=== PATIENT | female | born 1950 | race Caucasian/White ===

== ENCOUNTER 2017-05-12 16:36 | Inpatient (IN) | payer MEDICAID, MEDICARE ==
[2017-05-12] MEDS ORDERED: Sodium Chloride 0.9% 1,000 ML IV ONE (16:49)
[2017-05-12 16:50] VITALS: BMI 29.9
--- NOTE | 2017-05-12 17:11 | RAD ---
PROCEDURE: CHEST RADIOGRAPH, 1 VIEW HISTORY: Overdosed COMPARISON: Comparison made with chest radiograph 06/10/13 FINDINGS: LUNGS: .Hazy appearance of both lungs likely technical due to patient positioning, large body habitus and underpenetration. Leg diffuse less likely though not completely excluded. No focalconsolidation. PLEURA: Consolidation. No evidence of pneumothorax new. CARDIOVASCULAR: Heart appears enlarged. Aorta is ectatic and uncoiled mild adjacent OSSEOUS STRUCTURES: No significant abnormalities. VISUALIZED UPPER ABDOMEN: Normal. OTHER FINDINGS: None. IMPRESSION: Hazy appearance of both lungs likely technical due to patient positioning, large body habitus and underpenetration. Leg diffuse less likely though not completely excluded. No focalconsolidation.
[2017-05-12 17:49] LABS: EOS # 0.1 K/uL (0.0-0.7); LYMPH # 1.2 K/uL (1.0-4.3); MONO # 0.6 K/uL (0.0-0.8); RED CELL DISTRIBUTION WIDTH 13.5 % (11.5-14.5); WHITE BLOOD COUNT 5.5 K/uL (4.8-10.8)
[2017-05-12 18:03] LABS: BASO % 0.3 % (0.0-2.0); EOS % 1.1 % (0.0-4.0); HEMOGLOBIN 11.1 g/dL (11.0-16.0); LYMPH % 21.8 % (20.0-40.0); MEAN CELL VOLUME 84.3 fL (81.0-99.0); MEAN CORPUSCULAR HEMOGLOBIN 29.7 pg (27.0-31.0); MEAN CORPUSCULAR HGB CONC 35.2 g/dL (33.0-37.0); MONO % 11.2 % (0.0-10.0); NEUT # 3.6 K/uL (1.8-7.0); NEUT % 65.6 % (50.0-75.0); RBC 3.73 Mil/uL (3.80-5.20)
[2017-05-12 18:07] LABS: ALB/GLOB RATIO 1.1 (1.0-2.1); ALBUMIN 3.6 g/dL (3.5-5.0); ALT/SGPT 59 U/L (9-52); AST/SGOT 62 U/L (14-36); BLOOD UREA NITROGEN 23 mg/dL (7-17); GFR AFRICAN-AMERICAN > 60; GFR NON-AFRICAN AMERICAN > 60; MAGNESIUM 1.8 mg/dL (1.6-2.3)
[2017-05-12 18:08] LABS: ACETAMINOPHEN < 10.0 ug/mL (10.0-30.0); SALICYLATE < 1.0 mg/dL 1
--- NOTE | 2017-05-12 18:10 | C.PDOC ---
History Of Present Illness <Charlie Berger - Last Filed: 05/13/17 00:31> <Radha Cooper - Last Filed: 05/13/17 08:12> 67 yr old female brought in via EMS from a rehab facility, presents to the ER for substance abuse. As per EMS and rehab facility faculty, someone is actively bringing in alcohol, Xanax and another unknown prescription medicine. Patient was found to have consumed a large amount of Ambien and Xanax from the last refill. ROS is unavailable. (Charlie Berger) History Per: EMS, Other (rehab faculty) History/Exam Limitations: no limitations Onset/Duration Of Symptoms: Unknown Current Symptoms Are (Timing): Still Present <Charlie Berger - Last Filed: 05/13/17 00:31> <Radha Cooper - Last Filed: 05/13/17 08:12> Time Seen by Provider: 05/12/17 16:48 Chief Complaint (Nursing): Substance Abuse Past Medical History Reviewed: Historical Data, Nursing Documentation, Vital Signs - Medical History PMH: Anxiety, Cardia Arrhythmia (TACHYCARDIA), Depression, Diabetes, HTN Family History: States: No Known Family Hx - Social History Hx Tobacco Use: Yes Hx Alcohol Use: Yes Hx Substance Use: Yes (PER UNIVERSAL TRANSFER FORM) - Immunization History Hx Influenza Vaccination: Yes Hx Pneumococcal Vaccination: Yes <Charlie Berger - Last Filed: 05/13/17 00:31> Vital Signs: Last Vital Signs Temp 98.4 F 05/13/17 07:34 Pulse 86 05/13/17 07:34 Resp 16 05/13/17 07:34 BP 118/78 05/13/17 07:34 Pulse Ox 96 05/13/17 07:34 Review Of Systems Review Of Systems: ROS cannot be obtained secondary to pt's inabilty to answer questions. <Charlie Berger - Last Filed: 05/13/17 00:31> Physical Exam - Physical Exam Appears: Non-toxic, Other ((+) intoxicated, alcohol on breath, belligerent, argumentative, obese) Skin: Warm, Dry, No Rash Eye(s): bilateral: Normal Inspection, PERRL, EOMI Lips: Normal Appearing Cardiovascular: Rhythm Regular, No Murmur Respiratory: Normal Breath Sounds, No Rales, No Rhonchi, No Wheezing Gastrointestinal/Abdominal: Normal Exam, Soft, No Tenderness, No Guarding, No Rebound Extremity: Normal ROM, No Swelling Neurological/Psych: Other (Patient is alert but intoxicated) <Charlie Berger - Last Filed: 05/13/17 00:31> ED Course And Treatment - Laboratory Results Result Diagrams: 05/12/17 17:42 05/12/17 17:42 ECG: Interpreted By Pa ECG Rhythm: Sinus Rhythm ECG Interpretation: Normal Rate From EC O2 Sat by Pulse Oximetry: 95 (RA) Pulse Ox Interpretation: Normal - Radiology CXR: Interpreted by Me CXR Interpretation: Yes: No Acute Disease Reevaluation Time: 01:00 Reassessment Condition: Improved (sitting up, arguing w staff, ate and drank food and juices. Coherent, sober, awake, aware. Pending p/u by her daughter "Kasandra" at "uknown time") <AbCharlie - Last Filed: 05/13/17 00:31> - Laboratory Results Result Diagrams: 05/12/17 17:42 05/12/17 17:42 <Radha Cooper - Last Filed: 05/13/17 08:12> Progress <AbCharlie - Last Filed: 05/13/17 00:31> - Data Reviewed Data Reviewed: Lab, Diagnostic imaging, EKG - Continuity of Care Discussed patient case with:: On-call PMD-pt unassigned <Radha Cooper - Last Filed: 05/13/17 08:12> - Re-Evaluation Re-evaluation Note: 05/13/17 07:00 S/O FROM DR SEGOVIA. PT KICKED OUT OF REHAB PROGRAM. FAMILY REFUSING TO TAKE PT HOME. PENDING ASSISTED PLACEMENT. MED CLEAR. 05/13/17 07:48 NO ACUTE INTOX. CLEAR SPEECH AO3. TOLERATING PO WO DIFF. PS NORMALLY USES A WALKER OR WC, CANNOT WALK WO ASSIST. PS DOES NOT WANT TO GO TO [facility]". UNSTEADY GAIT, CHRONIC. REQUIRES CONSTANT ASSISTANCE. 05/13/17 08:10 D/W DR ANDRADE [facility] WILL ADMIT. PLACE FULL INPT PER DR ANDRADE. (Radha Cooper) Medical Decision Making <Charlie Berger E - Last Filed: 05/13/17 00:31> <KennethRadha - Last Filed: 05/13/17 08:12> Medical Decision Making: PLAN: * CXR * EKG * Labs * Urinalysis * Sodium Chloride IV 0100: benzo abuse of prescribed Xanax while in Sub-acute Rehab, baseline psych issues. no sig tox issues today, back to baseline in ED, pending pickup by babitaugher d/c'd IV as pt repeatedly threatened to "rip it out" herself. extensive d/w Crisis Workers and Psych and [facility]- pt not welcomed back to [facility]- daughter aware. Too cold to d/c pt to street, she is essentially homeless so d/c to daughter's care is pts only option. (Charlie Berger) Disposition Doctor Will See Patient In The: Office Counseled Patient/Family Regarding: Studies Performed, Diagnosis - Disposition Disposition Time: 01:00 <Charlie Berger - Last Filed: 05/13/17 00:31> Counseled Patient/Family Regarding: Studies Performed, Diagnosis, Need For Followup, Smoking Cessation - Disposition Disposition Time: 08:11 - POA Present On Arrival: None <Radha Cooper - Last Filed: 05/13/17 08:12> - Disposition Referrals: YOUR,PMD [Other] Disposition: HOSPITALIZED Condition: STABLE Forms: [employer] (Macedonian) - Clinical Impression Clinical Impression: Schizophrenia, Benzodiazepine abuse, Gait instability, Chronic pain, Homeless - Scribe Statement The provider has reviewed the documentation as recorded by the Scribe <Charlie Berger - Last Filed: 05/13/17 00:31> <Radha Cooper - Last Filed: 05/13/17 08:12> - Scribe Statement Sarah Zurita (Charlie Berger) Provider Attestation: All medical record entries made by the Scribe were at my direction and personally dictated by me. I have reviewed the chart and agree that the record accurately reflects my personal performance of the history, physical exam, medical decision making, and the department course for this patient. I have also personally directed, reviewed, and agree with the discharge instructions and disposition. (Charlie Berger) Physician Patient Turnover Patient Signed Over To: Dorie Segovia Handoff Comments: dispo when pt's daughter comes to pick her up. <Charlie Berger - Last Filed: 05/13/17 00:31> Decision To Admit <Charlie Berger - Last Filed: 05/13/17 00:31> - Pt Status Changed To: Hospital Disposition Of: Inpatient - Admit Certification Admit to Inpatient:: After my assessment, the patient will require hospitalization for at least two midnights. This is because of the severity of symptoms shown, intensity of services needed, and/or the medical risk in this patient being treated as an outpatient. - InPatient: Physician Admission Certification: I certify that this patient requires 2 or more midnights of care for the following reason:: SEE NOTE - . Bed Request Type: Regular Admitting Physician: Shauna Andrade <Radha Cooper - Last Filed: 05/13/17 08:12> - . Patient Diagnosis: Schizophrenia, Benzodiazepine abuse, Gait instability
[2017-05-12 18:47] LABS: BARBITURATES, UR NEGATIVE (NEGATIVE); OPIATES, UR NEGATIVE (NEGATIVE); PHENCYCLIDINE, UR NEGATIVE (NEGATIVE)
[2017-05-12 18:49] LABS: BENZODIAZEPINES, UR POSITIVE (NEGATIVE)
[2017-05-12 19:08] LABS: SQUAMOUS EPITHIAL 8 /hpf (0-5); URINE BACTERIA MANY (<OCC); URINE BILIRUBIN NEGATIVE (NEGATIVE); URINE BLOOD NEGATIVE (NEGATIVE); URINE CLARITY Hazy (Clear); URINE COLOR Yellow (YELLOW); URINE GLUCOSE (UA) NORMAL (Normal); URINE LEUKOCYTE ESTERASE TRACE Leu/uL (Negative); URINE NITRATE POSITIVE (NEGATIVE); URINE PROTEIN NEGATIVE (NEGATIVE)
[2017-05-13 11:48] LABS: BASO % 0.4 % (0.0-2.0); EOS # 0.1 K/uL (0.0-0.7); EOS % 2.1 % (0.0-4.0); HEMOGLOBIN 10.8 g/dL (11.0-16.0); LYMPH # 1.1 K/uL (1.0-4.3); LYMPH % 29.7 % (20.0-40.0); MEAN CELL VOLUME 84.6 fL (81.0-99.0); MEAN CORPUSCULAR HEMOGLOBIN 28.5 pg (27.0-31.0); MEAN CORPUSCULAR HGB CONC 33.7 g/dL (33.0-37.0); MEAN PLATELET VOLUME 10.1 fL (7.2-11.7); MONO # 0.4 K/uL (0.0-0.8); MONO % 10.9 % (0.0-10.0); NEUT # 2.1 K/uL (1.8-7.0); NEUT % 56.9 % (50.0-75.0); RBC 3.78 Mil/uL (3.80-5.20); RED CELL DISTRIBUTION WIDTH 13.2 % (11.5-14.5); WHITE BLOOD COUNT 3.7 K/uL (4.8-10.8)
[2017-05-13 12:08] LABS: ALB/GLOB RATIO 1.1 (1.0-2.1); ALBUMIN 3.5 g/dL (3.5-5.0); ALT/SGPT 47 U/L (9-52); AST/SGOT 45 U/L (14-36); BLOOD UREA NITROGEN 14 mg/dL (7-17); CALCIUM 8.6 mg/dl (8.6-10.4); GFR AFRICAN-AMERICAN > 60; GFR NON-AFRICAN AMERICAN > 60; MAGNESIUM 1.8 mg/dL (1.6-2.3)
[2017-05-13 13:37] VITALS: RESP 20
--- NOTE | 2017-05-13 15:39 | PCM.PSYCH ---
Initial Psychiatric Evaluation - Initial Psychiatric Evaluation Type of Admission: Voluntary Legal Status: Capacity History of Present Illness and Precipitating Events: Patient is 67 y/o HF, who was escorted to the ED from the [facility] Nursing, because of manic and disorganized behavior. Pt was a poor historian. She remained manic, talkative, irritable and disorganized during the interview. She remained angry, and continued to refuse to answer all the questions. She was mad at the nurses and she was refusing to take the medications. When asked, she replied they are trying to put me to sleep. She appeared anxious and suspicious, and appeared to have loose associations. As per the staff, pt remained irritable and agitated, since yesterday. She reports that 'she is unable to sleep for few days and feeling very anxious and they ([facility]) dropped her to the ED.' However, she wants to go back to the rehab. She denies any AVH and denies any SI/HI. Current Medications: Active Medications Generic Name Dose Route Start Last Admin Trade Name Alison PRN Reason Stop Dose Admin Alprazolam 1 mg 05/13/17 15:32 Xanax PO 05/13/17 15:33 STAT STA Famotidine 20 mg 05/13/17 10:00 05/13/17 08:42 Pepcid PO 20 mg BID PRABHA Administration Gabapentin 300 mg 05/13/17 18:00 Neurontin PO TID PRABHA Hydroxyzine HCl 25 mg 05/13/17 15:32 Atarax PO Q6 PRN Agitation Lorazepam 1 mg 05/13/17 15:33 Ativan PO Q6 PRN Anxiety Trazodone HCl 50 mg 05/13/17 22:00 Desyrel PO HS [facility] Past Psychiatric History - Past Psychiatric History Previous Treatment History: None Pertinent Medical Hx (Current Medical&Sleep Prob, Allergies): Allergies Allergy/AdvReac Type Severity Reaction Status Date / Time dust Allergy Uncoded 05/12/17 16:50 Acetaminophen 325 mg PO Q4 PRN 05/12/17 Bisacodyl [Dulcolax] 10 mg RC PRN PRN 05/12/17 Ferrous Sulfate 325 mg PO DAILY 05/12/17 Folic Acid 1 mg PO DAILY 05/12/17 Furosemide 40 mg PO Q12 05/12/17 Haloperidol [Haldol] 0.5 mg PO HS 05/12/17 Insulin Aspart, Recombinant [Novolog] See Protocol SC ACHS 05/12/17 LORazepam [Ativan] 1 mg PO Q6 PRN 05/12/17 Losartan Potassium [Cozaar] 100 mg PO DAILY 05/12/17 Magnesium Hydroxide [Milk Of Magnesia] 30 ml PO DAILY PRN 05/12/17 Multivitamin [Multivitamins] 1 each PO DAILY 05/12/17 Omeprazole 20 mg PO DAILY 05/12/17 Oxycodone HCl/Acetaminophen [Acetaminophen-Oxycodone 325 mg-5 mg] 1 tab PO Q8 PRN 05/12/17 Thiamine [Vitamin B-1] 100 mg PO DAILY 05/12/17 Zolpidem [Ambien] 10 mg PO HS 05/12/17 amLODIPine [Norvasc] 10 mg PO DAILY 05/12/17 Review of Systems - Review of Systems All systems: reviewed and no additional remarkable complaints except - Psychiatric Psychiatric: Anxiety, Irritability. absent: Suicidal Ideation Mental Status Examination - Personal Presentation Personal Presentation: Looks stated age - Affect Affect: Constricted - Motor Activity Motor Activity: Psychomotor Agitation - Reliability in Providing Information Reliability in Providing Information: Poor, due to altered mood - Speech Speech: Disorganized - Mood Mood: Anxious - Formal Thought Process Formal Thought Process: Paranoia, Loosening of associations - Hallucinations/Delusions Delusions: Persecution - Obsessions/Compulsions Obsessions: No Compulsions: No - Cognitive Functions Orientation: Person, Place, Situation, Time Sensorium: Alert Attention/Concentration: Attentive Abstract Thinking: [place] Estimate of Intelligence: Below average Judgement: Imparied, as evidence by: Poor judgement, Imparied, as evidence by: Lack of insight into illness - Risk Risk: Diminished functioning - Limitations Limitations: Living alone DSM 5 DX - DSM 5 DSM 5 Diagnosis: Bipolar disorder mixed severe with psychotic features Generalized anxiety disorder - Recommended/Plan of Treatment Treatment Recommendations and Plan of Treatment: Bipolar disorder mixed severe with psychotic features Trazodone 50 mg by mouth daily at bedtime Neurontin 300 mg by mouth 3 times a day Risperdal 1 mg by mouth daily at bedtime Cogentin 1 mg by mouth daily at bedtime Generalized anxiety disorder Sedative/hypnotic use disorder severe Ativan when necessary - Smoking Cessation Smoking Cessation Initiated: No
[2017-05-13] MEDS ORDERED: Dextrose 50% SYRINGE Inj (50 ml) IV PRN (17:52)
[2017-05-13] MEDS ORDERED: Glucagon Recombinant 1 mg Inj IM PRN (17:52)
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
[2017-05-13] MEDS: (Novolin R) Insulin Human Regular 100 units/ml vial SC SCH (21:31)
[2017-05-14 07:39] LABS: BASO % 0.4 % (0.0-2.0); EOS # 0.1 K/uL (0.0-0.7); EOS % 2.9 % (0.0-4.0); HEMOGLOBIN 11.4 g/dL (11.0-16.0); LYMPH # 1.3 K/uL (1.0-4.3); LYMPH % 33.6 % (20.0-40.0); MEAN CELL VOLUME 84.4 fL (81.0-99.0); MEAN CORPUSCULAR HEMOGLOBIN 28.9 pg (27.0-31.0); MEAN CORPUSCULAR HGB CONC 34.3 g/dL (33.0-37.0); MEAN PLATELET VOLUME 9.8 fL (7.2-11.7); MONO # 0.3 K/uL (0.0-0.8); MONO % 8.6 % (0.0-10.0); NEUT # 2.1 K/uL (1.8-7.0); NEUT % 54.5 % (50.0-75.0); RBC 3.95 Mil/uL (3.80-5.20); RED CELL DISTRIBUTION WIDTH 13.1 % (11.5-14.5); WHITE BLOOD COUNT 3.8 K/uL (4.8-10.8)
[2017-05-14 07:43] LABS: ALB/GLOB RATIO 1.1 (1.0-2.1); ALBUMIN 3.6 g/dL (3.5-5.0); ALT/SGPT 42 U/L (9-52); AST/SGOT 35 U/L (14-36); BLOOD UREA NITROGEN 10 mg/dL (7-17); CALCIUM 8.9 mg/dl (8.6-10.4); GFR AFRICAN-AMERICAN > 60; GFR NON-AFRICAN AMERICAN > 60; HDL CHOLESTEROL 19 mg/dL (30-70); MAGNESIUM 1.8 mg/dL (1.6-2.3)
[2017-05-14 07:45] LABS: LDL CHOLESTEROL 93 mg/dL (0-129)
[2017-05-14] MEDS: (Novolin R) Insulin Human Regular 100 units/ml vial SC SCH ×4 (08:50→21:18)
[2017-05-14] MEDS: Pantoprazole 40 mg EC Tab PO SCH (09:50)
--- NOTE | 2017-05-14 11:04 | CP.PCM.PN ---
<Kel Moura - Last Filed: 05/14/17 16:09> Subjective - Date & Time of Evaluation Date of Evaluation: 05/14/17 Time of Evaluation: 07:30 - Subjective Subjective: Medicine progress note for Dr. Choe Patient seen and examined. Patient reports continuation of chronic body aches primarily in the low back with radiation to the extremities. Patient denies fever, chills, chest pain, dyspnea, abdominal pain. Objective - Vital Signs/Intake and Output Vital Signs (last 24 hours): Temp Pulse Resp BP Pulse Ox 98.5 F 86 20 135/76 97 05/14/17 08:30 05/14/17 08:30 05/14/17 08:30 05/14/17 08:30 05/14/17 08:30 Intake and Output: 05/14/17 05/14/17 06:59 18:59 Intake Total 690 Balance 690 - Medications Medications: Current Medications Benztropine Mesylate (Cogentin) 1 mg PO HS [facility] Last Admin: 05/13/17 21:28 Dose: 1 mg Dextrose (Dextrose 50% Inj) 0 ml IV STAT PRN; Protocol PRN Reason: Hypoglycemia Protocol Dextrose (Glutose 15) 0 gm PO ONCE PRN; Protocol PRN Reason: Hypoglycemia Protocol Gabapentin (Neurontin) 300 mg PO TID [facility] Last Admin: 05/14/17 09:50 Dose: 300 mg Glucagon (Glucagen Diagnostic Kit) 0 mg IM STAT PRN; Protocol PRN Reason: Hypoglycemia Protocol Hydroxyzine HCl (Atarax) 25 mg PO Q6 PRN PRN Reason: Agitation Last Admin: 05/14/17 09:51 Dose: 25 mg Dextrose (Dextrose 5% In Water 1000 Ml) 1,000 mls @ 0 mls/hr IV .Q0M PRN; Protocol; Per Protocol PRN Reason: Hypoglycemia Protocol Insulin Human Regular (Novolin R) 0 unit SC ACHS [facility] PRN Reason: Protocol Last Admin: 05/14/17 08:50 Dose: 3 unit Lorazepam (Ativan) 1 mg PO Q6 PRN PRN Reason: Anxiety Nitrofurantoin Macrocrystals (Macrobid) 100 mg PO Q12H [facility] Last Admin: 05/14/17 09:51 Dose: 100 mg Pantoprazole Sodium (Protonix Ec Tab) 40 mg PO DAILY [facility] Last Admin: 05/14/17 09:50 Dose: 40 mg Risperidone (Risperdal Tab) 1 mg PO HS [facility] Last Admin: 05/13/17 21:30 Dose: 1 mg Trazodone HCl (Desyrel) 50 mg PO [facility] Last Admin: 05/13/17 21:28 Dose: 50 mg - Labs Labs: 05/14/17 06:54 05/14/17 06:54 - Constitutional Appears: No Acute Distress - Head Exam Head Exam: ATRAUMATIC, NORMOCEPHALIC - Eye Exam Eye Exam: EOMI, Normal appearance - ENT Exam ENT Exam: Mucous Membranes Moist - Respiratory Exam Respiratory Exam: Clear to Ausculation Bilateral, NORMAL BREATHING PATTERN. absent: Rales, Rhonchi, Wheezes - Cardiovascular Exam Cardiovascular Exam: REGULAR RHYTHM, +S1, +S2 - GI/Abdominal Exam GI & Abdominal Exam: Soft, Normal Bowel Sounds. absent: Distended, Guarding, Tenderness - Extremities Exam Extremities Exam: absent: Pedal Edema Additional comments: venous stasis changes bilaterally - Neurological Exam Neurological Exam: Alert, Awake, Oriented x3 - Psychiatric Exam Psychiatric exam: Anxious - Skin Skin Exam: Dry, Warm Assessment and Plan - Assessment and Plan (Free Text) Plan: Polysubstance Abuse Psychiatry recs: Cogentine 1mg PO HS Gabapentine 300mg PO TID Hydroxyzine 25mg PO Q6 prn Ativan 1mg PO Q6 prn Risperidone 1mg PO HS UDS positive for benzos 1:1 for observation Patient was found taking more medications than she was being given in rehab. Apparently other people were bringing meds and alcohol into the facility. Patient denies. She actually says that they have been taking medications from her. Unsteady Gait f/u Case managment for placement Patient can only ambulate with walker and needs assistance Diabetes Accuchecks ACHS ISS Hypoglycemis protocol Hgba1c 10 lipid panel unremarkable f/u TSH, free T4 UTI + nitrate and WBC Urine cultures grew gram neg rods Macrobid 100 mg PO Q12 Prophylactic Measures SCDS VTE contraindicated due to thrombocytopenic Protonix 40mg PO daily PT/OT Diabetic diet Patient refusing IV access. Disposition: Will need to follow up with social work team for discharge planning. Case DW Dr. Daija Moura PGY-1 <Mynor Choe H - Last Filed: 05/14/17 16:40> Objective - Vital Signs/Intake and Output Vital Signs (last 24 hours): Temp Pulse Resp BP Pulse Ox 98.5 F 86 20 135/76 97 05/14/17 08:30 05/14/17 08:30 05/14/17 08:30 05/14/17 08:30 05/14/17 08:30 Intake and Output: 05/14/17 05/14/17 06:59 18:59 Intake Total 690 Balance 690 - Medications Medications: Current Medications Benztropine Mesylate (Cogentin) 1 mg PO [facility] Last Admin: 05/13/17 21:28 Dose: 1 mg Dextrose (Dextrose 50% Inj) 0 ml IV STAT PRN; Protocol PRN Reason: Hypoglycemia Protocol Dextrose (Glutose 15) 0 gm PO ONCE PRN; Protocol PRN Reason: Hypoglycemia Protocol Gabapentin (Neurontin) 300 mg PO TID [facility] Last Admin: 05/14/17 14:47 Dose: Not Given Glucagon (Glucagen Diagnostic Kit) 0 mg IM STAT PRN; Protocol PRN Reason: Hypoglycemia Protocol Hydroxyzine HCl (Atarax) 25 mg PO Q6 PRN PRN Reason: Agitation Last Admin: 05/14/17 09:51 Dose: 25 mg Dextrose (Dextrose 5% In Water 1000 Ml) 1,000 mls @ 0 mls/hr IV .Q0M PRN; Protocol; Per Protocol PRN Reason: Hypoglycemia Protocol Insulin Human Regular (Novolin R) 0 unit SC [facility] PRN Reason: Protocol Last Admin: 05/14/17 13:00 Dose: 4 unit Lorazepam (Ativan) 1 mg PO Q6 PRN PRN Reason: Anxiety Last Admin: 05/14/17 15:45 Dose: 1 mg Nitrofurantoin Macrocrystals (Macrobid) 100 mg PO Q12H [facility] Last Admin: 05/14/17 09:51 Dose: 100 mg Pantoprazole Sodium (Protonix Ec Tab) 40 mg PO DAILY [facility] Last Admin: 05/14/17 09:50 Dose: 40 mg Pneumococcal Polyvalent Vaccine (Pneumovax 23 Vaccine) 0.5 ml IM .ONCE ONE Stop: 05/16/17 10:01 Risperidone (Risperdal Tab) 1 mg PO [facility] Last Admin: 05/13/17 21:30 Dose: 1 mg Trazodone HCl (Desyrel) 50 mg PO [facility] Last Admin: 05/13/17 21:28 Dose: 50 mg - Labs Labs: 05/14/17 06:54 05/14/17 06:54 Attending/Attestation - Attestation I have personally seen and examined this patient.: Yes I have fully participated in the care of the patient.: Yes I have reviewed all pertinent clinical information, including history, physical exam and plan: Yes Notes (Text): Medical attending: Patient was seen and examined by me, agrees the above note by medical laboratory assistant. Reviewed the above note by the resident and agree. This is my first time meeting patient, I had reviewed the previous notes as well discussed with the patient and the medical staff. It seems that she was recently at [facility] when they reportedly were very concerned about the patient taking an over the large amount of medication in particular narcotics. It seems that she does get Percocet as well as extended release morphine on a regular basis however the message that we are getting is that there was a family member bring in even more controlled substances. When I saw her this morning, she reported on the chronic back as well as leg pain that has been going on for quite some time now. She tells me that she is normally wheelchair-bound. At this moment she is receiving gabapentin, Ativan, and risperidone per psychiatry. I explained to the patient that we listened to her concerns about her pain. Because she just came in yesterday and was reportedly very somnolent were still going to have alternating additional pain medication that she is asking for. Regarding her reevaluate her again tomorrow and make a decision if the patient could be restarted on regular pain medication. But as of now we are reluctant to restart these medications. Thank you very much, Mynor Choe
[2017-05-14] MEDS: Divalproex 250 mg DR Tab PO SCH (22:53)
[2017-05-15 06:53] LABS: BASO % 0.3 % (0.0-2.0); EOS # 0.1 K/uL (0.0-0.7); EOS % 2.8 % (0.0-4.0); LYMPH # 1.7 K/uL (1.0-4.3); LYMPH % 35.2 % (20.0-40.0); MEAN CELL VOLUME 84.3 fL (81.0-99.0); MEAN CORPUSCULAR HGB CONC 34.5 g/dL (33.0-37.0); MEAN PLATELET VOLUME 9.3 fL (7.2-11.7); MONO # 0.4 K/uL (0.0-0.8); MONO % 8.9 % (0.0-10.0); NEUT # 2.5 K/uL (1.8-7.0); NEUT % 52.8 % (50.0-75.0); NRBC % 0.1 % (0.0-2.0); RBC 4.13 Mil/uL (3.80-5.20); RED CELL DISTRIBUTION WIDTH 13.5 % (11.5-14.5); WHITE BLOOD COUNT 4.8 K/uL (4.8-10.8)
--- NOTE | 2017-05-15 07:14 | CP.PCM.PN ---
<Kel Moura - Last Filed: 05/15/17 12:41> Subjective - Date & Time of Evaluation Date of Evaluation: 05/15/17 Time of Evaluation: 07:00 - Subjective Subjective: Medicine progress note for Dr. Choe Patient seen and examined. Patient continuing to complain of diffuse body pain and lower back pain. Patient also complaining of leg pains and paresthesias although she has been refusing her Gabapentin. Patient was very anxious this morning when seen on rounds. Objective - Vital Signs/Intake and Output Vital Signs (last 24 hours): Temp Pulse Resp BP Pulse Ox 98.4 F 85 20 155/98 H 96 05/15/17 00:00 05/15/17 00:00 05/15/17 00:00 05/15/17 00:00 05/15/17 00:00 Intake and Output: 05/15/17 05/15/17 06:59 18:59 Intake Total 240 Balance 240 - Medications Medications: Current Medications Alprazolam (Xanax) 0.5 mg PO TID PRN PRN Reason: Anxiety Benztropine Mesylate (Cogentin) 1 mg PO [facility] Last Admin: 05/14/17 21:13 Dose: 1 mg Dextrose (Dextrose 50% Inj) 0 ml IV STAT PRN; Protocol PRN Reason: Hypoglycemia Protocol Dextrose (Glutose 15) 0 gm PO ONCE PRN; Protocol PRN Reason: Hypoglycemia Protocol Divalproex Sodium (Depakote Dr) 250 mg PO [facility] Last Admin: 05/14/17 22:53 Dose: 250 mg Divalproex Sodium (Depakote Dr) 250 mg PO BID [facility] Gabapentin (Neurontin) 300 mg PO TID [facility] Last Admin: 05/14/17 19:06 Dose: Not Given Glucagon (Glucagen Diagnostic Kit) 0 mg IM STAT PRN; Protocol PRN Reason: Hypoglycemia Protocol Hydroxyzine HCl (Atarax) 25 mg PO Q6 PRN PRN Reason: Agitation Last Admin: 05/14/17 09:51 Dose: 25 mg Dextrose (Dextrose 5% In Water 1000 Ml) 1,000 mls @ 0 mls/hr IV .Q0M PRN; Protocol; Per Protocol PRN Reason: Hypoglycemia Protocol Insulin Human Regular (Novolin R) 0 unit SC [facility] PRN Reason: Protocol Last Admin: 05/14/17 21:18 Dose: 2 unit Lorazepam (Ativan) 1 mg PO Q6 PRN PRN Reason: Anxiety Last Admin: 05/14/17 23:56 Dose: 1 mg Nitrofurantoin Macrocrystals (Macrobid) 100 mg PO Q12H [facility] Last Admin: 05/14/17 21:13 Dose: 100 mg Pantoprazole Sodium (Protonix Ec Tab) 40 mg PO DAILY [facility] Last Admin: 05/14/17 09:50 Dose: 40 mg Pneumococcal Polyvalent Vaccine (Pneumovax 23 Vaccine) 0.5 ml IM .ONCE ONE Stop: 05/16/17 10:01 Risperidone (Risperdal Tab) 1 mg PO HS [facility] Last Admin: 05/14/17 21:13 Dose: 1 mg Trazodone HCl (Desyrel) 50 mg PO [facility] Last Admin: 05/14/17 21:13 Dose: 50 mg - Labs Labs: 05/15/17 06:42 05/14/17 06:54 - Additional Findings Additional findings: - Constitutional Appears: No Acute Distress - Head Exam Head Exam: ATRAUMATIC, NORMOCEPHALIC - Eye Exam Eye Exam: EOMI, Normal appearance - ENT Exam ENT Exam: Mucous Membranes Moist - Respiratory Exam Respiratory Exam: Clear to Ausculation Bilateral, NORMAL BREATHING PATTERN. absent: Rales, Rhonchi, Wheezes - Cardiovascular Exam Cardiovascular Exam: REGULAR RHYTHM, +S1, +S2 - GI/Abdominal Exam GI & Abdominal Exam: Soft, Normal Bowel Sounds. absent: Distended, Guarding, Tenderness - Extremities Exam Extremities Exam: absent: Pedal Edema Additional comments: venous stasis changes bilaterally - Neurological Exam Neurological Exam: Alert, Awake, Oriented x3 - Psychiatric Exam Psychiatric exam: Anxious - Skin Skin Exam: Dry, Warm Assessment and Plan - Assessment and Plan (Free Text) Plan: Polysubstance Abuse Psychiatry recs: Cogentine 1mg PO HS Gabapentine 300mg PO TID Hydroxyzine 25mg PO Q6 prn Ativan 1mg PO Q6 prn Risperidone 1mg PO HS UDS positive for benzos 1:1 for observation Patient was found taking more medications than she was being given in rehab. Apparently other people were bringing meds and alcohol into the facility. Patient denies. She actually says that they have been taking medications from her. Unsteady Gait and diffuse pain f/u Case managment for placement Patient can only ambulate with walker and needs assistance Resumed MISA medication Percocet 5/325 Q8H prn Started Oxycontin 20 mg PO Q12H [facility] Diabetes Accuchecks ACHS ISS Hypoglycemis protocol Hgba1c 10 lipid panel unremarkable f/u TSH, free T4 UTI + nitrate and WBC Urine cultures grew E. coli. Limited in what can be given since patient refusing IV access. Macrobid 100 mg PO Q12 Prophylactic Measures SCDS VTE contraindicated due to thrombocytopenic Protonix 40mg PO daily PT/OT Diabetic diet Disposition: Will need to follow up with social work team for discharge planning. Case DW Dr. Daija Moura PGY-1 <Mynor Choe H - Last Filed: 05/15/17 16:45> Objective - Vital Signs/Intake and Output Vital Signs (last 24 hours): Temp Pulse Resp BP Pulse Ox 98.4 F 85 20 155/98 H 96 05/15/17 00:00 05/15/17 00:00 05/15/17 00:00 05/15/17 00:00 05/15/17 00:00 Intake and Output: 05/15/17 05/15/17 06:59 18:59 Intake Total 240 Balance 240 - Medications Medications: Current Medications Alprazolam (Xanax) 0.5 mg PO TID PRN PRN Reason: Anxiety Benztropine Mesylate (Cogentin) 1 mg PO HS [facility] Last Admin: 05/14/17 21:13 Dose: 1 mg Dextrose (Dextrose 50% Inj) 0 ml IV STAT PRN; Protocol PRN Reason: Hypoglycemia Protocol Dextrose (Glutose 15) 0 gm PO ONCE PRN; Protocol PRN Reason: Hypoglycemia Protocol Divalproex Sodium (Depakote Dr) 250 mg PO HS [facility] Last Admin: 05/14/17 22:53 Dose: 250 mg Divalproex Sodium (Depakote Dr) 250 mg PO BID [facility] Last Admin: 05/15/17 09:31 Dose: 250 mg Gabapentin (Neurontin) 300 mg PO TID [facility] Last Admin: 05/15/17 13:11 Dose: Not Given Glucagon (Glucagen Diagnostic Kit) 0 mg IM STAT PRN; Protocol PRN Reason: Hypoglycemia Protocol Hydroxyzine HCl (Atarax) 25 mg PO Q6 PRN PRN Reason: Agitation Last Admin: 05/14/17 09:51 Dose: 25 mg Dextrose (Dextrose 5% In Water 1000 Ml) 1,000 mls @ 0 mls/hr IV .Q0M PRN; Protocol; Per Protocol PRN Reason: Hypoglycemia Protocol Insulin Human Regular (Novolin R) 0 unit SC ACHS [facility] PRN Reason: Protocol Last Admin: 05/15/17 11:45 Dose: 6 unit Lorazepam (Ativan) 1 mg PO Q6 PRN PRN Reason: Anxiety Last Admin: 05/15/17 11:05 Dose: 1 mg Nitrofurantoin Macrocrystals (Macrobid) 100 mg PO Q12H [facility] Last Admin: 05/15/17 09:07 Dose: 100 mg Oxycodone HCl (Oxycontin Extended Release Tab) 20 mg PO Q12 [facility] Last Admin: 05/15/17 11:45 Dose: 20 mg Oxycodone/Acetaminophen (Percocet 5/325 Mg Tab) 1 tab PO Q8 PRN PRN Reason: Pain, severe (8-10) Stop: 05/18/17 08:56 Last Admin: 05/15/17 09:06 Dose: 1 tab Pantoprazole Sodium (Protonix Ec Tab) 40 mg PO DAILY [facility] Last Admin: 05/15/17 09:06 Dose: 40 mg Pneumococcal Polyvalent Vaccine (Pneumovax 23 Vaccine) 0.5 ml IM .ONCE ONE Stop: 05/16/17 10:01 Risperidone (Risperdal Tab) 1 mg PO [facility] Last Admin: 05/14/17 21:13 Dose: 1 mg Trazodone HCl (Desyrel) 50 mg PO [facility] Last Admin: 05/14/17 21:13 Dose: 50 mg - Labs Labs: 05/15/17 06:42 05/15/17 06:42 Attending/Attestation - Attestation I have personally seen and examined this patient.: Yes I have fully participated in the care of the patient.: Yes I have reviewed all pertinent clinical information, including history, physical exam and plan: Yes Notes (Text): 05/15/17 16:45 Medical attending: Patient was seen and examined by me as well, agrees the above note by the medical doctor nuclear medicine. At this morning when we came and saw the patient she was sitting up in bed, she was crying. She reported feeling very anxious, nervous, worried, chronic pain, It was difficult to have conversation with her today. Earlier in the morning because of repeat phone calls of the patient having pain we decided to restart her Percocet and later on in the day her blood pressure was still okay so we started a long acting OxyContin XR. I told this to her however he does of her history of potential either overdose or abuse were not to give much more than this. Because she was so agitated and angry when where walking and I don't know if she actually understood this or even hurt this. So per my discussion with caseworkers were to try see if there is a place that the patient can go to for [id number] Thank you very much, Mynor Choe
[2017-05-15] MEDS: (Novolin R) Insulin Human Regular 100 units/ml vial SC SCH ×4 (08:05→21:25)
[2017-05-15 08:19] LABS: ALBUMIN 3.6 g/dL (3.5-5.0); ALT/SGPT 37 U/L (9-52); AST/SGOT 27 U/L (14-36); BLOOD UREA NITROGEN 11 mg/dL (7-17); GFR AFRICAN-AMERICAN > 60; GFR NON-AFRICAN AMERICAN > 60; MAGNESIUM 1.6 mg/dL (1.6-2.3)
[2017-05-15] MEDS: Oxycodone/Acetaminophen 5/325 mg Tab PO PRN (09:06)
[2017-05-15] MEDS: Pantoprazole 40 mg EC Tab PO SCH (09:06)
[2017-05-15] MEDS ORDERED: Potassium Chloride 20 mEq/15 ml LIQ UD PO ONE (09:26)
[2017-05-15] MEDS: Divalproex 250 mg DR Tab PO SCH ×3 (09:31→21:21)
[2017-05-15] MEDS: oxyCODONE 20 mg ER Tab (oxyCONTIN) PO SCH ×2 (11:45→21:22)
--- NOTE | 2017-05-16 07:16 | CP.PCM.PN ---
<Kel Moura S - Last Filed: 05/16/17 12:57> Subjective - Date & Time of Evaluation Date of Evaluation: 05/16/17 Time of Evaluation: 07:50 - Subjective Subjective: Medicine progress note for Dr. Choe Patient seen and examined. Patient states that her pain is improved, and she was able to get some sleep. Patient with no other complaints at this time aside from her continued complaints about [facility]. Objective - Vital Signs/Intake and Output Vital Signs (last 24 hours): Temp Pulse Resp BP Pulse Ox 99.1 F 98 H 20 120/78 100 05/16/17 00:00 05/16/17 00:00 05/16/17 00:00 05/16/17 00:00 05/16/17 00:00 Intake and Output: 05/16/17 05/16/17 06:59 18:59 Intake Total 360 Balance 360 - Medications Medications: Current Medications Alprazolam (Xanax) 0.5 mg PO TID PRN PRN Reason: Anxiety Benztropine Mesylate (Cogentin) 1 mg PO [facility] Last Admin: 05/15/17 21:21 Dose: 1 mg Dextrose (Dextrose 50% Inj) 0 ml IV STAT PRN; Protocol PRN Reason: Hypoglycemia Protocol Dextrose (Glutose 15) 0 gm PO ONCE PRN; Protocol PRN Reason: Hypoglycemia Protocol Divalproex Sodium (Depakote Dr) 250 mg PO [facility] Last Admin: 05/15/17 21:21 Dose: 250 mg Divalproex Sodium (Depakote Dr) 250 mg PO BID [facility] Last Admin: 05/15/17 17:48 Dose: 250 mg Gabapentin (Neurontin) 300 mg PO TID [facility] Last Admin: 05/15/17 21:22 Dose: Not Given Glucagon (Glucagen Diagnostic Kit) 0 mg IM STAT PRN; Protocol PRN Reason: Hypoglycemia Protocol Hydroxyzine HCl (Atarax) 25 mg PO Q6 PRN PRN Reason: Agitation Last Admin: 05/14/17 09:51 Dose: 25 mg Dextrose (Dextrose 5% In Water 1000 Ml) 1,000 mls @ 0 mls/hr IV .Q0M PRN; Protocol; Per Protocol PRN Reason: Hypoglycemia Protocol Insulin Human Regular (Novolin R) 0 unit SC [facility] PRN Reason: Protocol Last Admin: 05/15/17 21:25 Dose: 2 unit Lorazepam (Ativan) 1 mg PO Q6 PRN PRN Reason: Anxiety Last Admin: 05/15/17 11:05 Dose: 1 mg Nitrofurantoin Macrocrystals (Macrobid) 100 mg PO Q12H [facility] Last Admin: 05/15/17 21:21 Dose: 100 mg Oxycodone HCl (Oxycontin Extended Release Tab) 20 mg PO Q12 [facility] Last Admin: 05/15/17 21:22 Dose: 20 mg Oxycodone/Acetaminophen (Percocet 5/325 Mg Tab) 1 tab PO Q8 PRN PRN Reason: Pain, severe (8-10) Stop: 05/18/17 08:56 Last Admin: 05/15/17 09:06 Dose: 1 tab Pantoprazole Sodium (Protonix Ec Tab) 40 mg PO DAILY [facility] Last Admin: 05/15/17 09:06 Dose: 40 mg Pneumococcal Polyvalent Vaccine (Pneumovax 23 Vaccine) 0.5 ml IM .ONCE ONE Stop: 05/16/17 10:01 Risperidone (Risperdal Tab) 1 mg PO [facility] Last Admin: 05/15/17 21:21 Dose: 1 mg Trazodone HCl (Desyrel) 50 mg PO [facility] Last Admin: 05/15/17 21:21 Dose: 50 mg - Labs Labs: 05/15/17 06:42 05/15/17 06:42 - Additional Findings Additional findings: - Constitutional Appears: No Acute Distress - Head Exam Head Exam: ATRAUMATIC, NORMOCEPHALIC - Eye Exam Eye Exam: EOMI, Normal appearance - ENT Exam ENT Exam: Mucous Membranes Moist - Respiratory Exam Respiratory Exam: Clear to Ausculation Bilateral, NORMAL BREATHING PATTERN. absent: Rales, Rhonchi, Wheezes - Cardiovascular Exam Cardiovascular Exam: REGULAR RHYTHM, +S1, +S2 - GI/Abdominal Exam GI & Abdominal Exam: Soft, Normal Bowel Sounds. absent: Distended, Guarding, Tenderness - Extremities Exam Extremities Exam: absent: Pedal Edema Additional comments: venous stasis changes bilaterally - Neurological Exam Neurological Exam: Alert, Awake, Oriented x3 - Psychiatric Exam Psychiatric exam: Anxious - Skin Skin Exam: Dry, Warm Assessment and Plan - Assessment and Plan (Free Text) Plan: Polysubstance Abuse Psychiatry recs: Cogentine 1mg PO HS Gabapentine 300mg PO TID Hydroxyzine 25mg PO Q6 prn Ativan 1mg PO Q6 prn Risperidone 1mg PO HS UDS positive for benzos 1:1 for observation Patient was found taking more medications than she was being given in rehab. Apparently other people were bringing meds and alcohol into the facility. Patient denies. She actually says that they have been taking medications from her. Unsteady Gait and diffuse pain f/u Case managment for placement Patient can only ambulate with walker and needs assistance Resumed MISA medication Percocet 5/325 Q8H prn Started Oxycontin 20 mg PO Q12H [facility] Diabetes Accuchecks ACHS ISS Hypoglycemia protocol Hgba1c 10 lipid panel unremarkable UTI + nitrate and WBC Urine cultures grew E. coli. Limited in what can be given since patient refusing IV access. Macrobid 100 mg PO Q12 Prophylactic Measures SCDS VTE contraindicated due to thrombocytopenic Protonix 40mg PO daily PT/OT Diabetic diet Daughter Kasandra [phone] Disposition: Was unable to reach sang Slaughter today. Will need to follow up with social work team for discharge planning. Case DW Dr. Daija Moura PGY-1 <Mynor Choe H - Last Filed: 05/16/17 15:44> Objective - Vital Signs/Intake and Output Vital Signs (last 24 hours): Temp Pulse Resp BP Pulse Ox 98.4 F 81 20 118/77 95 05/16/17 07:38 05/16/17 07:38 05/16/17 07:38 05/16/17 07:38 05/16/17 07:38 Intake and Output: 05/16/17 05/16/17 06:59 18:59 Intake Total 360 Balance 360 - Medications Medications: Current Medications Benztropine Mesylate (Cogentin) 1 mg PO [facility] Last Admin: 05/15/17 21:21 Dose: 1 mg Dextrose (Dextrose 50% Inj) 0 ml IV STAT PRN; Protocol PRN Reason: Hypoglycemia Protocol Dextrose (Glutose 15) 0 gm PO ONCE PRN; Protocol PRN Reason: Hypoglycemia Protocol Divalproex Sodium (Katia Whipple) 250 mg PO [facility] Last Admin: 05/15/17 21:21 Dose: 250 mg Divalproex Sodium (Depakote Dr) 250 mg PO BID [facility] Last Admin: 05/16/17 10:04 Dose: 250 mg Gabapentin (Neurontin) 300 mg PO TID [facility] Last Admin: 05/16/17 14:44 Dose: 300 mg Glucagon (Glucagen Diagnostic Kit) 0 mg IM STAT PRN; Protocol PRN Reason: Hypoglycemia Protocol Hydroxyzine HCl (Atarax) 25 mg PO Q6 PRN PRN Reason: Agitation Last Admin: 05/14/17 09:51 Dose: 25 mg Dextrose (Dextrose 5% In Water 1000 Ml) 1,000 mls @ 0 mls/hr IV .Q0M PRN; Protocol; Per Protocol PRN Reason: Hypoglycemia Protocol Insulin Human Regular (Novolin R) 0 unit SC [facility] PRN Reason: Protocol Last Admin: 05/16/17 12:32 Dose: 4 unit Lorazepam (Ativan) 1 mg PO Q6 PRN PRN Reason: Anxiety Last Admin: 05/15/17 11:05 Dose: 1 mg Lorazepam (Ativan) 0.5 mg PO Q6 PRN PRN Reason: Anxiety Nitrofurantoin Macrocrystals (Macrobid) 100 mg PO Q12H [facility] Last Admin: 05/16/17 08:28 Dose: 100 mg Oxycodone HCl (Oxycontin Extended Release Tab) 20 mg PO Q12 [facility] Last Admin: 05/16/17 09:59 Dose: 20 mg Oxycodone/Acetaminophen (Percocet 5/325 Mg Tab) 1 tab PO Q8 PRN PRN Reason: Pain, severe (8-10) Stop: 05/18/17 08:56 Last Admin: 05/15/17 09:06 Dose: 1 tab Pantoprazole Sodium (Protonix Ec Tab) 40 mg PO DAILY [facility] Last Admin: 05/16/17 09:52 Dose: 40 mg Risperidone (Risperdal Tab) 1 mg PO HS [facility] Last Admin: 05/15/17 21:21 Dose: 1 mg Trazodone HCl (Desyrel) 50 mg PO HS [facility] Last Admin: 05/15/17 21:21 Dose: 50 mg - Labs Labs: 05/16/17 07:15 05/16/17 07:13 Attending/Attestation - Attestation I have personally seen and examined this patient.: Yes I have fully participated in the care of the patient.: Yes I have reviewed all pertinent clinical information, including history, physical exam and plan: Yes Notes (Text): 05/16/17 15:44 Medical attending: Patient was seen and examined by me, agree with the above note by certified medical technician. Today's the first day that I seen her where she was actually calm and answering questions appropriately. I later saw her participate with physical therapy as well. She reported that she was able to sleep overnight, she did not have any acute concerns overnight. However after some extended discussion she continued to say that she was unhappy with the previous place that she was at is trying to reach family member she gave the number to us. This family member was her daughter to discuss potentially renting an apartment.. The certified medical technician tried to call the number that she gave us however there was no answering machine available for them to be a message. Thank you so much, Mynor Choe
[2017-05-16 07:55] LABS: BASO % 0.4 % (0.0-2.0); EOS # 0.1 K/uL (0.0-0.7); EOS % 2.8 % (0.0-4.0); HEMOGLOBIN 11.3 g/dL (11.0-16.0); LYMPH # 1.5 K/uL (1.0-4.3); LYMPH % 30.6 % (20.0-40.0); MEAN CELL VOLUME 84.4 fL (81.0-99.0); MEAN CORPUSCULAR HEMOGLOBIN 29.1 pg (27.0-31.0); MEAN CORPUSCULAR HGB CONC 34.4 g/dL (33.0-37.0); MEAN PLATELET VOLUME 9.5 fL (7.2-11.7); MONO # 0.4 K/uL (0.0-0.8); MONO % 8.6 % (0.0-10.0); NEUT # 2.8 K/uL (1.8-7.0); NEUT % 57.6 % (50.0-75.0); NRBC % 0.1 % (0.0-2.0); RBC 3.9 Mil/uL (3.80-5.20); RED CELL DISTRIBUTION WIDTH 13.3 % (11.5-14.5); WHITE BLOOD COUNT 4.9 K/uL (4.8-10.8)
[2017-05-16 08:28] LABS: ALBUMIN 3.5 g/dL (3.5-5.0); ALT/SGPT 35 U/L (9-52); AST/SGOT 29 U/L (14-36); BLOOD UREA NITROGEN 18 mg/dL (7-17); CALCIUM 9.2 mg/dl (8.6-10.4); GFR AFRICAN-AMERICAN > 60; GFR NON-AFRICAN AMERICAN > 60; MAGNESIUM 1.7 mg/dL (1.6-2.3)
[2017-05-16] MEDS: (Novolin R) Insulin Human Regular 100 units/ml vial SC SCH ×4 (08:28→21:22)
[2017-05-16] MEDS: Pantoprazole 40 mg EC Tab PO SCH (09:52)
[2017-05-16] MEDS: oxyCODONE 20 mg ER Tab (oxyCONTIN) PO SCH ×2 (09:59→21:29)
[2017-05-16] MEDS ORDERED: Pneumococcal 23-Valent Vaccine IM ONE (10:00)
[2017-05-16] MEDS ORDERED: Influenza Vaccine 60 mcg/0.5 mL SYR (4YR UP) IM ONE (10:00)
[2017-05-16] MEDS: Divalproex 250 mg DR Tab PO SCH ×3 (10:04→21:30)
--- NOTE | 2017-05-16 13:56 | PCM.PYCHPN ---
Psychiatric Progress Note - Psychiatric Progress Note Patient seen today, length of contact: 15 min Patient Chief Complaint: I am feeling little better.' Problems Identified/Issues Discussed: Patient seen and evaluated, chart reviewed and discussed with the nurse. Patient reports some improvement in her irritability and agitation. Staff reports that pt is now taking her medications and she is less angry and less irritable. Supportive therapy and psychoeducation were given. Pt agreed to continue take her medications. Medication Change: No Medical Record Reviewed: Yes Mental Status Examination - Cognitive Function Orientation: Person, Place, Situation, Time Memory: Intact Attention: WNL Concentration: WNL Association: WNL Fund of Knowledge: WNL - Mood Mood: Anxious - Affect Affect: Constricted - Speech Speech: Soft - Formal Thought Process Formal Thought Process: Paranoia - Suicidal Ideation Suicidal Ideation: No - Homicidal Ideation Homicidal Ideation: No Goal/Treatment Plan - Goal/Treatment Plan Need for Continued Stay: Discharge may exacerbated symptoms Progress Toward Problem(s) and Goals/Treatment Plan: Bipolar disorder mixed severe with psychotic features Trazodone 50 mg by mouth daily at bedtime Neurontin 100 mg by mouth 3 times a day Depakote 250 mg PO BID Risperdal 1 mg PO QHS Trazodone 50 mg PO QHS Generalized anxiety disorder Sedative/hypnotic use disorder severe Ativan when necessary - Smoking Cessation Smoking Cessation Initiated: No
--- NOTE | 2017-05-16 14:05 | CARD ---
APPROVED REPORT EKG Measurement Heart [id number] <Conclusion> Normal sinus rhythm Normal ECG
--- NOTE | 2017-05-16 15:23 | PCM.PYCHPN ---
Psychiatric Progress Note - Psychiatric Progress Note Patient seen today, length of contact: 15 min Patient Chief Complaint: I am feeling very anxious'. Problems Identified/Issues Discussed: Patient seen and evaluated, chart reviewed and discussed with the nurse. Patient remained irritable and agitated, and continued to yell and curse at the staff. She still reports racing of thoughts and flight of ideas. She remained delusional and suspicious. She remained angry and irritable at the staff and refusing to take the medications. Supportive therapy and psychoeducation were given. Pt agreed to take the medications, after that. Medication Change: Yes (start depakote) Medical Record Reviewed: Yes Mental Status Examination - Cognitive Function Orientation: Person, Place, Situation, Time Memory: Intact Attention: WNL Concentration: Poor Association: Loose Fund of Knowledge: Poor - Mood Mood: Anxious - Affect Affect: Constricted - Speech Speech: Soft - Formal Thought Process Formal Thought Process: Paranoia, Loosening of associations - Suicidal Ideation Suicidal Ideation: No - Homicidal Ideation Homicidal Ideation: No Goal/Treatment Plan - Goal/Treatment Plan Need for Continued Stay: Discharge may exacerbated symptoms Progress Toward Problem(s) and Goals/Treatment Plan: Bipolar disorder mixed severe with psychotic features Trazodone 50 mg by mouth daily at bedtime Neurontin 300 mg by mouth 3 times a day Depakote 250 mg PO BID Generalized anxiety disorder Sedative/hypnotic use disorder severe Ativan when necessary - Smoking Cessation Smoking Cessation Initiated: No
--- NOTE | 2017-05-17 07:34 | CP.PCM.PN ---
<ZenybeataKel S - Last Filed: 05/17/17 15:12> Subjective - Date & Time of Evaluation Date of Evaluation: 05/17/17 Time of Evaluation: 09:10 - Subjective Subjective: Medicine progress note for Dr. Choe Patient seen and examined. Patient reports improved pain today. Patient has slept well last night and has no acute complaints at this time. Objective - Vital Signs/Intake and Output Vital Signs (last 24 hours): Temp Pulse Resp BP Pulse Ox 97.8 F 72 20 153/90 H 95 05/17/17 00:00 05/17/17 00:00 05/17/17 00:00 05/17/17 00:00 05/17/17 00:00 Intake and Output: 05/17/17 05/17/17 06:59 18:59 Intake Total 480 Balance 480 - Medications Medications: Current Medications Benztropine Mesylate (Cogentin) 1 mg PO HS [facility] Last Admin: 05/16/17 21:29 Dose: 1 mg Dextrose (Dextrose 50% Inj) 0 ml IV STAT PRN; Protocol PRN Reason: Hypoglycemia Protocol Dextrose (Glutose 15) 0 gm PO ONCE PRN; Protocol PRN Reason: Hypoglycemia Protocol Divalproex Sodium (Depakote Dr) 250 mg PO HS [facility] Last Admin: 05/16/17 21:30 Dose: 250 mg Divalproex Sodium (Depakote Dr) 250 mg PO BID [facility] Last Admin: 05/16/17 17:28 Dose: 250 mg Gabapentin (Neurontin) 300 mg PO TID [facility] Last Admin: 05/16/17 17:32 Dose: 300 mg Glucagon (Glucagen Diagnostic Kit) 0 mg IM STAT PRN; Protocol PRN Reason: Hypoglycemia Protocol Hydroxyzine HCl (Atarax) 25 mg PO Q6 PRN PRN Reason: Agitation Last Admin: 05/14/17 09:51 Dose: 25 mg Insulin Human Regular (Novolin R) 0 unit SC [facility] PRN Reason: Protocol Last Admin: 05/16/17 21:22 Dose: Not Given Lorazepam (Ativan) 1 mg PO Q6 PRN PRN Reason: Anxiety Last Admin: 05/15/17 11:05 Dose: 1 mg Lorazepam (Ativan) 0.5 mg PO Q6 PRN PRN Reason: Anxiety Nitrofurantoin Macrocrystals (Macrobid) 100 mg PO Q12H [facility] Last Admin: 05/16/17 21:22 Dose: 100 mg Oxycodone HCl (Oxycontin Extended Release Tab) 20 mg PO Q12 [facility] Last Admin: 05/16/17 21:29 Dose: 20 mg Oxycodone/Acetaminophen (Percocet 5/325 Mg Tab) 1 tab PO Q8 PRN PRN Reason: Pain, severe (8-10) Stop: 05/18/17 08:56 Last Admin: 05/15/17 09:06 Dose: 1 tab Pantoprazole Sodium (Protonix Ec Tab) 40 mg PO DAILY [facility] Last Admin: 05/16/17 09:52 Dose: 40 mg Risperidone (Risperdal Tab) 1 mg PO HS [facility] Last Admin: 05/16/17 21:30 Dose: 1 mg Trazodone HCl (Desyrel) 50 mg PO [facility] Last Admin: 05/16/17 21:29 Dose: 50 mg - Labs Labs: 05/16/17 07:15 05/16/17 07:13 - Additional Findings Additional findings: - Constitutional Appears: No Acute Distress - Head Exam Head Exam: ATRAUMATIC, NORMOCEPHALIC - Eye Exam Eye Exam: EOMI, Normal appearance - ENT Exam ENT Exam: Mucous Membranes Moist - Respiratory Exam Respiratory Exam: Clear to Ausculation Bilateral, NORMAL BREATHING PATTERN. absent: Rales, Rhonchi, Wheezes - Cardiovascular Exam Cardiovascular Exam: REGULAR RHYTHM, +S1, +S2 - GI/Abdominal Exam GI & Abdominal Exam: Soft, Normal Bowel Sounds. absent: Distended, Guarding, Tenderness - Extremities Exam Extremities Exam: absent: Pedal Edema Additional comments: venous stasis changes bilaterally - Neurological Exam Neurological Exam: Alert, Awake, Oriented x3 - Psychiatric Exam Psychiatric exam: Anxious - Skin Skin Exam: Dry, Warm Assessment and Plan - Assessment and Plan (Free Text) Plan: Polysubstance Abuse in the setting of Bipolar Disorder with psychotic features Psychiatry recs: Cogentin 1mg PO HS Gabapentin 300mg PO TID Hydroxyzine 25mg PO Q6 prn Ativan 1mg PO Q6 prn Ativan 0.5 mg PO Q6 prn Risperidone 1mg PO HS Depakote 250 mg PO BID Depakote 250 mg PO HS Atarax 25 mg PO Q6 prn UDS positive for benzos 1:1 for observation Patient was found taking more medications than she was being given in rehab. Apparently other people were bringing meds and alcohol into the facility. Patient denies. She actually says that they have been taking medications from her. Unsteady Gait and diffuse pain f/u Case managment for placement Patient can only ambulate with walker and needs assistance Resumed MISA medication Percocet 5/325 Q8H prn Started Oxycontin 20 mg PO Q12H [facility] Diabetes Accuchecks ACHS ISS Lantus 10 units HS Hypoglycemia protocol Hgba1c 10 lipid panel unremarkable UTI + nitrate and WBC Urine cultures grew E. coli. Limited in what can be given since patient refusing IV access. Macrobid 100 mg PO Q12 Prophylactic Measures SCDS VTE contraindicated due to thrombocytopenic Protonix 40mg PO daily PT/OT Diabetic diet Daughter Kasandra [phone] Disposition: Will need to follow up with social work team for discharge planning. Case DW Dr. Daija Moura PGY-1 <Mynor Choe H - Last Filed: 05/17/17 16:13> Objective - Vital Signs/Intake and Output Vital Signs (last 24 hours): Temp Pulse Resp BP Pulse Ox 98 F 73 20 118/77 96 05/17/17 08:03 05/17/17 08:03 05/17/17 08:03 05/17/17 08:03 05/17/17 08:03 Intake and Output: 05/17/17 05/17/17 06:59 18:59 Intake Total 480 600 Balance 480 600 - Medications Medications: Current Medications Benztropine Mesylate (Cogentin) 1 mg PO [facility] Last Admin: 05/16/17 21:29 Dose: 1 mg Dextrose (Dextrose 50% Inj) 0 ml IV STAT PRN; Protocol PRN Reason: Hypoglycemia Protocol Dextrose (Glutose 15) 0 gm PO ONCE PRN; Protocol PRN Reason: Hypoglycemia Protocol Divalproex Sodium (Depakote Dr) 250 mg PO [facility] Last Admin: 05/16/17 21:30 Dose: 250 mg Divalproex Sodium (Depakote Dr) 250 mg PO BID [facility] Last Admin: 05/17/17 10:25 Dose: 250 mg Gabapentin (Neurontin) 300 mg PO TID [facility] Last Admin: 05/17/17 14:22 Dose: 300 mg Glucagon (Glucagen Diagnostic Kit) 0 mg IM STAT PRN; Protocol PRN Reason: Hypoglycemia Protocol Hydroxyzine HCl (Atarax) 25 mg PO Q6 PRN PRN Reason: Agitation Last Admin: 05/14/17 09:51 Dose: 25 mg Insulin Glargine (Lantus) 10 unit SC HS [facility] Insulin Human Regular (Novolin R) 0 unit SC [facility] PRN Reason: Protocol Last Admin: 05/17/17 12:30 Dose: 6 unit Lorazepam (Ativan) 1 mg PO Q6 PRN PRN Reason: Anxiety Last Admin: 05/15/17 11:05 Dose: 1 mg Lorazepam (Ativan) 0.5 mg PO Q6 PRN PRN Reason: Anxiety Nitrofurantoin Macrocrystals (Macrobid) 100 mg PO Q12H [facility] Last Admin: 05/17/17 08:21 Dose: 100 mg Oxycodone HCl (Oxycontin Extended Release Tab) 20 mg PO Q12 [facility] Last Admin: 05/17/17 10:25 Dose: 20 mg Oxycodone/Acetaminophen (Percocet 5/325 Mg Tab) 1 tab PO Q8 PRN PRN Reason: Pain, severe (8-10) Stop: 05/18/17 08:56 Last Admin: 05/15/17 09:06 Dose: 1 tab Pantoprazole Sodium (Protonix Ec Tab) 40 mg PO DAILY [facility] Last Admin: 05/17/17 10:25 Dose: 40 mg Risperidone (Risperdal Tab) 1 mg PO [facility] Last Admin: 05/16/17 21:30 Dose: 1 mg Trazodone HCl (Desyrel) 50 mg PO [facility] Last Admin: 05/16/17 21:29 Dose: 50 mg - Labs Labs: 05/17/17 07:15 05/17/17 07:15 Attending/Attestation - Attestation I have personally seen and examined this patient.: Yes I have fully participated in the care of the patient.: Yes I have reviewed all pertinent clinical information, including history, physical exam and plan: Yes Notes (Text): Medical attending: Patient was seen and examined by me, agrees the above note by medical biller coder. The patient was at wrestling we saw her. She was not agitated. She was not anxious. We explained to her that we were not able to reach out to her family. She did not have any particular complaints today. Were still waiting on the caseworkers to hopefully be able to find her a rehabilitation to go to. The patient states that she wants her family members to find her apartment to go to however I don't know if this will be possible or not Thank you very much, Mynor Choe
[2017-05-17 07:45] LABS: ALBUMIN 3.4 g/dL (3.5-5.0); ALT/SGPT 35 U/L (9-52); AST/SGOT 28 U/L (14-36); BLOOD UREA NITROGEN 17 mg/dL (7-17); GFR AFRICAN-AMERICAN > 60; GFR NON-AFRICAN AMERICAN > 60; MAGNESIUM 1.7 mg/dL (1.6-2.3)
[2017-05-17 07:59] LABS: BASO % 0.3 % (0.0-2.0); EOS # 0.1 K/uL (0.0-0.7); HEMOGLOBIN 11.2 g/dL (11.0-16.0); LYMPH # 1.2 K/uL (1.0-4.3); LYMPH % 27.6 % (20.0-40.0); MEAN CELL VOLUME 84.6 fL (81.0-99.0); MEAN CORPUSCULAR HEMOGLOBIN 28.7 pg (27.0-31.0); MEAN CORPUSCULAR HGB CONC 33.9 g/dL (33.0-37.0); MEAN PLATELET VOLUME 10.1 fL (7.2-11.7); MONO # 0.4 K/uL (0.0-0.8); MONO % 8.4 % (0.0-10.0); NEUT # 2.6 K/uL (1.8-7.0); NEUT % 60.7 % (50.0-75.0); NRBC % 0.1 % (0.0-2.0); RBC 3.89 Mil/uL (3.80-5.20); RED CELL DISTRIBUTION WIDTH 13.1 % (11.5-14.5); WHITE BLOOD COUNT 4.2 K/uL (4.8-10.8)
[2017-05-17] MEDS: (Novolin R) Insulin Human Regular 100 units/ml vial SC SCH ×4 (08:21→22:07)
[2017-05-17] MEDS: Divalproex 250 mg DR Tab PO SCH ×3 (10:25→22:05)
[2017-05-17] MEDS: oxyCODONE 20 mg ER Tab (oxyCONTIN) PO SCH ×2 (10:25→22:10)
[2017-05-17] MEDS: Pantoprazole 40 mg EC Tab PO SCH (10:25)
[2017-05-17] MEDS: Oxycodone/Acetaminophen 5/325 mg Tab PO PRN (17:42)
[2017-05-17] MEDS: (Lantus) Insulin Glargine, Recombinant SC SCH (22:09)
--- NOTE | 2017-05-18 07:19 | CP.PCM.PN ---
<Kel Moura S - Last Filed: 05/18/17 13:50> Subjective - Date & Time of Evaluation Date of Evaluation: 05/18/17 Time of Evaluation: 07:10 - Subjective Subjective: Medicine progress note for Dr. Choe Patient seen and examined. Patient reports that her pain is controlled at this time. She is still trying to reach her family members. Patient seen ambulating around her room slowly with a rolling walker. Objective - Vital Signs/Intake and Output Vital Signs (last 24 hours): Temp Pulse Resp BP Pulse Ox 98.2 F 73 20 125/83 94 L 05/18/17 00:00 05/18/17 00:00 05/18/17 00:00 05/18/17 00:00 05/18/17 00:00 Intake and Output: 05/18/17 05/18/17 06:59 18:59 Intake Total 960 Balance 960 - Medications Medications: Current Medications Benztropine Mesylate (Cogentin) 1 mg PO HS [facility] Last Admin: 05/17/17 22:05 Dose: 1 mg Dextrose (Dextrose 50% Inj) 0 ml IV STAT PRN; Protocol PRN Reason: Hypoglycemia Protocol Dextrose (Glutose 15) 0 gm PO ONCE PRN; Protocol PRN Reason: Hypoglycemia Protocol Divalproex Sodium (Depakote Dr) 250 mg PO HS [facility] Last Admin: 05/17/17 22:05 Dose: 250 mg Divalproex Sodium (Depakote Dr) 250 mg PO BID [facility] Last Admin: 05/17/17 17:42 Dose: 250 mg Gabapentin (Neurontin) 300 mg PO TID [facility] Last Admin: 05/17/17 17:41 Dose: 300 mg Glucagon (Glucagen Diagnostic Kit) 0 mg IM STAT PRN; Protocol PRN Reason: Hypoglycemia Protocol Hydroxyzine HCl (Atarax) 25 mg PO Q6 PRN PRN Reason: Agitation Last Admin: 05/14/17 09:51 Dose: 25 mg Insulin Glargine (Lantus) 10 unit SC HS [facility] Last Admin: 05/17/17 22:09 Dose: 10 unit Insulin Human Regular (Novolin R) 0 unit SC [facility] PRN Reason: Protocol Last Admin: 05/17/17 22:07 Dose: Not Given Lorazepam (Ativan) 1 mg PO Q6 PRN PRN Reason: Anxiety Last Admin: 05/18/17 05:41 Dose: 1 mg Lorazepam (Ativan) 0.5 mg PO Q6 PRN PRN Reason: Anxiety Nitrofurantoin Macrocrystals (Macrobid) 100 mg PO Q12H [facility] Last Admin: 05/17/17 21:15 Dose: 100 mg Oxycodone HCl (Oxycontin Extended Release Tab) 20 mg PO Q12 [facility] Last Admin: 05/17/17 22:10 Dose: 20 mg Oxycodone/Acetaminophen (Percocet 5/325 Mg Tab) 1 tab PO Q8 PRN PRN Reason: Pain, severe (8-10) Stop: 05/18/17 08:56 Last Admin: 05/17/17 17:42 Dose: 1 tab Pantoprazole Sodium (Protonix Ec Tab) 40 mg PO DAILY [facility] Last Admin: 05/17/17 10:25 Dose: 40 mg Risperidone (Risperdal Tab) 1 mg PO [facility] Last Admin: 05/17/17 22:06 Dose: 1 mg Trazodone HCl (Desyrel) 50 mg PO [facility] Last Admin: 05/17/17 22:05 Dose: 50 mg - Labs Labs: 05/17/17 07:15 05/17/17 07:15 - Additional Findings Additional findings: - Constitutional Appears: No Acute Distress - Head Exam Head Exam: ATRAUMATIC, NORMOCEPHALIC - Eye Exam Eye Exam: EOMI, Normal appearance - ENT Exam ENT Exam: Mucous Membranes Moist - Respiratory Exam Respiratory Exam: Clear to Auscultation Bilateral, NORMAL BREATHING PATTERN. absent: Rales, Rhonchi, Wheezes - Cardiovascular Exam Cardiovascular Exam: REGULAR RHYTHM, +S1, +S2 - GI/Abdominal Exam GI & Abdominal Exam: Soft, Normal Bowel Sounds. absent: Distended, Guarding, Tenderness - Extremities Exam Extremities Exam: absent: Pedal Edema Additional comments: venous stasis changes bilaterally - Neurological Exam Neurological Exam: Alert, Awake, Oriented x3 - Psychiatric Exam Psychiatric exam: Anxious - Skin Skin Exam: Dry, Warm Assessment and Plan - Assessment and Plan (Free Text) Plan: Polysubstance Abuse in the setting of Bipolar Disorder with psychotic features Psychiatry recs: Cogentin 1mg PO HS Gabapentin 300mg PO TID Hydroxyzine 25mg PO Q6 prn Ativan 1mg PO Q6 prn Ativan 0.5 mg PO Q6 prn Risperidone 1mg PO HS Depakote 250 mg PO BID Depakote 250 mg PO HS Atarax 25 mg PO Q6 prn UDS positive for benzos 1:1 for observation Patient was found taking more medications than she was being given in rehab. Apparently other people were bringing meds and alcohol into the facility. Patient denies. She actually says that they have been taking medications from her. Unsteady Gait and diffuse pain f/u Case managment for placement Patient can only ambulate with walker and needs assistance Resumed MISA medication Percocet 5/325 Q8H prn Started Oxycontin 20 mg PO Q12H [facility] Diabetes Accuchecks ACHS ISS Lantus 10 units HS Hypoglycemia protocol Hgba1c 10 lipid panel unremarkable UTI + nitrate and WBC Urine cultures grew E. coli. Limited in what can be given since patient refusing IV access. Macrobid 100 mg PO Q12 Prophylactic Measures SCDS VTE contraindicated due to thrombocytopenic Protonix 40mg PO daily PT/OT Diabetic diet Daughter Kasandra [phone] Disposition: Will need to follow up with social work team for discharge planning. Unfortunately, it seems that the numbers on file for the family members may be incorrect as it is likely that the family does not want to be involved with the patient. Case DW Dr. Daija Moura PGY-1 <Mynor Choe - Last Filed: 05/18/17 17:56> Objective - Vital Signs/Intake and Output Vital Signs (last 24 hours): Temp Pulse Resp BP Pulse Ox 97.6 F 81 20 118/71 93 L 05/18/17 08:00 05/18/17 08:00 05/18/17 08:00 05/18/17 08:00 05/18/17 08:00 Intake and Output: 05/18/17 05/18/17 06:59 18:59 Intake Total 960 350 Balance 960 350 - Medications Medications: Current Medications Benztropine Mesylate (Cogentin) 1 mg PO HS [facility] Last Admin: 05/17/17 22:05 Dose: 1 mg Dextrose (Dextrose 50% Inj) 0 ml IV STAT PRN; Protocol PRN Reason: Hypoglycemia Protocol Dextrose (Glutose 15) 0 gm PO ONCE PRN; Protocol PRN Reason: Hypoglycemia Protocol Divalproex Sodium (Katia Whipple) 250 mg PO [facility] Last Admin: 05/17/17 22:05 Dose: 250 mg Divalproex Sodium (Depakote Dr) 250 mg PO BID [facility] Last Admin: 05/18/17 09:30 Dose: 250 mg Gabapentin (Neurontin) 300 mg PO TID [facility] Last Admin: 05/18/17 13:30 Dose: 300 mg Glucagon (Glucagen Diagnostic Kit) 0 mg IM STAT PRN; Protocol PRN Reason: Hypoglycemia Protocol Hydroxyzine HCl (Atarax) 25 mg PO Q6 PRN PRN Reason: Agitation Last Admin: 05/14/17 09:51 Dose: 25 mg Insulin Glargine (Lantus) 10 unit SC [facility] Last Admin: 05/17/17 22:09 Dose: 10 unit Insulin Human Regular (Novolin R) 0 unit SC [facility] PRN Reason: Protocol Last Admin: 05/18/17 12:07 Dose: 4 unit Lorazepam (Ativan) 1 mg PO Q6 PRN PRN Reason: Anxiety Last Admin: 05/18/17 05:41 Dose: 1 mg Lorazepam (Ativan) 0.5 mg PO Q6 PRN PRN Reason: Anxiety Nitrofurantoin Macrocrystals (Macrobid) 100 mg PO Q12H [facility] Last Admin: 05/18/17 09:29 Dose: 100 mg Oxycodone HCl (Oxycontin Extended Release Tab) 20 mg PO Q12 [facility] Last Admin: 05/18/17 09:30 Dose: 20 mg Pantoprazole Sodium (Protonix Ec Tab) 40 mg PO DAILY [facility] Last Admin: 05/18/17 09:29 Dose: 40 mg Risperidone (Risperdal Tab) 1 mg PO [facility] Last Admin: 05/17/17 22:06 Dose: 1 mg Trazodone HCl (Desyrel) 50 mg PO [facility] Last Admin: 05/17/17 22:05 Dose: 50 mg - Labs Labs: 05/18/17 07:54 05/18/17 07:13 Attending/Attestation - Attestation I have personally seen and examined this patient.: Yes I have fully participated in the care of the patient.: Yes I have reviewed all pertinent clinical information, including history, physical exam and plan: Yes Notes (Text): 05/18/17 17:56 Medical attending: Patient was seen and examined by me with the resident. Agree with the above note by the resident At this moment I'm not entirely sure what our plan is. We've been trying to call some the numbers listed in the chart. And unfortunately we haven't been able to get a proper call back or been able to leave a message. I explained this to the patient in person that the caseworkers as well as the medical residents have been trying to call however we have not had any further information. thank you Mynor
[2017-05-18 07:58] LABS: ALBUMIN 4.1 g/dL (3.5-5.0); ALT/SGPT 43 U/L (9-52); AST/SGOT 39 U/L (14-36); BLOOD UREA NITROGEN 19 mg/dL (7-17); CALCIUM 9.5 mg/dl (8.6-10.4); GFR AFRICAN-AMERICAN > 60; GFR NON-AFRICAN AMERICAN > 60; MAGNESIUM 1.7 mg/dL (1.6-2.3)
[2017-05-18 08:02] LABS: BASO % 0.4 % (0.0-2.0); EOS # 0.1 K/uL (0.0-0.7); EOS % 2.3 % (0.0-4.0); HEMOGLOBIN 11.7 g/dL (11.0-16.0); LYMPH # 1.6 K/uL (1.0-4.3); LYMPH % 31.1 % (20.0-40.0); MEAN CELL VOLUME 84.6 fL (81.0-99.0); MEAN CORPUSCULAR HEMOGLOBIN 29.1 pg (27.0-31.0); MEAN CORPUSCULAR HGB CONC 34.3 g/dL (33.0-37.0); MEAN PLATELET VOLUME 10.2 fL (7.2-11.7); MONO # 0.4 K/uL (0.0-0.8); MONO % 8.3 % (0.0-10.0); NEUT % 57.9 % (50.0-75.0); NRBC % 0.1 % (0.0-2.0); RBC 4.01 Mil/uL (3.80-5.20); RED CELL DISTRIBUTION WIDTH 13.5 % (11.5-14.5); WHITE BLOOD COUNT 5.1 K/uL (4.8-10.8)
[2017-05-18] MEDS: (Novolin R) Insulin Human Regular 100 units/ml vial SC SCH ×4 (08:24→21:46)
[2017-05-18] MEDS: Pantoprazole 40 mg EC Tab PO SCH (09:29)
[2017-05-18] MEDS: oxyCODONE 20 mg ER Tab (oxyCONTIN) PO SCH ×2 (09:30→21:59)
[2017-05-18] MEDS: Divalproex 250 mg DR Tab PO SCH ×3 (09:30→21:40)
[2017-05-18] MEDS: (Lantus) Insulin Glargine, Recombinant SC SCH (21:52)
--- NOTE | 2017-05-19 05:45 | CP.PCM.PN ---
<Jayant Louie - Last Filed: 05/19/17 05:46> Subjective - Date & Time of Evaluation Date of Evaluation: 05/19/17 Time of Evaluation: 05:44 - Subjective Subjective: Medicine progress note for Dr. Choe Patient seen and examined. Patient reports that her pain is controlled at this time. She is still trying to reach her family members. Patient resting comfortably in no acute distress. Objective - Vital Signs/Intake and Output Vital Signs (last 24 hours): Temp Pulse Resp BP Pulse Ox 98.2 F 78 20 138/63 94 L 05/19/17 00:00 05/19/17 00:00 05/19/17 00:00 05/19/17 00:00 05/19/17 00:00 Intake and Output: 05/18/17 05/19/17 18:59 06:59 Intake Total 350 450 Balance 350 450 - Medications Medications: Current Medications Benztropine Mesylate (Cogentin) 1 mg PO HS [facility] Last Admin: 05/18/17 21:40 Dose: 1 mg Dextrose (Dextrose 50% Inj) 0 ml IV STAT PRN; Protocol PRN Reason: Hypoglycemia Protocol Dextrose (Glutose 15) 0 gm PO ONCE PRN; Protocol PRN Reason: Hypoglycemia Protocol Divalproex Sodium (Depakote Dr) 250 mg PO HS [facility] Last Admin: 05/18/17 21:40 Dose: 250 mg Divalproex Sodium (Depakote Dr) 250 mg PO BID [facility] Last Admin: 05/18/17 18:17 Dose: 250 mg Gabapentin (Neurontin) 300 mg PO TID [facility] Last Admin: 05/18/17 18:16 Dose: 300 mg Glucagon (Glucagen Diagnostic Kit) 0 mg IM STAT PRN; Protocol PRN Reason: Hypoglycemia Protocol Hydroxyzine HCl (Atarax) 25 mg PO Q6 PRN PRN Reason: Agitation Last Admin: 05/14/17 09:51 Dose: 25 mg Insulin Glargine (Lantus) 10 unit SC [facility] Last Admin: 05/18/17 21:52 Dose: 10 unit Insulin Human Regular (Novolin R) 0 unit SC [facility] PRN Reason: Protocol Last Admin: 05/18/17 21:46 Dose: Not Given Lorazepam (Ativan) 1 mg PO Q6 PRN PRN Reason: Anxiety Last Admin: 05/19/17 01:48 Dose: 1 mg Lorazepam (Ativan) 0.5 mg PO Q6 PRN PRN Reason: Anxiety Nitrofurantoin Macrocrystals (Macrobid) 100 mg PO Q12H [facility] Last Admin: 05/18/17 21:05 Dose: 100 mg Oxycodone HCl (Oxycontin Extended Release Tab) 20 mg PO Q12 [facility] Last Admin: 05/18/17 21:59 Dose: 20 mg Pantoprazole Sodium (Protonix Ec Tab) 40 mg PO DAILY [facility] Last Admin: 05/18/17 09:29 Dose: 40 mg Risperidone (Risperdal Tab) 1 mg PO [facility] Last Admin: 05/18/17 21:42 Dose: 1 mg Trazodone HCl (Desyrel) 50 mg PO [facility] Last Admin: 05/18/17 21:49 Dose: 50 mg - Labs Labs: 05/18/17 07:54 05/18/17 07:13 - Head Exam Head Exam: ATRAUMATIC, NORMAL INSPECTION, NORMOCEPHALIC - Eye Exam Eye Exam: EOMI, Normal appearance, PERRL. absent: Periorbital tenderness Pupil Exam: NORMAL ACCOMODATION, PERRL. absent: Irregular, Unequal - ENT Exam ENT Exam: Mucous Membranes Moist, Normal Exam, Normal Oropharynx - Neck Exam Neck Exam: Normal Inspection. absent: Lymphadenopathy, Thyromegaly - Respiratory Exam Respiratory Exam: Clear to Ausculation Bilateral, NORMAL BREATHING PATTERN. absent: Chest Wall Tenderness, Prolonged Expiratory Phase, Respiratory Distress - Cardiovascular Exam Cardiovascular Exam: REGULAR RHYTHM, +S1, +S2. absent: Murmur - GI/Abdominal Exam GI & Abdominal Exam: Soft, Normal Bowel Sounds. absent: Rigid, Hyperactive Bowel Sounds - Extremities Exam Extremities Exam: Full ROM, Normal Inspection. absent: Joint Swelling, Pedal Edema, Tenderness - Back Exam Back Exam: NORMAL INSPECTION. absent: CVA tenderness (L), CVA tenderness (R), paraspinal tenderness - Neurological Exam Neurological Exam: Alert, Awake, CN II-XII Intact - Psychiatric Exam Psychiatric exam: Normal Affect, Normal Mood - Skin Skin Exam: Dry, Intact Assessment and Plan - Assessment and Plan (Free Text) Plan: Polysubstance Abuse in the setting of Bipolar Disorder with psychotic features Psychiatry recs: Cogentin 1mg PO HS Gabapentin 300mg PO TID Hydroxyzine 25mg PO Q6 prn Ativan 1mg PO Q6 prn Ativan 0.5 mg PO Q6 prn Risperidone 1mg PO HS Depakote 250 mg PO BID Depakote 250 mg PO HS Atarax 25 mg PO Q6 prn UDS positive for benzos 1:1 for observation Patient was found taking more medications than she was being given in rehab. Apparently other people were bringing meds and alcohol into the facility. Patient denies. She actually says that they have been taking medications from her. Unsteady Gait and diffuse pain f/u Case managment for placement Patient can only ambulate with walker and needs assistance Resumed MISA medication Percocet 5/325 Q8H prn Continue Oxycontin 20 mg PO Q12H [facility] Diabetes Accuchecks ACHS ISS Lantus 10 units HS Hypoglycemia protocol Hgba1c 10 lipid panel unremarkable UTI + nitrate and WBC Urine cultures grew E. coli. Limited in what can be given since patient refusing IV access. Macrobid 100 mg PO Q12 Prophylactic Measures SCDS VTE contraindicated due to thrombocytopenic Protonix 40mg PO daily PT/OT Diabetic diet Daughter Kasandra [phone] Disposition: Will need to follow up with social work team for discharge planning. Unfortunately, it seems that the numbers on file for the family members may be incorrect as it is likely that the family does not want to be involved with the patient. Case DW Dr. Choe <Mynor Choe - Last Filed: 05/19/17 13:05> Objective - Vital Signs/Intake and Output Vital Signs (last 24 hours): Temp Pulse Resp BP Pulse Ox 98.2 F 87 20 146/83 95 05/19/17 08:53 05/19/17 08:53 05/19/17 08:53 05/19/17 08:53 05/19/17 08:53 Intake and Output: 05/19/17 05/19/17 06:59 18:59 Intake Total 450 360 Balance 450 360 - Medications Medications: Current Medications Benztropine Mesylate (Cogentin) 1 mg PO HS [facility] Last Admin: 05/18/17 21:40 Dose: 1 mg Dextrose (Dextrose 50% Inj) 0 ml IV STAT PRN; Protocol PRN Reason: Hypoglycemia Protocol Dextrose (Glutose 15) 0 gm PO ONCE PRN; Protocol PRN Reason: Hypoglycemia Protocol Divalproex Sodium (Depakote Dr) 250 mg PO [facility] Last Admin: 05/18/17 21:40 Dose: 250 mg Divalproex Sodium (Depakote Dr) 250 mg PO BID [facility] Last Admin: 05/19/17 09:58 Dose: 250 mg Gabapentin (Neurontin) 300 mg PO TID [facility] Last Admin: 05/19/17 09:58 Dose: 300 mg Glucagon (Glucagen Diagnostic Kit) 0 mg IM STAT PRN; Protocol PRN Reason: Hypoglycemia Protocol Hydroxyzine HCl (Atarax) 25 mg PO Q6 PRN PRN Reason: Agitation Last Admin: 05/14/17 09:51 Dose: 25 mg Insulin Glargine (Lantus) 15 unit SC HS [facility] Insulin Human Regular (Novolin R) 0 unit SC [facility] PRN Reason: Protocol Last Admin: 05/19/17 08:30 Dose: 4 unit Lorazepam (Ativan) 1 mg PO Q6 PRN PRN Reason: Anxiety Last Admin: 05/19/17 01:48 Dose: 1 mg Lorazepam (Ativan) 0.5 mg PO Q6 PRN PRN Reason: Anxiety Nitrofurantoin Macrocrystals (Macrobid) 100 mg PO Q12H [facility] Last Admin: 05/19/17 09:45 Dose: 100 mg Pantoprazole Sodium (Protonix Ec Tab) 40 mg PO DAILY [facility] Last Admin: 05/19/17 09:57 Dose: 40 mg Risperidone (Risperdal Tab) 1 mg PO [facility] Last Admin: 05/18/17 21:42 Dose: 1 mg Trazodone HCl (Desyrel) 50 mg PO [facility] Last Admin: 05/18/17 21:49 Dose: 50 mg - Labs Labs: 05/18/17 07:54 05/18/17 07:13 Attending/Attestation - Attestation I have personally seen and examined this patient.: Yes I have fully participated in the care of the patient.: Yes I have reviewed all pertinent clinical information, including history, physical exam and plan: Yes Notes (Text): 05/19/17 13:04 Medical attending: Patient was seen and examined by me. Agree with the above note by the medical device sales consultant Today she looked very depressed. I was not able to have a regular conversation with her - she was able to say she was so depressed that she could not reach family members. We will try calling later again In the mean time we are holding off on oxycondone XR and holding the trazadone, and holding ativan for the time being thank you Mynor Choe
[2017-05-19] MEDS: (Novolin R) Insulin Human Regular 100 units/ml vial SC SCH ×4 (08:30→21:49)
[2017-05-19] MEDS: oxyCODONE 20 mg ER Tab (oxyCONTIN) PO SCH (09:56)
[2017-05-19] MEDS: Pantoprazole 40 mg EC Tab PO SCH (09:57)
[2017-05-19] MEDS: Divalproex 250 mg DR Tab PO SCH ×3 (09:58→21:48)
[2017-05-19] MEDS: (Lantus) Insulin Glargine, Recombinant SC SCH (21:50)
--- NOTE | 2017-05-20 00:43 | CP.PCM.PN ---
<Jayant Louie - Last Filed: 05/20/17 00:44> Subjective - Date & Time of Evaluation Date of Evaluation: 05/20/17 Time of Evaluation: 06:43 - Subjective Subjective: Medicine progress note for Dr. Choe Patient seen and examined. Patient reports that her pain is controlled at this time. She is still trying to reach her family members. Patient resting comfortably in no acute distress. Objective - Vital Signs/Intake and Output Vital Signs (last 24 hours): Temp Pulse Resp BP Pulse Ox 97.9 F 80 20 123/72 95 05/19/17 16:10 05/19/17 16:10 05/19/17 16:10 05/19/17 16:10 05/19/17 16:10 Intake and Output: 05/19/17 05/20/17 18:59 06:59 Intake Total 760 100 Output Total 300 Balance 760 -200 - Medications Medications: Current Medications Benztropine Mesylate (Cogentin) 1 mg PO HS [facility] Last Admin: 05/19/17 21:48 Dose: 1 mg Dextrose (Dextrose 50% Inj) 0 ml IV STAT PRN; Protocol PRN Reason: Hypoglycemia Protocol Dextrose (Glutose 15) 0 gm PO ONCE PRN; Protocol PRN Reason: Hypoglycemia Protocol Divalproex Sodium (Depakote Dr) 250 mg PO [facility] Last Admin: 05/19/17 21:48 Dose: 250 mg Divalproex Sodium (Depakote Dr) 250 mg PO BID [facility] Last Admin: 05/19/17 17:37 Dose: 250 mg Gabapentin (Neurontin) 100 mg PO TID [facility] Glucagon (Glucagen Diagnostic Kit) 0 mg IM STAT PRN; Protocol PRN Reason: Hypoglycemia Protocol Haloperidol (Haldol) 2 mg PO Q1H PRN PRN Reason: agitation 4x/24h Hydroxyzine HCl (Atarax) 25 mg PO Q6 PRN PRN Reason: Agitation Last Admin: 05/14/17 09:51 Dose: 25 mg Insulin Glargine (Lantus) 15 unit SC HS [facility] Last Admin: 05/19/17 21:50 Dose: 15 unit Insulin Human Regular (Novolin R) 0 unit SC [facility] PRN Reason: Protocol Last Admin: 05/19/17 21:49 Dose: Not Given Nitrofurantoin Macrocrystals (Macrobid) 100 mg PO Q12H [facility] Last Admin: 05/19/17 21:00 Dose: 100 mg Pantoprazole Sodium (Protonix Ec Tab) 40 mg PO DAILY [facility] Last Admin: 05/19/17 09:57 Dose: 40 mg Risperidone (Risperdal Tab) 1 mg PO HS [facility] Last Admin: 05/19/17 21:48 Dose: 1 mg Trazodone HCl (Desyrel) 50 mg PO HS [facility] Last Admin: 05/18/17 21:49 Dose: 50 mg - Labs Labs: 05/18/17 07:54 05/18/17 07:13 - Head Exam Head Exam: ATRAUMATIC, NORMAL INSPECTION, NORMOCEPHALIC - Eye Exam Eye Exam: EOMI, Normal appearance, PERRL. absent: Periorbital tenderness Pupil Exam: NORMAL ACCOMODATION, PERRL. absent: Irregular, Unequal - ENT Exam ENT Exam: Mucous Membranes Moist, Normal Oropharynx - Neck Exam Neck Exam: Normal Inspection. absent: Lymphadenopathy, Thyromegaly - Respiratory Exam Respiratory Exam: Clear to Ausculation Bilateral, NORMAL BREATHING PATTERN. absent: Chest Wall Tenderness, Prolonged Expiratory Phase, Respiratory Distress - Cardiovascular Exam Cardiovascular Exam: REGULAR RHYTHM, +S1, +S2 - GI/Abdominal Exam GI & Abdominal Exam: Soft, Normal Bowel Sounds. absent: Rigid, Hyperactive Bowel Sounds - Extremities Exam Extremities Exam: Full ROM. absent: Joint Swelling, Pedal Edema, Tenderness - Back Exam Back Exam: NORMAL INSPECTION. absent: CVA tenderness (L), CVA tenderness (R), paraspinal tenderness - Neurological Exam Neurological Exam: Alert, Awake, CN II-XII Intact - Psychiatric Exam Psychiatric exam: Normal Affect, Normal Mood - Skin Skin Exam: Dry, Intact Assessment and Plan - Assessment and Plan (Free Text) Plan: Polysubstance Abuse in the setting of Bipolar Disorder with psychotic features Psychiatry recs: Cogentin 1mg PO HS Gabapentin 300mg PO TID Hydroxyzine 25mg PO Q6 prn Ativan 1mg PO Q6 prn Ativan 0.5 mg PO Q6 prn Risperidone 1mg PO HS Depakote 250 mg PO BID Depakote 250 mg PO HS Atarax 25 mg PO Q6 prn UDS positive for benzos 1:1 for observation Patient was found taking more medications than she was being given in rehab. Apparently other people were bringing meds and alcohol into the facility. Patient denies. She actually says that they have been taking medications from her. Unsteady Gait and diffuse pain f/u Case managment for placement Patient can only ambulate with walker and needs assistance Resumed MISA medication Percocet 5/325 Q8H prn Continue Oxycontin 20 mg PO Q12H [facility] Diabetes Accuchecks ACHS ISS Lantus 10 units HS Hypoglycemia protocol Hgba1c 10 lipid panel unremarkable UTI + nitrate and WBC Urine cultures grew E. coli. Limited in what can be given since patient refusing IV access. Macrobid 100 mg PO Q12 Prophylactic Measures SCDS VTE contraindicated due to thrombocytopenic Protonix 40mg PO daily PT/OT Diabetic diet Daughter Kasandra [phone] Disposition: Will need to follow up with social work team for discharge planning. Unfortunately, it seems that the numbers on file for the family members may be incorrect as it is likely that the family does not want to be involved with the patient. <Mynor Choe H - Last Filed: 05/20/17 10:05> Objective - Vital Signs/Intake and Output Vital Signs (last 24 hours): Temp Pulse Resp BP Pulse Ox 98.6 F 72 20 144/84 98 05/20/17 08:00 05/20/17 08:00 05/20/17 08:00 05/20/17 08:00 05/20/17 08:00 Intake and Output: 05/20/17 05/20/17 06:59 18:59 Intake Total 340 Output Total 600 Balance -260 - Medications Medications: Current Medications Benztropine Mesylate (Cogentin) 1 mg PO [facility] Last Admin: 05/19/17 21:48 Dose: 1 mg Dextrose (Dextrose 50% Inj) 0 ml IV STAT PRN; Protocol PRN Reason: Hypoglycemia Protocol Dextrose (Glutose 15) 0 gm PO ONCE PRN; Protocol PRN Reason: Hypoglycemia Protocol Divalproex Sodium (Depakote Dr) 250 mg PO [facility] Last Admin: 05/19/17 21:48 Dose: 250 mg Divalproex Sodium (Depakote Dr) 250 mg PO BID [facility] Last Admin: 05/20/17 09:16 Dose: 250 mg Gabapentin (Neurontin) 100 mg PO TID [facility] Last Admin: 05/20/17 09:14 Dose: 100 mg Glucagon (Glucagen Diagnostic Kit) 0 mg IM STAT PRN; Protocol PRN Reason: Hypoglycemia Protocol Haloperidol (Haldol) 2 mg PO Q1H PRN PRN Reason: agitation 4x/24h Hydroxyzine HCl (Atarax) 25 mg PO Q6 PRN PRN Reason: Agitation Last Admin: 05/20/17 09:17 Dose: 25 mg Insulin Glargine (Lantus) 15 unit SC HS [facility] Last Admin: 05/19/17 21:50 Dose: 15 unit Insulin Human Regular (Novolin R) 0 unit SC [facility] PRN Reason: Protocol Last Admin: 05/20/17 08:30 Dose: 3 unit Nitrofurantoin Macrocrystals (Macrobid) 100 mg PO Q12H [facility] Last Admin: 05/20/17 08:31 Dose: 100 mg Pantoprazole Sodium (Protonix Ec Tab) 40 mg PO DAILY [facility] Last Admin: 05/20/17 09:13 Dose: 40 mg Risperidone (Risperdal Tab) 1 mg PO [facility] Last Admin: 05/19/17 21:48 Dose: 1 mg Trazodone HCl (Desyrel) 50 mg PO [facility] Last Admin: 05/18/17 21:49 Dose: 50 mg - Labs Labs: 05/18/17 07:54 05/18/17 07:13 Attending/Attestation - Attestation I have personally seen and examined this patient.: Yes I have fully participated in the care of the patient.: Yes I have reviewed all pertinent clinical information, including history, physical exam and plan: Yes Notes (Text): Medical attending: Patient was seen and examined by me. Agree with the above note by the resident Our meeting was intially calm and she appeared well - and then she mentioned she was not able to contact family members and started crying There are two numbers listed that I tried to call but unfourtunately nothing went through. I said to the patient I would try calling again and I did however these might not be functioning numbers thank you Mynor Choe
[2017-05-20] MEDS: (Novolin R) Insulin Human Regular 100 units/ml vial SC SCH ×3 (08:30→17:54)
[2017-05-20] MEDS: Pantoprazole 40 mg EC Tab PO SCH (09:13)
[2017-05-20] MEDS: Divalproex 250 mg DR Tab PO SCH ×3 (09:16→21:27)
--- NOTE | 2017-05-20 12:07 | PCM.PYCHPN ---
Psychiatric Progress Note - Psychiatric Progress Note Patient seen today, length of contact: 15 min Patient Chief Complaint: No c/c. Seen as a follow up. Problems Identified/Issues Discussed: Seen, chart reviewed, case discussed Not as confused but lethargic She wouldn't cooperate for a full interview or assessment but seems like baseline and not acutely sick Support given Dr. Ryder to follow if needed. Medication Change: No Medical Record Reviewed: Yes Mental Status Examination - Cognitive Function Orientation: Person, Place, Situation, Time Memory: Impaired Attention: Poor Concentration: Poor Association: WNL Fund of Knowledge: WNL - Mood Mood: Anxious - Affect Affect: Constricted - Speech Speech: Soft - Formal Thought Process Formal Thought Process: No Impairment (difficult to assess) - Suicidal Ideation Suicidal Ideation: No - Homicidal Ideation Homicidal Ideation: No Goal/Treatment Plan - Goal/Treatment Plan Need for Continued Stay: Other (medical clearance) Progress Toward Problem(s) and Goals/Treatment Plan: Continue meds Do NOT use benzos to avoid confusion Support and psychoed
--- NOTE | 2017-05-20 12:07 | PCM.PYCHPN ---
Psychiatric Progress Note - Psychiatric Progress Note Patient seen today, length of contact: 15 min Patient Chief Complaint: I am feeling little better.' Problems Identified/Issues Discussed: Patient seen and evaluated, chart reviewed and discussed with the nurse. As per the staff pt was found little disorganized and disoriented last night and she was pacing back and forth in her room and in the hallways. However, she is now taking her medications and she is less angry and less irritable. Supportive therapy and psychoeducation were given. Medication Change: No Medical Record Reviewed: Yes Mental Status Examination - Cognitive Function Orientation: Person, Place, Situation, Time Memory: Intact Attention: WNL Concentration: WNL Association: Loose Fund of Knowledge: WNL - Mood Mood: Anxious - Affect Affect: Constricted - Speech Speech: Soft - Formal Thought Process Formal Thought Process: Loosening of associations - Suicidal Ideation Suicidal Ideation: No - Homicidal Ideation Homicidal Ideation: No Goal/Treatment Plan - Goal/Treatment Plan Need for Continued Stay: Discharge may exacerbated symptoms Progress Toward Problem(s) and Goals/Treatment Plan: Bipolar disorder mixed severe with psychotic features Trazodone 50 mg by mouth daily at bedtime Neurontin 100 mg by mouth 3 times a day Depakote 250 mg PO BID Risperdal 1 mg PO QHS Trazodone 50 mg PO QHS Generalized anxiety disorder Sedative/hypnotic use disorder severe Ativan when necessary - Smoking Cessation Smoking Cessation Initiated: No
[2017-05-20 12:45] LABS: SQUAMOUS EPITHIAL 7 /hpf (0-5); URINE BACTERIA RARE (<OCC); URINE BILIRUBIN NEGATIVE (NEGATIVE); URINE BLOOD 1+ (NEGATIVE); URINE CLARITY Clear (Clear); URINE COLOR Yellow (YELLOW); URINE GLUCOSE (UA) 1+ mg/dL (Normal); URINE LEUKOCYTE ESTERASE NEG Leu/uL (Negative); URINE NITRATE NEGATIVE (NEGATIVE); URINE PROTEIN NEGATIVE (NEGATIVE); URINE UROBILINOGEN NORMAL mg/dL (0.2-1.0)
[2017-05-20] MEDS: (Lantus) Insulin Glargine, Recombinant SC SCH (21:37)
[2017-05-21] MEDS: (Novolin R) Insulin Human Regular 100 units/ml vial SC SCH ×5 (07:56→22:04)
[2017-05-21] MEDS: Pantoprazole 40 mg EC Tab PO SCH (10:07)
[2017-05-21] MEDS: Divalproex 250 mg DR Tab PO SCH ×3 (10:08→22:01)
--- NOTE | 2017-05-21 14:55 | CP.PCM.PN ---
<Luz Strong - Last Filed: 05/21/17 14:53> Subjective - Date & Time of Evaluation Date of Evaluation: 05/21/17 Time of Evaluation: 09:00 - Subjective Subjective: Medicine Note for Hospitalist Service- Dr. Miner Patient was seen and examined at bedside. Reports she is doing well, her pain is well controlled. Denied fever, chills, headache, chest pain, abdominal pain, n/v/d/c, or urinary symptoms. Objective - Vital Signs/Intake and Output Vital Signs (last 24 hours): Temp Pulse Resp BP Pulse Ox 99 F 74 20 150/89 93 L 05/20/17 16:15 05/20/17 16:15 05/20/17 16:15 05/20/17 16:15 05/20/17 16:15 Intake and Output: 05/21/17 05/21/17 06:59 18:59 Intake Total 700 Output Total 850 Balance -150 - Medications Medications: Current Medications Benztropine Mesylate (Cogentin) 1 mg PO [facility] Last Admin: 05/20/17 21:27 Dose: 1 mg Dextrose (Dextrose 50% Inj) 0 ml IV STAT PRN; Protocol PRN Reason: Hypoglycemia Protocol Dextrose (Glutose 15) 0 gm PO ONCE PRN; Protocol PRN Reason: Hypoglycemia Protocol Divalproex Sodium (Depakote Dr) 250 mg PO [facility] Last Admin: 05/20/17 21:27 Dose: 250 mg Divalproex Sodium (Depakote Dr) 250 mg PO BID [facility] Last Admin: 05/21/17 10:08 Dose: 250 mg Gabapentin (Neurontin) 100 mg PO TID [facility] Last Admin: 05/21/17 13:31 Dose: 100 mg Glucagon (Glucagen Diagnostic Kit) 0 mg IM STAT PRN; Protocol PRN Reason: Hypoglycemia Protocol Haloperidol (Haldol) 2 mg PO Q1H PRN PRN Reason: agitation 4x/24h Hydroxyzine HCl (Atarax) 25 mg PO Q6 PRN PRN Reason: Agitation Last Admin: 05/21/17 00:31 Dose: 25 mg Insulin Glargine (Lantus) 15 unit SC [facility] Last Admin: 05/20/17 21:37 Dose: 15 unit Insulin Human Regular (Novolin R) [address] [facility] PRN Reason: Protocol Last Admin: 05/21/17 12:36 Dose: 2 unit Nitrofurantoin Macrocrystals (Macrobid) 100 mg PO Q12H [facility] Last Admin: 05/21/17 08:24 Dose: 100 mg Pantoprazole Sodium (Protonix Ec Tab) 40 mg PO DAILY [facility] Last Admin: 05/21/17 10:07 Dose: 40 mg Risperidone (Risperdal Tab) 1 mg PO HS [facility] Trazodone HCl (Desyrel) 50 mg PO HS [facility] Last Admin: 05/18/17 21:49 Dose: 50 mg - Labs Labs: 05/18/17 07:54 05/18/17 07:13 - Additional Findings Additional findings: - Head Exam Head Exam: ATRAUMATIC, NORMAL INSPECTION, NORMOCEPHALIC - Eye Exam Eye Exam: EOMI, Normal appearance, PERRL. absent: Periorbital tenderness Pupil Exam: NORMAL ACCOMODATION, PERRL. absent: Irregular, Unequal - ENT Exam ENT Exam: Mucous Membranes Moist, Normal Oropharynx - Neck Exam Neck Exam: Normal Inspection. absent: Lymphadenopathy, Thyromegaly - Respiratory Exam Respiratory Exam: Clear to Ausculation Bilateral, NORMAL BREATHING PATTERN. absent: Chest Wall Tenderness, Prolonged Expiratory Phase, Respiratory Distress - Cardiovascular Exam Cardiovascular Exam: REGULAR RHYTHM, +S1, +S2 - GI/Abdominal Exam GI & Abdominal Exam: Soft, Normal Bowel Sounds. absent: Rigid, Hyperactive Bowel Sounds - Extremities Exam Extremities Exam: Full ROM. absent: Joint Swelling, Pedal Edema, Tenderness - Back Exam Back Exam: NORMAL INSPECTION. absent: CVA tenderness (L), CVA tenderness (R), paraspinal tenderness - Neurological Exam Neurological Exam: Alert, Awake, CN II-XII Intact - Psychiatric Exam Psychiatric exam: Normal Affect, Normal Mood - Skin Skin Exam: Dry, Intact Assessment and Plan - Assessment and Plan (Free Text) Plan: Polysubstance Abuse in the setting of Bipolar Disorder with psychotic features 1:1 for observation Psychiatry recs: Cogentin 1mg PO HS Gabapentin 300mg PO TID Hydroxyzine 25mg PO Q6 prn Ativan 1mg PO Q6 prn Ativan 0.5 mg PO Q6 prn Risperidone 1mg PO HS Depakote 250 mg PO BID Depakote 250 mg PO HS Atarax 25 mg PO Q6 prn UDS positive for benzos Patient was found taking more medications than she was being given in rehab. Apparently other people were bringing meds and alcohol into the facility. Patient denies. She actually says that they have been taking medications from her. Unsteady Gait and diffuse pain Patient can only ambulate with walker and needs assistance Resumed MISA medication Percocet 5/325 Q8H prn Continue Oxycontin 20 mg PO Q12H [facility] UTI + nitrate and WBC Urine cultures grew E. coli. Limited in what can be given since patient refusing IV access. Repeat UC 05/20/17 - no growth up to date Macrobid 100 mg PO Q12 since 05/13/17 - 05/22/17 - to complete 10 day course Diabetes Accuchecks ACHS ISS Lantus 10 units HS Hypoglycemia protocol Hgba1c 10 lipid panel unremarkable Prophylactic Measures SCDS, VTE contraindicated due to thrombocytopenic Protonix 40mg PO daily PT/OT- recommend MISA but patient's insurance does not have anymore MISA days Diabetic diet Daughter Kasandra [phone] Disposition: Will need to follow up with social work team for discharge planning. Unfortunately, it seems that the numbers on file for the family members may be incorrect as it is likely that the family does not want to be involved with the patient. DW Ligia Chauhan DO, PGY-1 <Janeen Miner - Last Filed: 05/22/17 07:27> Objective - Vital Signs/Intake and Output Vital Signs (last 24 hours): Temp Pulse Resp BP Pulse Ox 97.7 F 54 L 20 100/62 95 05/21/17 16:24 05/21/17 16:24 05/21/17 16:24 05/21/17 16:24 05/21/17 16:24 Intake and Output: 05/22/17 05/22/17 06:59 18:59 Intake Total 660 Output Total 500 Balance 160 - Medications Medications: Current Medications Benztropine Mesylate (Cogentin) 1 mg PO [facility] Last Admin: 05/21/17 22:01 Dose: 1 mg Dextrose (Dextrose 50% Inj) 0 ml IV STAT PRN; Protocol PRN Reason: Hypoglycemia Protocol Dextrose (Glutose 15) 0 gm PO ONCE PRN; Protocol PRN Reason: Hypoglycemia Protocol Divalproex Sodium (Depakote Dr) 250 mg PO [facility] Last Admin: 05/21/17 22:01 Dose: 250 mg Divalproex Sodium (Depakote Dr) 250 mg PO BID [facility] Last Admin: 05/21/17 17:43 Dose: 250 mg Gabapentin (Neurontin) 100 mg PO TID [facility] Last Admin: 05/21/17 17:43 Dose: 100 mg Glucagon (Glucagen Diagnostic Kit) 0 mg IM STAT PRN; Protocol PRN Reason: Hypoglycemia Protocol Haloperidol (Haldol) 2 mg PO Q1H PRN PRN Reason: agitation 4x/24h Last Admin: 05/22/17 03:10 Dose: 2 mg Hydroxyzine HCl (Atarax) 25 mg PO Q6 PRN PRN Reason: Agitation Last Admin: 05/22/17 01:51 Dose: 25 mg Insulin Glargine (Lantus) 15 unit SC [facility] Last Admin: 05/21/17 22:00 Dose: 15 unit Insulin Human Regular (Novolin R) [address] [facility] PRN Reason: Protocol Last Admin: 05/21/17 22:04 Dose: Not Given Nitrofurantoin Macrocrystals (Macrobid) 100 mg PO Q12H [facility] Stop: 05/22/17 23:59 Last Admin: 05/21/17 21:45 Dose: 100 mg Pantoprazole Sodium (Protonix Ec Tab) 40 mg PO DAILY [facility] Last Admin: 05/21/17 10:07 Dose: 40 mg Risperidone (Risperdal Tab) 1 mg PO [facility] Last Admin: 05/21/17 22:07 Dose: 1 mg Trazodone HCl (Desyrel) 50 mg PO [facility] Last Admin: 05/18/17 21:49 Dose: 50 mg - Labs Labs: 05/18/17 07:54 05/18/17 07:13 Attending/Attestation - Attestation I have personally seen and examined this patient.: Yes Notes (Text): Seen and examined dara wants to get in touch with her family to get help. Denies pain. She is very upset that SW was not able to help to get her family. She was told that all listed numbers not correct numbers. D/W the resident I agree with the documentation of the assessment and the plan
[2017-05-21] MEDS: (Lantus) Insulin Glargine, Recombinant SC SCH (22:00)
[2017-05-22 08:05] LABS: BASO % 0.3 % (0.0-2.0); EOS # 0.1 K/uL (0.0-0.7); EOS % 2.4 % (0.0-4.0); HEMOGLOBIN 12.1 g/dL (11.0-16.0); LYMPH # 1.6 K/uL (1.0-4.3); LYMPH % 36.7 % (20.0-40.0); MEAN CORPUSCULAR HEMOGLOBIN 28.8 pg (27.0-31.0); MEAN CORPUSCULAR HGB CONC 34.7 g/dL (33.0-37.0); MEAN PLATELET VOLUME 9.8 fL (7.2-11.7); MONO # 0.4 K/uL (0.0-0.8); MONO % 8.5 % (0.0-10.0); NEUT # 2.3 K/uL (1.8-7.0); NEUT % 52.1 % (50.0-75.0); NRBC % 0.2 % (0.0-2.0); RBC 4.18 Mil/uL (3.80-5.20); RED CELL DISTRIBUTION WIDTH 13.5 % (11.5-14.5); WHITE BLOOD COUNT 4.4 K/uL (4.8-10.8)
[2017-05-22] MEDS: (Novolin R) Insulin Human Regular 100 units/ml vial SC SCH ×4 (08:25→21:27)
[2017-05-22 08:52] LABS: ALBUMIN 3.7 g/dL (3.5-5.0); ALT/SGPT 38 U/L (9-52); AST/SGOT 27 U/L (14-36); BLOOD UREA NITROGEN 13 mg/dL (7-17); CALCIUM 9.3 mg/dl (8.6-10.4); GFR AFRICAN-AMERICAN > 60; GFR NON-AFRICAN AMERICAN > 60; MAGNESIUM 1.8 mg/dL (1.6-2.3)
[2017-05-22] MEDS ORDERED: Potassium Chloride 20 mEq ER Tab PO STA (09:27)
[2017-05-22] MEDS: Divalproex 250 mg DR Tab PO SCH ×3 (10:13→21:26)
[2017-05-22] MEDS: Pantoprazole 40 mg EC Tab PO SCH (10:13)
--- NOTE | 2017-05-22 19:12 | CP.PCM.PN ---
<Luz Strong - Last Filed: 05/22/17 19:07> Subjective - Date & Time of Evaluation Date of Evaluation: 05/22/17 Time of Evaluation: 09:00 - Subjective Subjective: Medicine Note for Hospitalist Service- Dr. Miner Patient was seen and examined at bedside. Reports she is agreeable to being discharged to a correction. Denied fever, chills, headache, chest pain, abdominal pain, n/v/d/c, or urinary symptoms. Objective - Vital Signs/Intake and Output Vital Signs (last 24 hours): Temp Pulse Resp BP Pulse Ox 98.5 F 78 20 156/85 H 95 05/22/17 15:00 05/22/17 15:00 05/22/17 15:00 05/22/17 15:00 05/22/17 15:00 Intake and Output: 05/22/17 05/23/17 18:59 06:59 Intake Total 400 Balance 400 - Medications Medications: Current Medications Benztropine Mesylate (Cogentin) 1 mg PO [facility] Last Admin: 05/21/17 22:01 Dose: 1 mg Dextrose (Dextrose 50% Inj) 0 ml IV STAT PRN; Protocol PRN Reason: Hypoglycemia Protocol Dextrose (Glutose 15) 0 gm PO ONCE PRN; Protocol PRN Reason: Hypoglycemia Protocol Divalproex Sodium (Depakote Dr) 250 mg PO [facility] Last Admin: 05/21/17 22:01 Dose: 250 mg Divalproex Sodium (Depakote Dr) 250 mg PO BID [facility] Last Admin: 05/22/17 17:23 Dose: 250 mg Gabapentin (Neurontin) 100 mg PO TID [facility] Last Admin: 05/22/17 17:29 Dose: 100 mg Glucagon (Glucagen Diagnostic Kit) 0 mg IM STAT PRN; Protocol PRN Reason: Hypoglycemia Protocol Haloperidol (Haldol) 2 mg PO Q1H PRN PRN Reason: agitation 4x/24h Last Admin: 05/22/17 17:23 Dose: 2 mg Hydroxyzine HCl (Atarax) 25 mg PO Q6 PRN PRN Reason: Agitation Last Admin: 05/22/17 01:51 Dose: 25 mg Insulin Glargine (Lantus) 15 unit SC [facility] Last Admin: 05/21/17 22:00 Dose: 15 unit Insulin Human Regular (Novolin R) 0 unit SC [facility] PRN Reason: Protocol Last Admin: 05/22/17 17:29 Dose: 4 unit Nitrofurantoin Macrocrystals (Macrobid) 100 mg PO Q12H [facility] Stop: 05/22/17 23:59 Last Admin: 05/22/17 09:13 Dose: 100 mg Pantoprazole Sodium (Protonix Ec Tab) 40 mg PO DAILY [facility] Last Admin: 05/22/17 10:13 Dose: 40 mg Risperidone (Risperdal Tab) 1 mg PO HS [facility] Last Admin: 05/21/17 22:07 Dose: 1 mg Trazodone HCl (Desyrel) 50 mg PO [facility] Last Admin: 05/18/17 21:49 Dose: 50 mg - Labs Labs: 05/22/17 07:50 05/22/17 07:50 - Additional Findings Additional findings: - Head Exam Head Exam: ATRAUMATIC, NORMAL INSPECTION, NORMOCEPHALIC - Eye Exam Eye Exam: EOMI, Normal appearance, PERRL. absent: Periorbital tenderness Pupil Exam: NORMAL ACCOMODATION, PERRL. absent: Irregular, Unequal - ENT Exam ENT Exam: Mucous Membranes Moist, Normal Oropharynx - Neck Exam Neck Exam: Normal Inspection. absent: Lymphadenopathy, Thyromegaly - Respiratory Exam Respiratory Exam: Clear to Ausculation Bilateral, NORMAL BREATHING PATTERN. absent: Chest Wall Tenderness, Prolonged Expiratory Phase, Respiratory Distress - Cardiovascular Exam Cardiovascular Exam: REGULAR RHYTHM, +S1, +S2 - GI/Abdominal Exam GI & Abdominal Exam: Soft, Normal Bowel Sounds. absent: Rigid, Hyperactive Bowel Sounds - Extremities Exam Extremities Exam: Full ROM. absent: Joint Swelling, Pedal Edema, Tenderness - Back Exam Back Exam: NORMAL INSPECTION. absent: CVA tenderness (L), CVA tenderness (R), paraspinal tenderness - Neurological Exam Neurological Exam: Alert, Awake, CN II-XII Intact - Psychiatric Exam Psychiatric exam: Normal Affect, Normal Mood - Skin Skin Exam: Dry, Intact Assessment and Plan - Assessment and Plan (Free Text) Plan: Polysubstance Abuse in the setting of Bipolar Disorder with psychotic features 1:1 for observation Psychiatry recs: Cogentin 1mg PO HS Gabapentin 300mg PO TID Hydroxyzine 25mg PO Q6 prn Ativan 1mg PO Q6 prn Ativan 0.5 mg PO Q6 prn Risperidone 1mg PO HS Depakote 250 mg PO BID Depakote 250 mg PO HS Atarax 25 mg PO Q6 prn UDS positive for benzos Patient was found taking more medications than she was being given in rehab. Apparently other people were bringing meds and alcohol into the facility. Patient denies. She actually says that they have been taking medications from her. Diabetes Accuchecks ACHS ISS Lantus 10 units HS Hypoglycemia protocol Hgba1c 10 lipid panel unremarkable Unsteady Gait and diffuse pain Patient can only ambulate with walker and needs assistance Resumed MISA medication Percocet 5/325 Q8H prn Continue Oxycontin 20 mg PO Q12H PRAB[facility] UTI _ RESOLVED + nitrate and WBC Urine cultures grew E. coli. Limited in what can be given since patient refusing IV access. Repeat UC 05/20/17 - no growth up to date Macrobid 100 mg PO Q12 since 05/13/17 - 05/22/17 - to complete 10 day course Prophylactic Measures SCDS, VTE contraindicated due to thrombocytopenic Protonix 40mg PO daily PT/OT- recommend MISA but patient's insurance does not have anymore MISA days Diabetic diet Daughter Kasandra [phone] (incorrect number) Disposition: Will need to follow up with social work team for discharge planning. Unfortunately, it seems that the numbers on file for the family members may be incorrect as it is likely that the family does not want to be involved with the patient. Labs will be drawn every 4 days until discharge. DW Ligia Chauhan DO, PGY-1 <Janeen Miner - Last Filed: 05/23/17 12:15> Objective - Vital Signs/Intake and Output Vital Signs (last 24 hours): Temp Pulse Resp BP Pulse Ox 98.1 F 88 20 163/92 H 97 05/23/17 08:10 05/23/17 08:10 05/23/17 08:10 05/23/17 08:10 05/23/17 08:10 Intake and Output: 05/23/17 05/23/17 06:59 18:59 Intake Total 360 Balance 360 - Medications Medications: Current Medications Benztropine Mesylate (Cogentin) 1 mg PO HS [facility] Last Admin: 05/22/17 21:25 Dose: 1 mg Dextrose (Dextrose 50% Inj) 0 ml IV STAT PRN; Protocol PRN Reason: Hypoglycemia Protocol Dextrose (Glutose 15) 0 gm PO ONCE PRN; Protocol PRN Reason: Hypoglycemia Protocol Divalproex Sodium (Depakote Dr) 250 mg PO [facility] Last Admin: 05/22/17 21:26 Dose: 250 mg Divalproex Sodium (Depakote Dr) 250 mg PO BID [facility] Last Admin: 05/23/17 09:07 Dose: 250 mg Gabapentin (Neurontin) 100 mg PO TID [facility] Last Admin: 05/23/17 09:06 Dose: 100 mg Glucagon (Glucagen Diagnostic Kit) 0 mg IM STAT PRN; Protocol PRN Reason: Hypoglycemia Protocol Haloperidol (Haldol) 2 mg PO Q1H PRN PRN Reason: agitation 4x/24h Last Admin: 05/22/17 21:27 Dose: 2 mg Hydroxyzine HCl (Atarax) 25 mg PO Q6 PRN PRN Reason: Agitation Last Admin: 05/23/17 09:07 Dose: 25 mg Insulin Glargine (Lantus) 15 unit SC [facility] Last Admin: 05/22/17 21:26 Dose: 15 unit Insulin Human Regular (Novolin R) 0 unit SC [facility] PRN Reason: Protocol Last Admin: 05/23/17 08:01 Dose: Not Given Pantoprazole Sodium (Protonix Ec Tab) 40 mg PO DAILY [facility] Last Admin: 05/23/17 09:06 Dose: 40 mg Risperidone (Risperdal Tab) 1 mg PO [facility] Last Admin: 05/22/17 22:00 Dose: 1 mg Trazodone HCl (Desyrel) 50 mg PO [facility] Last Admin: 05/18/17 21:49 Dose: 50 mg - Labs Labs: 05/23/17 06:48 05/23/17 06:48 Attending/Attestation - Attestation I have personally seen and examined this patient.: Yes I have fully participated in the care of the patient.: Yes I have reviewed all pertinent clinical information, including history, physical exam and plan: Yes Notes (Text): Patient was seen and examined She denies pain Discussed with the resident i agree with the documentation of the assessment and the plan
[2017-05-22] MEDS: (Lantus) Insulin Glargine, Recombinant SC SCH (21:26)
[2017-05-23 07:12] LABS: ALBUMIN 3.6 g/dL (3.5-5.0); ALT/SGPT 35 U/L (9-52); AST/SGOT 24 U/L (14-36); BLOOD UREA NITROGEN 11 mg/dL (7-17); GFR AFRICAN-AMERICAN > 60; GFR NON-AFRICAN AMERICAN > 60; MAGNESIUM 1.7 mg/dL (1.6-2.3)
[2017-05-23 07:25] LABS: BASO # 0.1 K/uL (0.0-0.2); EOS # 0.1 K/uL (0.0-0.7); HEMOGLOBIN 12.1 g/dL (11.0-16.0); LYMPH # 2.1 K/uL (1.0-4.3); LYMPH % 34.8 % (20.0-40.0); MEAN CELL VOLUME 84.1 fL (81.0-99.0); MEAN CORPUSCULAR HEMOGLOBIN 28.8 pg (27.0-31.0); MEAN CORPUSCULAR HGB CONC 34.3 g/dL (33.0-37.0); MEAN PLATELET VOLUME 9.5 fL (7.2-11.7); MONO # 0.5 K/uL (0.0-0.8); MONO % 8.1 % (0.0-10.0); NEUT # 3.2 K/uL (1.8-7.0); NEUT % 54.1 % (50.0-75.0); RBC 4.18 Mil/uL (3.80-5.20); RED CELL DISTRIBUTION WIDTH 13.1 % (11.5-14.5); WHITE BLOOD COUNT 5.9 K/uL (4.8-10.8)
[2017-05-23] MEDS: (Novolin R) Insulin Human Regular 100 units/ml vial SC SCH ×4 (08:01→21:40)
[2017-05-23] MEDS: Pantoprazole 40 mg EC Tab PO SCH (09:06)
[2017-05-23] MEDS: Divalproex 250 mg DR Tab PO SCH ×3 (09:07→21:35)
[2017-05-23] MEDS ORDERED: Potassium Chloride 20 mEq ER Tab PO ONE (10:00)
--- NOTE | 2017-05-23 12:48 | CP.PCM.PN ---
<ChadkrystaFridaLuz - Last Filed: 05/23/17 12:45> Subjective - Date & Time of Evaluation Date of Evaluation: 05/23/17 Time of Evaluation: 09:00 - Subjective Subjective: Medicine Note for Hospitalist Service- Dr. Miner Patient was seen and examined at bedside. Case was able to get in contact with family. Arrangements are being made to have patient discharged to a residential facility. No acute complaints. Denied fever, chills, headache, chest pain, abdominal pain, n/v/d/c, or urinary symptoms. Objective - Vital Signs/Intake and Output Vital Signs (last 24 hours): Temp Pulse Resp BP Pulse Ox 98.1 F 88 20 163/92 H 97 05/23/17 08:10 05/23/17 08:10 05/23/17 08:10 05/23/17 08:10 05/23/17 08:10 Intake and Output: 05/23/17 05/23/17 06:59 18:59 Intake Total 360 Balance 360 - Medications Medications: Current Medications Benztropine Mesylate (Cogentin) 1 mg PO [facility] Last Admin: 05/22/17 21:25 Dose: 1 mg Dextrose (Dextrose 50% Inj) 0 ml IV STAT PRN; Protocol PRN Reason: Hypoglycemia Protocol Dextrose (Glutose 15) 0 gm PO ONCE PRN; Protocol PRN Reason: Hypoglycemia Protocol Divalproex Sodium (Depakote Dr) 250 mg PO [facility] Last Admin: 05/22/17 21:26 Dose: 250 mg Divalproex Sodium (Depakote Dr) 250 mg PO BID [facility] Last Admin: 05/23/17 09:07 Dose: 250 mg Gabapentin (Neurontin) 100 mg PO TID [facility] Last Admin: 05/23/17 09:06 Dose: 100 mg Glucagon (Glucagen Diagnostic Kit) 0 mg IM STAT PRN; Protocol PRN Reason: Hypoglycemia Protocol Haloperidol (Haldol) 2 mg PO Q1H PRN PRN Reason: agitation 4x/24h Last Admin: 05/22/17 21:27 Dose: 2 mg Hydroxyzine HCl (Atarax) 25 mg PO Q6 PRN PRN Reason: Agitation Last Admin: 05/23/17 09:07 Dose: 25 mg Insulin Glargine (Lantus) 15 unit SC [facility] Last Admin: 05/22/17 21:26 Dose: 15 unit Insulin Human Regular (Novolin R) 0 unit SC [facility] PRN Reason: Protocol Last Admin: 05/23/17 12:30 Dose: 3 unit Pantoprazole Sodium (Protonix Ec Tab) 40 mg PO DAILY [facility] Last Admin: 05/23/17 09:06 Dose: 40 mg Risperidone (Risperdal Tab) 1 mg PO HS [facility] Last Admin: 05/22/17 22:00 Dose: 1 mg Trazodone HCl (Desyrel) 50 mg PO HS [facility] Last Admin: 05/18/17 21:49 Dose: 50 mg - Labs Labs: 05/23/17 06:48 05/23/17 06:48 - Additional Findings Additional findings: - Head Exam Head Exam: ATRAUMATIC, NORMAL INSPECTION, NORMOCEPHALIC - Eye Exam Eye Exam: EOMI, Normal appearance, PERRL. absent: Periorbital tenderness Pupil Exam: NORMAL ACCOMODATION, PERRL. absent: Irregular, Unequal - ENT Exam ENT Exam: Mucous Membranes Moist, Normal Oropharynx - Neck Exam Neck Exam: Normal Inspection. absent: Lymphadenopathy, Thyromegaly - Respiratory Exam Respiratory Exam: Clear to Ausculation Bilateral, NORMAL BREATHING PATTERN. absent: Chest Wall Tenderness, Prolonged Expiratory Phase, Respiratory Distress - Cardiovascular Exam Cardiovascular Exam: REGULAR RHYTHM, +S1, +S2 - GI/Abdominal Exam GI & Abdominal Exam: Soft, Normal Bowel Sounds. absent: Rigid, Hyperactive Bowel Sounds - Extremities Exam Extremities Exam: Full ROM. absent: Joint Swelling, Pedal Edema, Tenderness - Back Exam Back Exam: NORMAL INSPECTION. absent: CVA tenderness (L), CVA tenderness (R), paraspinal tenderness - Neurological Exam Neurological Exam: Alert, Awake, CN II-XII Intact - Psychiatric Exam Psychiatric exam: Normal Affect, Normal Mood - Skin Skin Exam: Dry, Intact Assessment and Plan - Assessment and Plan (Free Text) Plan: Polysubstance Abuse in the setting of Bipolar Disorder with psychotic features 1:1 for observation Psychiatry recs: Cogentin 1mg PO HS Gabapentin 300mg PO TID Hydroxyzine 25mg PO Q6 prn Ativan 1mg PO Q6 prn Ativan 0.5 mg PO Q6 prn Risperidone 1mg PO HS Depakote 250 mg PO BID Depakote 250 mg PO HS Atarax 25 mg PO Q6 prn UDS positive for benzos Patient was found taking more medications than she was being given in rehab. Apparently other people were bringing meds and alcohol into the facility. Patient denies. She actually says that they have been taking medications from her. Diabetes Accuchecks ACHS ISS Lantus 10 units HS Hypoglycemia protocol Hgba1c 10 lipid panel unremarkable Unsteady Gait and diffuse pain Patient can only ambulate with walker and needs assistance Resumed MISA medication Percocet 5/325 Q8H prn Continue Oxycontin 20 mg PO Q12H [facility] UTI _ RESOLVED + nitrate and WBC Urine cultures grew E. coli. Limited in what can be given since patient refusing IV access. Repeat UC 05/20/17 - no growth up to date Macrobid 100 mg PO Q12 since 05/13/17 - 05/22/17 - to complete 10 day course Prophylactic Measures SCDS, VTE contraindicated due to thrombocytopenic Protonix 40mg PO daily PT/OT- recommend MISA but patient's insurance does not have anymore MISA days Diabetic diet Disposition: Case management was able to get in contact with family. 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 Labs will be drawn every 4 days until discharge. DW Ligia Chauhan DO, PGY-1 <Janeen Miner - Last Filed: 05/24/17 15:24> Objective - Vital Signs/Intake and Output Vital Signs (last 24 hours): Temp Pulse Resp BP Pulse Ox 98.1 F 72 20 129/74 95 05/24/17 09:13 05/24/17 09:13 05/24/17 09:13 05/24/17 09:13 05/24/17 09:13 Intake and Output: 05/24/17 05/24/17 06:59 18:59 Intake Total 550 450 Output Total 400 Balance 150 450 - Medications Medications: Current Medications Benztropine Mesylate (Cogentin) 1 mg PO [facility] Last Admin: 05/23/17 21:35 Dose: 1 mg Dextrose (Dextrose 50% Inj) 0 ml IV STAT PRN; Protocol PRN Reason: Hypoglycemia Protocol Dextrose (Glutose 15) 0 gm PO ONCE PRN; Protocol PRN Reason: Hypoglycemia Protocol Divalproex Sodium (Katia Whipple) 250 mg PO [facility] Last Admin: 05/23/17 21:35 Dose: 250 mg Divalproex Sodium (Depakote Dr) 250 mg PO BID [facility] Last Admin: 05/24/17 09:49 Dose: 250 mg Gabapentin (Neurontin) 100 mg PO TID [facility] Last Admin: 05/24/17 13:42 Dose: 100 mg Glucagon (Glucagen Diagnostic Kit) 0 mg IM STAT PRN; Protocol PRN Reason: Hypoglycemia Protocol Haloperidol (Haldol) 2 mg PO Q1H PRN PRN Reason: agitation 4x/24h Last Admin: 05/24/17 09:49 Dose: 2 mg Hydroxyzine HCl (Atarax) 25 mg PO Q6 PRN PRN Reason: Agitation Last Admin: 05/24/17 11:23 Dose: 25 mg Insulin Glargine (Lantus) 15 unit SC [facility] Last Admin: 05/23/17 21:39 Dose: 15 unit Insulin Human Regular (Novolin R) 0 unit SC [facility] PRN Reason: Protocol Last Admin: 05/24/17 11:59 Dose: 4 unit Pantoprazole Sodium (Protonix Ec Tab) 40 mg PO DAILY [facility] Last Admin: 05/24/17 09:49 Dose: 40 mg Risperidone (Risperdal Tab) 1 mg PO [facility] Last Admin: 05/23/17 21:35 Dose: 1 mg Trazodone HCl (Desyrel) 50 mg PO [facility] Last Admin: 05/18/17 21:49 Dose: 50 mg - Labs Labs: 05/23/17 06:48 05/23/17 06:48 Attending/Attestation - Attestation I have personally seen and examined this patient.: Yes I have fully participated in the care of the patient.: Yes I have reviewed all pertinent clinical information, including history, physical exam and plan: Yes Notes (Text): Seen and examined patient is feeling better No complain I agree with the assessment and the plan of the resident 05/24/17 15:23
[2017-05-23] MEDS: (Lantus) Insulin Glargine, Recombinant SC SCH (21:39)
--- NOTE | 2017-05-24 06:57 | CP.PCM.PN ---
<Jil Stronga - Last Filed: 05/24/17 11:14> Subjective - Date & Time of Evaluation Date of Evaluation: 05/24/17 Time of Evaluation: 07:00 - Subjective Subjective: Medicine Note for Hospitalist Service- Dr. Miner Patient was seen and examined at bedside. No acute complaints. Case was able to get in contact with family. Arrangements are being made to have patient discharged to a [facility]. No acute complaints. Denied fever, chills, headache, chest pain, abdominal pain, n/v/d/c, or urinary symptoms. Objective - Vital Signs/Intake and Output Vital Signs (last 24 hours): Temp Pulse Resp BP Pulse Ox 97.9 F 80 20 137/85 97 05/24/17 00:00 05/24/17 06:00 05/24/17 06:00 05/24/17 06:00 05/24/17 06:00 Intake and Output: 05/23/17 05/24/17 18:59 06:59 Intake Total 840 550 Output Total 400 Balance 840 150 - Medications Medications: Current Medications Benztropine Mesylate (Cogentin) 1 mg PO [facility] Last Admin: 05/23/17 21:35 Dose: 1 mg Dextrose (Dextrose 50% Inj) 0 ml IV STAT PRN; Protocol PRN Reason: Hypoglycemia Protocol Dextrose (Glutose 15) 0 gm PO ONCE PRN; Protocol PRN Reason: Hypoglycemia Protocol Divalproex Sodium (Depakote Dr) 250 mg PO [facility] Last Admin: 05/23/17 21:35 Dose: 250 mg Divalproex Sodium (Depakote Dr) 250 mg PO BID [facility] Last Admin: 05/23/17 17:56 Dose: 250 mg Gabapentin (Neurontin) 100 mg PO TID [facility] Last Admin: 05/23/17 17:56 Dose: 100 mg Glucagon (Glucagen Diagnostic Kit) 0 mg IM STAT PRN; Protocol PRN Reason: Hypoglycemia Protocol Haloperidol (Haldol) 2 mg PO Q1H PRN PRN Reason: agitation 4x/24h Last Admin: 05/24/17 02:35 Dose: 2 mg Hydroxyzine HCl (Atarax) 25 mg PO Q6 PRN PRN Reason: Agitation Last Admin: 05/23/17 16:58 Dose: 25 mg Insulin Glargine (Lantus) 15 unit SC [facility] Last Admin: 02/14/18 21:39 Dose: 15 unit Insulin Human Regular (Novolin R) 0 unit SC ACHS [facility] PRN Reason: Protocol Last Admin: 05/23/17 21:40 Dose: Not Given Pantoprazole Sodium (Protonix Ec Tab) 40 mg PO DAILY [facility] Last Admin: 05/23/17 09:06 Dose: 40 mg Risperidone (Risperdal Tab) 1 mg PO HS [facility] Last Admin: 05/23/17 21:35 Dose: 1 mg Trazodone HCl (Desyrel) 50 mg PO [facility] Last Admin: 05/18/17 21:49 Dose: 50 mg - Labs Labs: 05/23/17 06:48 05/23/17 06:48 - Additional Findings Additional findings: - Head Exam Head Exam: ATRAUMATIC, NORMAL INSPECTION, NORMOCEPHALIC - Eye Exam Eye Exam: EOMI, Normal appearance, PERRL. absent: Periorbital tenderness Pupil Exam: NORMAL ACCOMODATION, PERRL. absent: Irregular, Unequal - ENT Exam ENT Exam: Mucous Membranes Moist, Normal Oropharynx - Neck Exam Neck Exam: Normal Inspection. absent: Lymphadenopathy, Thyromegaly - Respiratory Exam Respiratory Exam: Clear to Ausculation Bilateral, NORMAL BREATHING PATTERN. absent: Chest Wall Tenderness, Prolonged Expiratory Phase, Respiratory Distress - Cardiovascular Exam Cardiovascular Exam: REGULAR RHYTHM, +S1, +S2 - GI/Abdominal Exam GI & Abdominal Exam: Soft, Normal Bowel Sounds. absent: Rigid, Hyperactive Bowel Sounds - Extremities Exam Extremities Exam: Full ROM. absent: Joint Swelling, Pedal Edema, Tenderness - Back Exam Back Exam: NORMAL INSPECTION. absent: CVA tenderness (L), CVA tenderness (R), paraspinal tenderness - Neurological Exam Neurological Exam: Alert, Awake, CN II-XII Intact - Psychiatric Exam Psychiatric exam: Normal Affect, Normal Mood - Skin Skin Exam: Dry, Intact Assessment and Plan - Assessment and Plan (Free Text) Plan: Polysubstance Abuse in the setting of Bipolar Disorder with psychotic features 1:1 for observation Psychiatry recs: Cogentin 1mg PO HS Gabapentin 300mg PO TID Hydroxyzine 25mg PO Q6 prn Ativan 1mg PO Q6 prn Ativan 0.5 mg PO Q6 prn Risperidone 1mg PO HS Depakote 250 mg PO BID Depakote 250 mg PO HS Atarax 25 mg PO Q6 prn UDS positive for benzos Patient was found taking more medications than she was being given in rehab. Apparently other people were bringing meds and alcohol into the facility. Patient denies. She actually says that they have been taking medications from her. Diabetes Accuchecks ACHS ISS Lantus 10 units HS Hypoglycemia protocol Hgba1c 10 lipid panel unremarkable Unsteady Gait and diffuse pain Patient can only ambulate with walker and needs assistance Resumed MISA medication Percocet 5/325 Q8H prn Continue Oxycontin 20 mg PO Q12H [facility] UTI _ RESOLVED + nitrate and WBC Urine cultures grew E. coli. Limited in what can be given since patient refusing IV access. Repeat UC 05/20/17 - no growth up to date Macrobid 100 mg PO Q12 since 05/13/17 - 05/22/17 - to complete 10 day course Prophylactic Measures SCDS, VTE contraindicated due to thrombocytopenic Protonix 40mg PO daily PT/OT- recommend MISA but patient's insurance does not have anymore MISA days Diabetic diet Disposition: Case management was able to get in contact with family. Plans are for a longterm facility - pending approval for discharge. Labs will be drawn every 4 days until discharge. DW Ligia Chauhan DO, PGY-1 <Jnaeen Miner - Last Filed: 05/24/17 15:39> Objective - Vital Signs/Intake and Output Vital Signs (last 24 hours): Temp Pulse Resp BP Pulse Ox 98.1 F 72 20 129/74 95 05/24/17 09:13 05/24/17 09:13 05/24/17 09:13 05/24/17 09:13 05/24/17 09:13 Intake and Output: 05/24/17 05/24/17 06:59 18:59 Intake Total 550 450 Output Total 400 Balance 150 450 - Medications Medications: Current Medications Benztropine Mesylate (Cogentin) 1 mg PO [facility] Last Admin: 05/23/17 21:35 Dose: 1 mg Dextrose (Dextrose 50% Inj) 0 ml IV STAT PRN; Protocol PRN Reason: Hypoglycemia Protocol Dextrose (Glutose 15) 0 gm PO ONCE PRN; Protocol PRN Reason: Hypoglycemia Protocol Divalproex Sodium (Katia Whipple) 250 mg PO [facility] Last Admin: 05/23/17 21:35 Dose: 250 mg Divalproex Sodium (Depakote Dr) 250 mg PO BID [facility] Last Admin: 05/24/17 09:49 Dose: 250 mg Gabapentin (Neurontin) 100 mg PO TID [facility] Last Admin: 05/24/17 13:42 Dose: 100 mg Glucagon (Glucagen Diagnostic Kit) 0 mg IM STAT PRN; Protocol PRN Reason: Hypoglycemia Protocol Haloperidol (Haldol) 2 mg PO Q1H PRN PRN Reason: agitation 4x/24h Last Admin: 05/24/17 09:49 Dose: 2 mg Hydroxyzine HCl (Atarax) 25 mg PO Q6 PRN PRN Reason: Agitation Last Admin: 05/24/17 11:23 Dose: 25 mg Insulin Glargine (Lantus) 15 unit SC [facility] Last Admin: 05/23/17 21:39 Dose: 15 unit Insulin Human Regular (Novolin R) 0 unit SC [facility] PRN Reason: Protocol Last Admin: 05/24/17 11:59 Dose: 4 unit Pantoprazole Sodium (Protonix Ec Tab) 40 mg PO DAILY [facility] Last Admin: 05/24/17 09:49 Dose: 40 mg Risperidone (Risperdal Tab) 1 mg PO [facility] Last Admin: 05/23/17 21:35 Dose: 1 mg Trazodone HCl (Desyrel) 50 mg PO [facility] Last Admin: 05/18/17 21:49 Dose: 50 mg - Labs Labs: 05/23/17 06:48 05/23/17 06:48 Attending/Attestation - Attestation I have personally seen and examined this patient.: Yes I have fully participated in the care of the patient.: Yes I have reviewed all pertinent clinical information, including history, physical exam and plan: Yes Notes (Text): Seen and examined patient has no complain lying comfortable d/w the resident I agree with the documentation of the resident's assessment and the plan 05/24/17 15:25
[2017-05-24] MEDS: (Novolin R) Insulin Human Regular 100 units/ml vial SC SCH ×4 (08:25→23:20)
[2017-05-24] MEDS: Pantoprazole 40 mg EC Tab PO SCH (09:49)
[2017-05-24] MEDS: Divalproex 250 mg DR Tab PO SCH ×3 (09:49→21:13)
--- NOTE | 2017-05-24 17:35 | CP.PCM.PCO ---
Physician Communication Note - Physician Communication Note Physician Communication Note: Spoke to nurse just now. Doing much better, will d /c 1:1
[2017-05-24] MEDS: (Lantus) Insulin Glargine, Recombinant SC SCH (21:13)
[2017-05-25] MEDS: (Novolin R) Insulin Human Regular 100 units/ml vial SC SCH ×4 (08:02→23:00)
--- NOTE | 2017-05-25 09:42 | CP.PCM.PN ---
<Ivonne Healy - Last Filed: 05/25/17 14:19> Subjective - Date & Time of Evaluation Date of Evaluation: 05/25/17 Time of Evaluation: 09:38 - Subjective Subjective: Patient seen and examined at bedside. No acute events overnight. Patient resting comfortably in bed with no new complaints at this time. Patient denies chest pain, SOB, abdominal pain, nausea, vomiting, diarrhea, constipation, Leg pain/swelling. Objective - Vital Signs/Intake and Output Vital Signs (last 24 hours): Temp Pulse Resp BP Pulse Ox 98.0 F 67 20 155/86 H 96 05/25/17 08:24 05/25/17 08:24 05/25/17 08:24 05/25/17 08:24 05/25/17 08:24 Intake and Output: 05/25/17 05/25/17 06:59 18:59 Intake Total 500 Output Total 600 Balance -100 - Medications Medications: Current Medications Benztropine Mesylate (Cogentin) 1 mg PO HS [facility] Last Admin: 05/24/17 21:13 Dose: 1 mg Dextrose (Dextrose 50% Inj) 0 ml IV STAT PRN; Protocol PRN Reason: Hypoglycemia Protocol Dextrose (Glutose 15) 0 gm PO ONCE PRN; Protocol PRN Reason: Hypoglycemia Protocol Divalproex Sodium (Depakote Dr) 250 mg PO [facility] Last Admin: 05/24/17 21:13 Dose: 250 mg Divalproex Sodium (Depakote Dr) 250 mg PO BID [facility] Last Admin: 05/24/17 17:57 Dose: 250 mg Gabapentin (Neurontin) 100 mg PO TID [facility] Last Admin: 05/24/17 17:56 Dose: 100 mg Glucagon (Glucagen Diagnostic Kit) 0 mg IM STAT PRN; Protocol PRN Reason: Hypoglycemia Protocol Haloperidol (Haldol) 2 mg PO Q1H PRN PRN Reason: agitation 4x/24h Last Admin: 05/24/17 21:19 Dose: 2 mg Hydroxyzine HCl (Atarax) 25 mg PO Q6 PRN PRN Reason: Agitation Last Admin: 05/25/17 03:51 Dose: 25 mg Insulin Glargine (Lantus) 15 unit SC [facility] Last Admin: 05/24/17 21:13 Dose: 15 unit Insulin Human Regular (Novolin R) 0 unit SC [facility] PRN Reason: Protocol Last Admin: 05/25/17 08:02 Dose: 3 unit Pantoprazole Sodium (Protonix Ec Tab) 40 mg PO DAILY [facility] Last Admin: 05/24/17 09:49 Dose: 40 mg Risperidone (Risperdal Tab) 1 mg PO HS [facility] Last Admin: 05/24/17 21:13 Dose: 1 mg Trazodone HCl (Desyrel) 50 mg PO HS [facility] Last Admin: 05/18/17 21:49 Dose: 50 mg - Labs Labs: 05/23/17 06:48 05/23/17 06:48 - Additional Findings Additional findings: - Head Exam Head Exam: ATRAUMATIC, NORMAL INSPECTION, NORMOCEPHALIC - Eye Exam Eye Exam: EOMI, Normal appearance, PERRL. absent: Periorbital tenderness Pupil Exam: NORMAL ACCOMODATION, PERRL. absent: Irregular, Unequal - ENT Exam ENT Exam: Mucous Membranes Moist, Normal Oropharynx - Neck Exam Neck Exam: Normal Inspection. absent: Lymphadenopathy, Thyromegaly - Respiratory Exam Respiratory Exam: Clear to Ausculation Bilateral, NORMAL BREATHING PATTERN. absent: Chest Wall Tenderness, Prolonged Expiratory Phase, Respiratory Distress - Cardiovascular Exam Cardiovascular Exam: REGULAR RHYTHM, +S1, +S2 - GI/Abdominal Exam GI & Abdominal Exam: Soft, Normal Bowel Sounds. absent: Rigid, Hyperactive Bowel Sounds - Extremities Exam Extremities Exam: Full ROM. absent: Joint Swelling, Pedal Edema, Tenderness - Back Exam Back Exam: NORMAL INSPECTION. absent: CVA tenderness (L), CVA tenderness (R), paraspinal tenderness - Neurological Exam Neurological Exam: Alert, Awake, CN II-XII Intact - Psychiatric Exam Psychiatric exam: Normal Affect, Normal Mood - Skin Skin Exam: Dry, Intact Assessment and Plan - Assessment and Plan (Free Text) Plan: Polysubstance Abuse in the setting of Bipolar Disorder with psychotic features 1:1 for observation discontinued by Dr. Patel on 05/24. Psychiatry recs: Cogentin 1mg PO HS Gabapentin 300mg PO TID Hydroxyzine 25mg PO Q6 prn Ativan 1mg PO Q6 prn Ativan 0.5 mg PO Q6 prn Risperidone 1mg PO HS Depakote 250 mg PO BID Depakote 250 mg PO HS Atarax 25 mg PO Q6 prn UDS positive for benzos Patient was found taking more medications than she was being given in rehab. Apparently other people were bringing meds and alcohol into the facility. Patient denies. She actually says that they have been taking medications from her. Diabetes Accuchecks ACHS ISS Lantus 10 units HS Hypoglycemia protocol Hgba1c 10 lipid panel unremarkable Unsteady Gait and diffuse pain Patient can only ambulate with walker and needs assistance Resumed MISA medication Percocet 5/325 Q8H prn Continue Oxycontin 20 mg PO Q12H [facility] UTI _ RESOLVED + nitrate and WBC Urine cultures grew E. coli. Limited in what can be given since patient refusing IV access. Repeat UC 05/20/17 - no growth up to date Macrobid 100 mg PO Q12 since 05/13/17 - 05/22/17 - to complete 10 day course Prophylactic Measures SCDS, VTE contraindicated due to thrombocytopenic Protonix 40mg PO daily PT/OT- recommend MISA but patient's insurance does not have anymore MISA days Diabetic diet Disposition: Case management was able to get in contact with family. Plans are for a [facility] facility - pending approval for discharge. Labs will be drawn every 4 days until discharge. <Janeen Miner - Last Filed: 05/25/17 16:52> Objective - Vital Signs/Intake and Output Vital Signs (last 24 hours): Temp Pulse Resp BP Pulse Ox 98.0 F 67 20 155/86 H 96 05/25/17 08:24 05/25/17 08:24 05/25/17 08:24 05/25/17 08:24 05/25/17 08:24 Intake and Output: 05/25/17 05/25/17 06:59 18:59 Intake Total 500 360 Output Total 600 Balance -100 360 - Medications Medications: Current Medications Benztropine Mesylate (Cogentin) 1 mg PO HS [facility] Last Admin: 05/24/17 21:13 Dose: 1 mg Dextrose (Dextrose 50% Inj) 0 ml IV STAT PRN; Protocol PRN Reason: Hypoglycemia Protocol Dextrose (Glutose 15) 0 gm PO ONCE PRN; Protocol PRN Reason: Hypoglycemia Protocol Divalproex Sodium (Depakote Dr) 250 mg PO HS [facility] Last Admin: 05/24/17 21:13 Dose: 250 mg Divalproex Sodium (Depakote Dr) 250 mg PO BID [facility] Last Admin: 05/25/17 10:14 Dose: 250 mg Gabapentin (Neurontin) 100 mg PO TID [facility] Last Admin: 05/25/17 13:41 Dose: 100 mg Glucagon (Glucagen Diagnostic Kit) 0 mg IM STAT PRN; Protocol PRN Reason: Hypoglycemia Protocol Haloperidol (Haldol) 2 mg PO Q1H PRN PRN Reason: agitation 4x/24h Last Admin: 05/25/17 12:23 Dose: 2 mg Hydroxyzine HCl (Atarax) 25 mg PO Q6 PRN PRN Reason: Agitation Last Admin: 05/25/17 10:14 Dose: 25 mg Insulin Glargine (Lantus) 15 unit SC HS [facility] Last Admin: 05/24/17 21:13 Dose: 15 unit Insulin Human Regular (Novolin R) 0 unit SC ACHS [facility] PRN Reason: Protocol Last Admin: 05/25/17 12:22 Dose: 6 unit Pantoprazole Sodium (Protonix Ec Tab) 40 mg PO DAILY [facility] Last Admin: 05/25/17 10:14 Dose: 40 mg Risperidone (Risperdal Tab) 1 mg PO HS [facility] Last Admin: 05/24/17 21:13 Dose: 1 mg Trazodone HCl (Desyrel) 50 mg PO HS [facility] Last Admin: 05/18/17 21:49 Dose: 50 mg - Labs Labs: 05/23/17 06:48 05/23/17 06:48 Attending/Attestation - Attestation I have personally seen and examined this patient.: Yes I have fully participated in the care of the patient.: Yes I have reviewed all pertinent clinical information, including history, physical exam and plan: Yes Notes (Text): Seen and examined d/w resident I agree with the assessment and the plan of the resident 05/25/17 16:51
[2017-05-25] MEDS: Pantoprazole 40 mg EC Tab PO SCH (10:14)
[2017-05-25] MEDS: Divalproex 250 mg DR Tab PO SCH ×3 (10:14→23:00)
[2017-05-25] MEDS: (Lantus) Insulin Glargine, Recombinant SC SCH (23:00)
--- NOTE | 2017-05-26 00:23 | CP.PCM.PN ---
<Luz Strong - Last Filed: 05/26/17 00:22> Subjective - Date & Time of Evaluation Date of Evaluation: 05/26/17 Time of Evaluation: 00:20 - Subjective Subjective: Medicine Note for Hospitalist Service- Dr. Miner Patient was seen and examined at bedside. No acute complaints. Patient is resting in bed comfortably. Denied fever, chills, headache, chest pain, SOB, abdominal pain, n/v/d/c, or urinary symptoms. Objective - Vital Signs/Intake and Output Vital Signs (last 24 hours): Temp Pulse Resp BP Pulse Ox 98.5 F 71 20 151/97 H 96 05/25/17 15:30 05/25/17 15:30 05/25/17 15:30 05/25/17 15:30 05/25/17 15:30 Intake and Output: 05/25/17 05/26/17 18:59 06:59 Intake Total 360 360 Balance 360 360 - Medications Medications: Current Medications Benztropine Mesylate (Cogentin) 1 mg PO [facility] Last Admin: 05/25/17 22:59 Dose: 1 mg Dextrose (Dextrose 50% Inj) 0 ml IV STAT PRN; Protocol PRN Reason: Hypoglycemia Protocol Dextrose (Glutose 15) 0 gm PO ONCE PRN; Protocol PRN Reason: Hypoglycemia Protocol Divalproex Sodium (Depakote Dr) 250 mg PO [facility] Last Admin: 05/25/17 23:00 Dose: 250 mg Divalproex Sodium (Depakote Dr) 250 mg PO BID [facility] Last Admin: 05/25/17 17:10 Dose: 250 mg Gabapentin (Neurontin) 100 mg PO TID [facility] Last Admin: 05/25/17 17:10 Dose: 100 mg Glucagon (Glucagen Diagnostic Kit) 0 mg IM STAT PRN; Protocol PRN Reason: Hypoglycemia Protocol Haloperidol (Haldol) 2 mg PO Q1H PRN PRN Reason: agitation 4x/24h Last Admin: 05/25/17 12:23 Dose: 2 mg Hydroxyzine HCl (Atarax) 25 mg PO Q6 PRN PRN Reason: Agitation Last Admin: 05/25/17 10:14 Dose: 25 mg Insulin Glargine (Lantus) 15 unit SC [facility] Last Admin: 05/25/17 23:00 Dose: 15 unit Insulin Human Regular (Novolin R) 0 unit SC [facility] PRN Reason: Protocol Last Admin: 05/25/17 23:00 Dose: 2 unit Pantoprazole Sodium (Protonix Ec Tab) 40 mg PO DAILY [facility] Last Admin: 05/25/17 10:14 Dose: 40 mg Risperidone (Risperdal Tab) 1 mg PO HS [facility] Last Admin: 05/25/17 22:59 Dose: 1 mg Trazodone HCl (Desyrel) 50 mg PO HS [facility] Last Admin: 05/18/17 21:49 Dose: 50 mg - Labs Labs: 05/23/17 06:48 05/23/17 06:48 - Additional Findings Additional findings: - Head Exam Head Exam: ATRAUMATIC, NORMAL INSPECTION, NORMOCEPHALIC - Eye Exam Eye Exam: EOMI, Normal appearance, PERRL. absent: Periorbital tenderness Pupil Exam: NORMAL ACCOMODATION, PERRL. absent: Irregular, Unequal - ENT Exam ENT Exam: Mucous Membranes Moist, Normal Oropharynx - Neck Exam Neck Exam: Normal Inspection. absent: Lymphadenopathy, Thyromegaly - Respiratory Exam Respiratory Exam: Clear to Ausculation Bilateral, NORMAL BREATHING PATTERN. absent: Chest Wall Tenderness, Prolonged Expiratory Phase, Respiratory Distress - Cardiovascular Exam Cardiovascular Exam: REGULAR RHYTHM, +S1, +S2 - GI/Abdominal Exam GI & Abdominal Exam: Soft, Normal Bowel Sounds. absent: Rigid, Hyperactive Bowel Sounds - Extremities Exam Extremities Exam: Full ROM. absent: Joint Swelling, Pedal Edema, Tenderness - Back Exam Back Exam: NORMAL INSPECTION. absent: CVA tenderness (L), CVA tenderness (R), paraspinal tenderness - Neurological Exam Neurological Exam: Alert, Awake, CN II-XII Intact - Psychiatric Exam Psychiatric exam: Normal Affect, Normal Mood - Skin Skin Exam: Dry, Intact Assessment and Plan - Assessment and Plan (Free Text) Plan: Polysubstance Abuse in the setting of Bipolar Disorder with psychotic features 1:1 for observation discontinued by Dr. Patel on 05/24. Psychiatry recs: Cogentin 1mg PO HS Gabapentin 300mg PO TID Hydroxyzine 25mg PO Q6 prn Ativan 1mg PO Q6 prn Ativan 0.5 mg PO Q6 prn Risperidone 1mg PO HS Depakote 250 mg PO BID Depakote 250 mg PO HS Atarax 25 mg PO Q6 prn UDS positive for benzos Patient was found taking more medications than she was being given in rehab. Apparently other people were bringing meds and alcohol into the facility. Patient denies. She actually says that they have been taking medications from her. Diabetes Accuchecks ACHS ISS Lantus 10 units HS Hypoglycemia protocol Hgba1c 10 lipid panel unremarkable Unsteady Gait and diffuse pain Patient can only ambulate with walker and needs assistance Resumed MISA medication Percocet 5/325 Q8H prn Continue Oxycontin 20 mg PO Q12H [facility] UTI _ RESOLVED + nitrate and WBC Urine cultures grew E. coli. Limited in what can be given since patient refusing IV access. Repeat UC 05/20/17 - no growth up to date Macrobid 100 mg PO Q12 since 05/13/17 - 05/22/17 - to complete 10 day course Prophylactic Measures SCDS, VTE contraindicated due to thrombocytopenic Protonix 40mg PO daily PT/OT- recommend MISA but patient's insurance does not have anymore MISA days Diabetic diet Disposition: Case management was able to get in contact with family. Plans are for a [facility] facility - pending approval for discharge. Labs will be drawn every 4 days until discharge. DW Luz Chauhan DO, PGY-1 <Janeen Miner - Last Filed: 05/26/17 13:57> Objective - Vital Signs/Intake and Output Vital Signs (last 24 hours): Temp Pulse Resp BP Pulse Ox 98.4 F 63 20 150/79 95 05/26/17 07:43 05/26/17 07:43 05/26/17 07:43 05/26/17 07:43 05/26/17 07:43 Intake and Output: 05/26/17 05/26/17 06:59 18:59 Intake Total 610 Balance 610 - Medications Medications: Current Medications Benztropine Mesylate (Cogentin) 1 mg PO [facility] Last Admin: 05/25/17 22:59 Dose: 1 mg Dextrose (Dextrose 50% Inj) 0 ml IV STAT PRN; Protocol PRN Reason: Hypoglycemia Protocol Dextrose (Glutose 15) 0 gm PO ONCE PRN; Protocol PRN Reason: Hypoglycemia Protocol Divalproex Sodium (Katia Whipple) 250 mg PO [facility] Last Admin: 05/25/17 23:00 Dose: 250 mg Divalproex Sodium (Depakote Dr) 250 mg PO BID [facility] Last Admin: 05/26/17 10:13 Dose: 250 mg Gabapentin (Neurontin) 100 mg PO TID [facility] Last Admin: 05/26/17 13:08 Dose: 100 mg Glucagon (Glucagen Diagnostic Kit) 0 mg IM STAT PRN; Protocol PRN Reason: Hypoglycemia Protocol Haloperidol (Haldol) 2 mg PO Q1H PRN PRN Reason: agitation 4x/24h Last Admin: 05/26/17 00:44 Dose: 2 mg Hydroxyzine HCl (Atarax) 25 mg PO Q6 PRN PRN Reason: Agitation Last Admin: 05/26/17 13:34 Dose: 25 mg Insulin Glargine (Lantus) 15 unit SC [facility] Last Admin: 05/25/17 23:00 Dose: 15 unit Insulin Human Regular (Novolin R) 0 unit SC [facility] PRN Reason: Protocol Last Admin: 05/26/17 12:50 Dose: 2 unit Pantoprazole Sodium (Protonix Ec Tab) 40 mg PO DAILY [facility] Last Admin: 05/26/17 10:12 Dose: 40 mg Risperidone (Risperdal Tab) 1 mg PO [facility] Last Admin: 05/25/17 22:59 Dose: 1 mg Trazodone HCl (Desyrel) 50 mg PO [facility] Last Admin: 05/18/17 21:49 Dose: 50 mg - Labs Labs: 05/23/17 06:48 05/23/17 06:48 Attending/Attestation - Attestation I have personally seen and examined this patient.: No I have fully participated in the care of the patient.: Yes I have reviewed all pertinent clinical information, including history, physical exam and plan: Yes Notes (Text): no changes Medicaid pending 05/26/17 13:56
[2017-05-26] MEDS: (Novolin R) Insulin Human Regular 100 units/ml vial SC SCH ×4 (10:09→22:02)
[2017-05-26] MEDS: Pantoprazole 40 mg EC Tab PO SCH (10:12)
[2017-05-26] MEDS: Divalproex 250 mg DR Tab PO SCH ×3 (10:13→21:56)
[2017-05-26] MEDS: (Lantus) Insulin Glargine, Recombinant SC SCH (21:57)
--- NOTE | 2017-05-27 00:35 | CP.PCM.PN ---
<LigiaLuz - Last Filed: 05/27/17 00:34> Subjective - Date & Time of Evaluation Date of Evaluation: 05/27/17 Time of Evaluation: 00:34 - Subjective Subjective: Medicine Note for Hospitalist Service- Dr. Miner Patient was seen and examined at bedside. No acute complaints. Patient is resting in bed comfortably. Denied fever, chills, headache, chest pain, SOB, abdominal pain, n/v/d/c, or urinary symptoms. Objective - Vital Signs/Intake and Output Vital Signs (last 24 hours): Temp Pulse Resp BP Pulse Ox 98.1 F 89 20 146/85 97 05/26/17 15:15 05/26/17 15:15 05/26/17 15:15 05/26/17 15:15 05/26/17 15:15 Intake and Output: 05/26/17 05/27/17 18:59 06:59 Intake Total 600 350 Balance 600 350 - Medications Medications: Current Medications Benztropine Mesylate (Cogentin) 1 mg PO [facility] Last Admin: 05/26/17 21:57 Dose: 1 mg Dextrose (Dextrose 50% Inj) 0 ml IV STAT PRN; Protocol PRN Reason: Hypoglycemia Protocol Dextrose (Glutose 15) 0 gm PO ONCE PRN; Protocol PRN Reason: Hypoglycemia Protocol Divalproex Sodium (Depakote Dr) 250 mg PO [facility] Last Admin: 05/26/17 21:56 Dose: 250 mg Divalproex Sodium (Depakote Dr) 250 mg PO BID [facility] Last Admin: 05/26/17 17:59 Dose: 250 mg Gabapentin (Neurontin) 100 mg PO TID [facility] Last Admin: 05/26/17 17:55 Dose: 100 mg Glucagon (Glucagen Diagnostic Kit) 0 mg IM STAT PRN; Protocol PRN Reason: Hypoglycemia Protocol Haloperidol (Haldol) 2 mg PO Q1H PRN PRN Reason: agitation 4x/24h Last Admin: 05/26/17 00:44 Dose: 2 mg Hydroxyzine HCl (Atarax) 25 mg PO Q6 PRN PRN Reason: Agitation Last Admin: 05/26/17 13:34 Dose: 25 mg Insulin Glargine (Lantus) 15 unit SC [facility] Last Admin: 05/26/17 21:57 Dose: 15 unit Insulin Human Regular (Novolin R) 0 unit SC [facility] PRN Reason: Protocol Last Admin: 05/26/17 22:02 Dose: 3 unit Pantoprazole Sodium (Protonix Ec Tab) 40 mg PO DAILY [facility] Last Admin: 05/26/17 10:12 Dose: 40 mg Risperidone (Risperdal Tab) 1 mg PO HS [facility] Last Admin: 05/26/17 21:57 Dose: 1 mg Trazodone HCl (Desyrel) 50 mg PO HS [facility] Last Admin: 05/18/17 21:49 Dose: 50 mg Zolpidem Tartrate (Ambien) 5 mg PO HS PRN PRN Reason: Insomnia Stop: 05/29/17 23:00 Last Admin: 05/26/17 21:56 Dose: 5 mg - Labs Labs: 05/23/17 06:48 05/23/17 06:48 - Additional Findings Additional findings: - Head Exam Head Exam: ATRAUMATIC, NORMAL INSPECTION, NORMOCEPHALIC - Eye Exam Eye Exam: EOMI, Normal appearance, PERRL. absent: Periorbital tenderness Pupil Exam: NORMAL ACCOMODATION, PERRL. absent: Irregular, Unequal - ENT Exam ENT Exam: Mucous Membranes Moist, Normal Oropharynx - Neck Exam Neck Exam: Normal Inspection. absent: Lymphadenopathy, Thyromegaly - Respiratory Exam Respiratory Exam: Clear to Ausculation Bilateral, NORMAL BREATHING PATTERN. absent: Chest Wall Tenderness, Prolonged Expiratory Phase, Respiratory Distress - Cardiovascular Exam Cardiovascular Exam: REGULAR RHYTHM, +S1, +S2 - GI/Abdominal Exam GI & Abdominal Exam: Soft, Normal Bowel Sounds. absent: Rigid, Hyperactive Bowel Sounds - Extremities Exam Extremities Exam: Full ROM. absent: Joint Swelling, Pedal Edema, Tenderness - Back Exam Back Exam: NORMAL INSPECTION. absent: CVA tenderness (L), CVA tenderness (R), paraspinal tenderness - Neurological Exam Neurological Exam: Alert, Awake, CN II-XII Intact - Psychiatric Exam Psychiatric exam: Normal Affect, Normal Mood - Skin Skin Exam: Dry, Intact Assessment and Plan - Assessment and Plan (Free Text) Plan: Polysubstance Abuse in the setting of Bipolar Disorder with psychotic features 1:1 for observation discontinued by Dr. Patel on 05/24. Psychiatry recs: Cogentin 1mg PO HS Gabapentin 300mg PO TID Hydroxyzine 25mg PO Q6 prn Ativan 1mg PO Q6 prn Ativan 0.5 mg PO Q6 prn Risperidone 1mg PO HS Depakote 250 mg PO BID Depakote 250 mg PO HS Atarax 25 mg PO Q6 prn UDS positive for benzos Patient was found taking more medications than she was being given in rehab. Apparently other people were bringing meds and alcohol into the facility. Patient denies. She actually says that they have been taking medications from her. Diabetes Accuchecks ACHS ISS Lantus 10 units HS Hypoglycemia protocol Hgba1c 10 lipid panel unremarkable Unsteady Gait and diffuse pain Patient can only ambulate with walker and needs assistance Resumed MISA medication Percocet 5/325 Q8H prn Continue Oxycontin 20 mg PO Q12H PRABHA UTI _ RESOLVED + nitrate and WBC Urine cultures grew E. coli. Limited in what can be given since patient refusing IV access. Repeat UC 05/20/17 - no growth up to date Macrobid 100 mg PO Q12 since 05/13/17 - 05/22/17 - to complete 10 day course Prophylactic Measures SCDS, VTE contraindicated due to thrombocytopenic Protonix 40mg PO daily PT/OT- recommend MISA but patient's insurance does not have anymore MISA days Diabetic diet Disposition: Case management was able to get in contact with family. Plans are for a nursing home facility - pending approval for discharge. Labs will be drawn every [address] DW Dr. Miner, Luz Strong DO, PGY-1 <Janeen Miner - Last Filed: 05/27/17 15:49> Objective - Vital Signs/Intake and Output Vital Signs (last 24 hours): Temp Pulse Resp BP Pulse Ox 97.9 F 85 20 147/69 97 05/27/17 08:19 05/27/17 08:19 05/27/17 08:19 05/27/17 08:19 05/27/17 08:19 Intake and Output: 05/27/17 05/27/17 06:59 18:59 Intake Total 350 800 Balance 350 800 - Medications Medications: Current Medications Benztropine Mesylate (Cogentin) 1 mg PO HS [facility] Last Admin: 05/26/17 21:57 Dose: 1 mg Dextrose (Dextrose 50% Inj) 0 ml IV STAT PRN; Protocol PRN Reason: Hypoglycemia Protocol Dextrose (Glutose 15) 0 gm PO ONCE PRN; Protocol PRN Reason: Hypoglycemia Protocol Divalproex Sodium (Depakote Dr) 250 mg PO HS [facility] Last Admin: 05/26/17 21:56 Dose: 250 mg Divalproex Sodium (Depakote Dr) 250 mg PO BID [facility] Last Admin: 05/27/17 09:59 Dose: 250 mg Gabapentin (Neurontin) 100 mg PO TID [facility] Last Admin: 05/27/17 13:33 Dose: 100 mg Glucagon (Glucagen Diagnostic Kit) 0 mg IM STAT PRN; Protocol PRN Reason: Hypoglycemia Protocol Haloperidol (Haldol) 2 mg PO Q1H PRN PRN Reason: agitation 4x/24h Last Admin: 05/26/17 00:44 Dose: 2 mg Hydroxyzine HCl (Atarax) 25 mg PO Q6 PRN PRN Reason: Agitation Last Admin: 05/27/17 11:57 Dose: 25 mg Insulin Glargine (Lantus) 20 unit SC HS [facility] Insulin Human Regular (Novolin R) 0 unit SC [facility] PRN Reason: Protocol Last Admin: 05/27/17 11:52 Dose: 4 unit Pantoprazole Sodium (Protonix Ec Tab) 40 mg PO DAILY [facility] Last Admin: 05/27/17 09:58 Dose: 40 mg Potassium Chloride (K-Dur 20 Meq Er Tab) 20 meq PO ONCE ONE Stop: 05/27/17 15:29 Risperidone (Risperdal Tab) 1 mg PO [facility] Last Admin: 05/26/17 21:57 Dose: 1 mg Trazodone HCl (Desyrel) 50 mg PO [facility] Last Admin: 05/18/17 21:49 Dose: 50 mg Zolpidem Tartrate (Ambien) 5 mg PO HS PRN PRN Reason: Insomnia Stop: 05/29/17 23:00 Last Admin: 05/26/17 21:56 Dose: 5 mg - Labs Labs: 05/27/17 08:34 05/27/17 08:34 Attending/Attestation - Attestation I have personally seen and examined this patient.: Yes I have fully participated in the care of the patient.: Yes I have reviewed all pertinent clinical information, including history, physical exam and plan: Yes Notes (Text): Patient was seen and examined c/o Insomnia Her sugar is high. She is on Lantus 10units bedtime. Her HA1c is 10. I will increase her Lantus to 15 units. Discussed about sugar control Patient was taking oral meds.Doen't know what she was on it. I will add metformin continue current meds including Ambien RICHARDN. I agree with the resident's documentation
[2017-05-27] MEDS: (Novolin R) Insulin Human Regular 100 units/ml vial SC SCH ×4 (07:44→21:40)
[2017-05-27 08:47] LABS: BASO % 0.4 % (0.0-2.0); EOS # 0.1 K/uL (0.0-0.7); EOS % 1.8 % (0.0-4.0); HEMOGLOBIN 12.3 g/dL (11.0-16.0); LYMPH # 1.8 K/uL (1.0-4.3); LYMPH % 30.2 % (20.0-40.0); MEAN CELL VOLUME 83.7 fL (81.0-99.0); MEAN CORPUSCULAR HEMOGLOBIN 28.6 pg (27.0-31.0); MEAN CORPUSCULAR HGB CONC 34.2 g/dL (33.0-37.0); MEAN PLATELET VOLUME 9.5 fL (7.2-11.7); MONO # 0.5 K/uL (0.0-0.8); MONO % 8.3 % (0.0-10.0); NEUT # 3.5 K/uL (1.8-7.0); NEUT % 59.3 % (50.0-75.0); RBC 4.29 Mil/uL (3.80-5.20); RED CELL DISTRIBUTION WIDTH 13.1 % (11.5-14.5); WHITE BLOOD COUNT 5.9 K/uL (4.8-10.8)
[2017-05-27 09:38] LABS: ALBUMIN 3.5 g/dL (3.5-5.0); ALT/SGPT 30 U/L (9-52); AST/SGOT 26 U/L (14-36); BLOOD UREA NITROGEN 18 mg/dL (7-17); CALCIUM 9.1 mg/dl (8.6-10.4); GFR AFRICAN-AMERICAN > 60; GFR NON-AFRICAN AMERICAN > 60; MAGNESIUM 1.8 mg/dL (1.6-2.3)
[2017-05-27] MEDS: Pantoprazole 40 mg EC Tab PO SCH (09:58)
[2017-05-27] MEDS: Divalproex 250 mg DR Tab PO SCH ×3 (09:59→21:33)
[2017-05-27] MEDS ORDERED: Potassium Chloride 20 mEq ER Tab PO ONE (15:28)
[2017-05-27] MEDS: (Lantus) Insulin Glargine, Recombinant SC SCH (21:39)
[2017-05-27] MEDS ORDERED: (Lantus) Insulin Glargine, Recombinant SC SCH (22:00)
[2017-05-28] MEDS: (Novolin R) Insulin Human Regular 100 units/ml vial SC SCH ×4 (08:50→21:46)
[2017-05-28] MEDS: Pantoprazole 40 mg EC Tab PO SCH (09:01)
[2017-05-28] MEDS: Divalproex 250 mg DR Tab PO SCH ×3 (09:15→21:44)
--- NOTE | 2017-05-28 13:32 | CP.PCM.PN ---
<Luz Strong - Last Filed: 05/28/17 13:30> Subjective - Date & Time of Evaluation Date of Evaluation: 05/28/17 Time of Evaluation: 09:00 - Subjective Subjective: Medicine Note for Hospitalist Service- Dr. Choe Patient was seen and examined at bedside. No acute complaints. Case was able to get in contact with family. Arrangements are being made to have patient discharged to a [facility] facility. No acute complaints. Denied fever, chills, headache, chest pain, abdominal pain, n/v/d/c, or urinary symptoms. Objective - Vital Signs/Intake and Output Vital Signs (last 24 hours): Temp Pulse Resp BP Pulse Ox 98.6 F 74 20 141/82 95 05/28/17 07:39 05/28/17 07:39 05/28/17 07:39 05/28/17 07:39 05/28/17 07:39 Intake and Output: 05/28/17 05/28/17 06:59 18:59 Intake Total 800 Balance 800 - Medications Medications: Current Medications Benztropine Mesylate (Cogentin) 1 mg PO [facility] Last Admin: 05/27/17 21:33 Dose: 1 mg Dextrose (Dextrose 50% Inj) 0 ml IV STAT PRN; Protocol PRN Reason: Hypoglycemia Protocol Dextrose (Glutose 15) 0 gm PO ONCE PRN; Protocol PRN Reason: Hypoglycemia Protocol Divalproex Sodium (Depakote Dr) 250 mg PO [facility] Last Admin: 05/27/17 21:33 Dose: 250 mg Divalproex Sodium (Depakote Dr) 250 mg PO BID [facility] Last Admin: 05/28/17 09:15 Dose: 250 mg Gabapentin (Neurontin) 100 mg PO TID [facility] Last Admin: 05/28/17 09:01 Dose: 100 mg Glucagon (Glucagen Diagnostic Kit) 0 mg IM STAT PRN; Protocol PRN Reason: Hypoglycemia Protocol Haloperidol (Haldol) 2 mg PO Q1H PRN PRN Reason: agitation 4x/24h Last Admin: 05/26/17 00:44 Dose: 2 mg Hydroxyzine HCl (Atarax) 25 mg PO Q6 PRN PRN Reason: Agitation Last Admin: 05/27/17 11:57 Dose: 25 mg Insulin Glargine (Lantus) 15 unit SC [facility] Last Admin: 05/27/17 21:39 Dose: 15 units Insulin Human Regular (Novolin R) 0 unit SC [facility] PRN Reason: Protocol Last Admin: 05/28/17 12:30 Dose: 6 unit Metformin HCl (Glucophage) 500 mg PO BID [facility] Last Admin: 05/28/17 09:03 Dose: 500 mg Pantoprazole Sodium (Protonix Ec Tab) 40 mg PO DAILY [facility] Last Admin: 05/28/17 09:01 Dose: 40 mg Risperidone (Risperdal Tab) 1 mg PO HS [facility] Last Admin: 05/27/17 21:33 Dose: 1 mg Trazodone HCl (Desyrel) 50 mg PO HS [facility] Last Admin: 05/18/17 21:49 Dose: 50 mg Zolpidem Tartrate (Ambien) 5 mg PO HS PRN PRN Reason: Insomnia Stop: 05/29/17 23:00 Last Admin: 05/27/17 21:33 Dose: 5 mg - Labs Labs: 05/27/17 08:34 05/27/17 08:34 - Additional Findings Additional findings: - Head Exam Head Exam: ATRAUMATIC, NORMAL INSPECTION, NORMOCEPHALIC - Eye Exam Eye Exam: EOMI, Normal appearance, PERRL. absent: Periorbital tenderness Pupil Exam: NORMAL ACCOMODATION, PERRL. absent: Irregular, Unequal - ENT Exam ENT Exam: Mucous Membranes Moist, Normal Oropharynx - Neck Exam Neck Exam: Normal Inspection. absent: Lymphadenopathy, Thyromegaly - Respiratory Exam Respiratory Exam: Clear to Ausculation Bilateral, NORMAL BREATHING PATTERN. absent: Chest Wall Tenderness, Prolonged Expiratory Phase, Respiratory Distress - Cardiovascular Exam Cardiovascular Exam: REGULAR RHYTHM, +S1, +S2 - GI/Abdominal Exam GI & Abdominal Exam: Soft, Normal Bowel Sounds. absent: Rigid, Hyperactive Bowel Sounds - Extremities Exam Extremities Exam: Full ROM. absent: Joint Swelling, Pedal Edema, Tenderness - Back Exam Back Exam: NORMAL INSPECTION. absent: CVA tenderness (L), CVA tenderness (R), paraspinal tenderness - Neurological Exam Neurological Exam: Alert, Awake, CN II-XII Intact - Psychiatric Exam Psychiatric exam: Normal Affect, Normal Mood - Skin Skin Exam: Dry, Intact Assessment and Plan - Assessment and Plan (Free Text) Plan: Polysubstance Abuse in the setting of Bipolar Disorder with psychotic features 1:1 for observation Psychiatry recs: Cogentin 1mg PO HS Gabapentin 300mg PO TID Hydroxyzine 25mg PO Q6 prn Ativan 1mg PO Q6 prn Ativan 0.5 mg PO Q6 prn Risperidone 1mg PO HS Depakote 250 mg PO BID Depakote 250 mg PO HS Atarax 25 mg PO Q6 prn UDS positive for benzos Patient was found taking more medications than she was being given in rehab. Apparently other people were bringing meds and alcohol into the facility. Patient denies. She actually says that they have been taking medications from her. Diabetes Accuchecks ACHS ISS Lantus 10 units HS Hypoglycemia protocol Hgba1c 10 lipid panel unremarkable Unsteady Gait and diffuse pain Patient can only ambulate with walker and needs assistance Resumed MISA medication Percocet 5/325 Q8H prn Continue Oxycontin 20 mg PO Q12H PR[facility] PT on board UTI _ RESOLVED + nitrate and WBC Urine cultures grew E. coli. Limited in what can be given since patient refusing IV access. Repeat UC 05/20/17 - no growth up to date Macrobid 100 mg PO Q12 since 05/13/17 - 05/22/17 - to complete 10 day course Prophylactic Measures SCDS, VTE contraindicated due to thrombocytopenic Protonix 40mg PO daily PT/OT- recommend MISA but patient's insurance does not have anymore MISA days Diabetic diet Disposition: Case management was able to get in contact with family. Plans are for a [facility] facility - pending Medicaid renewalapproval for discharge. Labs will be drawn every 4 days until discharge. DW Ligia Londono DO, PGY-1 <Mynor Choe - Last Filed: 05/28/17 14:22> Objective - Vital Signs/Intake and Output Vital Signs (last 24 hours): Temp Pulse Resp BP Pulse Ox 98.6 F 74 20 141/82 95 05/28/17 07:39 05/28/17 07:39 05/28/17 07:39 05/28/17 07:39 05/28/17 07:39 Intake and Output: 05/28/17 05/28/17 06:59 18:59 Intake Total 800 Balance 800 - Medications Medications: Current Medications Benztropine Mesylate (Cogentin) 1 mg PO HS [facility] Last Admin: 05/27/17 21:33 Dose: 1 mg Dextrose (Dextrose 50% Inj) 0 ml IV STAT PRN; Protocol PRN Reason: Hypoglycemia Protocol Dextrose (Glutose 15) 0 gm PO ONCE PRN; Protocol PRN Reason: Hypoglycemia Protocol Divalproex Sodium (Depakote Dr) 250 mg PO HS [facility] Last Admin: 05/27/17 21:33 Dose: 250 mg Divalproex Sodium (Depakote Dr) 250 mg PO BID [facility] Last Admin: 05/28/17 09:15 Dose: 250 mg Gabapentin (Neurontin) 100 mg PO TID [facility] Last Admin: 05/28/17 13:56 Dose: 100 mg Glucagon (Glucagen Diagnostic Kit) 0 mg IM STAT PRN; Protocol PRN Reason: Hypoglycemia Protocol Haloperidol (Haldol) 2 mg PO Q1H PRN PRN Reason: agitation 4x/24h Last Admin: 05/26/17 00:44 Dose: 2 mg Hydroxyzine HCl (Atarax) 25 mg PO Q6 PRN PRN Reason: Agitation Last Admin: 05/27/17 11:57 Dose: 25 mg Insulin Glargine (Lantus) 15 unit SC [facility] Last Admin: 05/27/17 21:39 Dose: 15 units Insulin Human Regular (Novolin R) 0 unit SC [facility] PRN Reason: Protocol Last Admin: 05/28/17 12:30 Dose: 6 unit Metformin HCl (Glucophage) 500 mg PO BID [facility] Last Admin: 05/28/17 09:03 Dose: 500 mg Pantoprazole Sodium (Protonix Ec Tab) 40 mg PO DAILY [facility] Last Admin: 05/28/17 09:01 Dose: 40 mg Risperidone (Risperdal Tab) 1 mg PO [facility] Last Admin: 05/27/17 21:33 Dose: 1 mg Trazodone HCl (Desyrel) 50 mg PO HS [facility] Last Admin: 05/18/17 21:49 Dose: 50 mg Zolpidem Tartrate (Ambien) 5 mg PO HS PRN PRN Reason: Insomnia Stop: 05/29/17 23:00 Last Admin: 05/27/17 21:33 Dose: 5 mg - Labs Labs: 05/27/17 08:34 05/27/17 08:34 Attending/Attestation - Attestation I have personally seen and examined this patient.: Yes I have fully participated in the care of the patient.: Yes I have reviewed all pertinent clinical information, including history, physical exam and plan: Yes Notes (Text): 05/28/17 14:22 Medical attending: Patient was seen and examined by me, I saw the patient together with the medical center director and agree with the above note by the resident. As reported above in the resident note last week the hoisting laborer was able to get in contact with the patient's family. The patient also stated that her family members to come to the hospital. So this moment were just waiting on arrangements so that hopefully she can go to a long-term facility. Thank you very much, Mynor Choe
[2017-05-28] MEDS: (Lantus) Insulin Glargine, Recombinant SC SCH (21:46)
[2017-05-29] MEDS: (Novolin R) Insulin Human Regular 100 units/ml vial SC SCH ×4 (08:33→21:53)
--- NOTE | 2017-05-29 09:25 | CP.PCM.PN ---
<Luz Strong - Last Filed: 05/29/17 09:23> Subjective - Date & Time of Evaluation Date of Evaluation: 05/29/17 Time of Evaluation: 09:00 - Subjective Subjective: Medicine Note for Hospitalist Service- Dr. Choe Patient was seen and examined at bedside. No acute complaints. Case was able to get in contact with family. Arrangements are being made to have patient discharged to a technician terminal and repeater facility. No acute complaints. Denied fever, chills, headache, chest pain, abdominal pain, n/v/d/c, or urinary symptoms. Objective - Vital Signs/Intake and Output Vital Signs (last 24 hours): Temp Pulse Resp BP Pulse Ox 98.9 F 77 20 155/79 H 96 05/29/17 07:33 05/29/17 07:33 05/29/17 07:33 05/29/17 07:33 05/29/17 07:33 Intake and Output: 05/29/17 05/29/17 06:59 18:59 Intake Total 400 Balance 400 - Medications Medications: Current Medications Benztropine Mesylate (Cogentin) 1 mg PO [facility] Last Admin: 05/28/17 21:45 Dose: 1 mg Dextrose (Dextrose 50% Inj) 0 ml IV STAT PRN; Protocol PRN Reason: Hypoglycemia Protocol Dextrose (Glutose 15) 0 gm PO ONCE PRN; Protocol PRN Reason: Hypoglycemia Protocol Divalproex Sodium (Depakote Dr) 250 mg PO [facility] Last Admin: 05/28/17 21:44 Dose: 250 mg Divalproex Sodium (Depakote Dr) 250 mg PO BID [facility] Last Admin: 05/28/17 17:49 Dose: 250 mg Gabapentin (Neurontin) 100 mg PO TID [facility] Last Admin: 05/28/17 17:49 Dose: 100 mg Glucagon (Glucagen Diagnostic Kit) 0 mg IM STAT PRN; Protocol PRN Reason: Hypoglycemia Protocol Haloperidol (Haldol) 2 mg PO Q1H PRN PRN Reason: agitation 4x/24h Last Admin: 05/29/17 03:30 Dose: 2 mg Hydroxyzine HCl (Atarax) 25 mg PO Q6 PRN PRN Reason: Agitation Last Admin: 05/27/17 11:57 Dose: 25 mg Insulin Glargine (Lantus) 15 unit SC [facility] Last Admin: 05/28/17 21:46 Dose: 15 units Insulin Human Regular (Novolin R) 0 unit SC [facility] PRN Reason: Protocol Last Admin: 05/29/17 08:33 Dose: 4 unit Metformin HCl (Glucophage) 500 mg PO BID [facility] Last Admin: 05/28/17 17:49 Dose: 500 mg Pantoprazole Sodium (Protonix Ec Tab) 40 mg PO DAILY [facility] Last Admin: 05/28/17 09:01 Dose: 40 mg Risperidone (Risperdal Tab) 1 mg PO HS [facility] Last Admin: 05/28/17 21:44 Dose: 1 mg Trazodone HCl (Desyrel) 50 mg PO HS [facility] Last Admin: 05/28/17 21:45 Dose: 50 mg Zolpidem Tartrate (Ambien) 5 mg PO HS PRN PRN Reason: Insomnia Stop: 05/29/17 23:00 Last Admin: 05/27/17 21:33 Dose: 5 mg - Labs Labs: 05/27/17 08:34 05/27/17 08:34 - Additional Findings Additional findings: - Head Exam Head Exam: ATRAUMATIC, NORMAL INSPECTION, NORMOCEPHALIC - Eye Exam Eye Exam: EOMI, Normal appearance, PERRL. absent: Periorbital tenderness Pupil Exam: NORMAL ACCOMODATION, PERRL. absent: Irregular, Unequal - ENT Exam ENT Exam: Mucous Membranes Moist, Normal Oropharynx - Neck Exam Neck Exam: Normal Inspection. absent: Lymphadenopathy, Thyromegaly - Respiratory Exam Respiratory Exam: Clear to Ausculation Bilateral, NORMAL BREATHING PATTERN. absent: Chest Wall Tenderness, Prolonged Expiratory Phase, Respiratory Distress - Cardiovascular Exam Cardiovascular Exam: REGULAR RHYTHM, +S1, +S2 - GI/Abdominal Exam GI & Abdominal Exam: Soft, Normal Bowel Sounds. absent: Rigid, Hyperactive Bowel Sounds - Extremities Exam Extremities Exam: Full ROM. absent: Joint Swelling, Pedal Edema, Tenderness - Back Exam Back Exam: NORMAL INSPECTION. absent: CVA tenderness (L), CVA tenderness (R), paraspinal tenderness - Neurological Exam Neurological Exam: Alert, Awake, CN II-XII Intact - Psychiatric Exam Psychiatric exam: Normal Affect, Normal Mood - Skin Skin Exam: Dry, Intact Assessment and Plan - Assessment and Plan (Free Text) Plan: Polysubstance Abuse in the setting of Bipolar Disorder with psychotic features 1:1 for observation Psychiatry recs: Cogentin 1mg PO HS Gabapentin 300mg PO TID Hydroxyzine 25mg PO Q6 prn Ativan 1mg PO Q6 prn Ativan 0.5 mg PO Q6 prn Risperidone 1mg PO HS Depakote 250 mg PO BID Depakote 250 mg PO HS Atarax 25 mg PO Q6 prn UDS positive for benzos Patient was found taking more medications than she was being given in rehab. Apparently other people were bringing meds and alcohol into the facility. Patient denies. She actually says that they have been taking medications from her. Diabetes Accuchecks ACHS ISS Lantus 10 units HS Hypoglycemia protocol Hgba1c 10 lipid panel unremarkable Unsteady Gait and diffuse pain Patient can only ambulate with walker and needs assistance Resumed MISA medication Percocet 5/325 Q8H prn Continue Oxycontin 20 mg PO Q12H PRABHA PT on board UTI _ RESOLVED + nitrate and WBC Urine cultures grew E. coli. Limited in what can be given since patient refusing IV access. Repeat UC 05/20/17 - no growth up to date Macrobid 100 mg PO Q12 since 05/13/17 - 05/22/17 - to complete 10 day course Prophylactic Measures SCDS, VTE contraindicated due to thrombocytopenic Protonix 40mg PO daily PT/OT- recommend MISA but patient's insurance does not have anymore MISA days Diabetic diet Disposition: Case management was able to get in contact with family. Plans are for a technician terminal and repeater facility - pending Medicaid renewal for discharge. Labs will be drawn every 4 days until discharge. DW Ligia Londono DO, PGY-1 <Mynor Choe H - Last Filed: 05/29/17 14:31> Objective - Vital Signs/Intake and Output Vital Signs (last 24 hours): Temp Pulse Resp BP Pulse Ox 98.9 F 77 20 155/79 H 96 05/29/17 07:33 05/29/17 07:33 05/29/17 07:33 05/29/17 07:33 05/29/17 07:33 Intake and Output: 05/29/17 05/29/17 06:59 18:59 Intake Total 400 600 Balance 400 600 - Medications Medications: Current Medications Benztropine Mesylate (Cogentin) 1 mg PO HS [facility] Last Admin: 05/28/17 21:45 Dose: 1 mg Dextrose (Dextrose 50% Inj) 0 ml IV STAT PRN; Protocol PRN Reason: Hypoglycemia Protocol Dextrose (Glutose 15) 0 gm PO ONCE PRN; Protocol PRN Reason: Hypoglycemia Protocol Divalproex Sodium (Depakote Dr) 250 mg PO HS [facility] Last Admin: 05/28/17 21:44 Dose: 250 mg Divalproex Sodium (Depakote Dr) 250 mg PO BID [facility] Last Admin: 05/29/17 14:20 Dose: 250 mg Gabapentin (Neurontin) 100 mg PO TID [facility] Last Admin: 05/29/17 14:19 Dose: 100 mg Glucagon (Glucagen Diagnostic Kit) 0 mg IM STAT PRN; Protocol PRN Reason: Hypoglycemia Protocol Haloperidol (Haldol) 2 mg PO Q1H PRN PRN Reason: agitation 4x/24h Last Admin: 05/29/17 03:30 Dose: 2 mg Hydroxyzine HCl (Atarax) 25 mg PO Q6 PRN PRN Reason: Agitation Last Admin: 05/27/17 11:57 Dose: 25 mg Insulin Glargine (Lantus) 15 unit SC [facility] Last Admin: 05/28/17 21:46 Dose: 15 units Insulin Human Regular (Novolin R) 0 unit SC [facility] PRN Reason: Protocol Last Admin: 05/29/17 11:46 Dose: 6 unit Lorazepam (Ativan) 0.5 mg PO Q6 PRN PRN Reason: Anxiety Last Admin: 05/29/17 14:19 Dose: 0.5 mg Metformin HCl (Glucophage) 500 mg PO BID [facility] Last Admin: 05/29/17 13:36 Dose: Not Given Pantoprazole Sodium (Protonix Ec Tab) 40 mg PO DAILY [facility] Last Admin: 05/29/17 14:19 Dose: 40 mg Trazodone HCl (Desyrel) 50 mg PO HS [facility] Last Admin: 05/28/17 21:45 Dose: 50 mg Zolpidem Tartrate (Ambien) 5 mg PO HS PRN PRN Reason: Insomnia Stop: 05/29/17 23:00 Last Admin: 05/27/17 21:33 Dose: 5 mg - Labs Labs: 05/27/17 08:34 05/27/17 08:34 Attending/Attestation - Attestation I have personally seen and examined this patient.: Yes I have fully participated in the care of the patient.: Yes I have reviewed all pertinent clinical information, including history, physical exam and plan: Yes Notes (Text): 05/29/17 14:31 Medical attending: Patient was seen and examined by me, agree with the above the resident. At this time is no change in the current situation, were still trying to pending Medicaid approval. As documented before we have been able to get in contact with the family, the patient says that one of her family members did come and visit her as well. Other than this I don't have much new news to report Yesterday we added on trazodone because she was having a lot of insomnia complaints thank you Mynor Choe
[2017-05-29] MEDS: Divalproex 250 mg DR Tab PO SCH ×4 (11:25→21:56)
[2017-05-29] MEDS: Pantoprazole 40 mg EC Tab PO SCH ×2 (11:26→14:19)
--- NOTE | 2017-05-29 13:47 | PCM.PYCHPN ---
Psychiatric Progress Note - Psychiatric Progress Note Patient seen today, length of contact: 15 min Patient Chief Complaint: " I am a nervous wreck" Problems Identified/Issues Discussed: Patient seen and evaluated, chart reviewed and discussed with the nurse. Patient was seen and examined at bedside. The patient reports that her anxiety is worse and that she not sleeping. She reports that she is up all night and sleeps only a couple hours in the morning. The patient reports that they are not giving her the medications that she was taking at home which were Zoloft for sleeping and Xanax 5 mg every 8 hours. She reports that these medications were prescribed by her primary care doctor who eventually told her that she needs to see a psychiatrist. Supportive therapy and psychoeducation were given. Medication Change: Yes Medical Record Reviewed: Yes Mental Status Examination - Cognitive Function Orientation: Person, Place, Situation, Time Memory: Intact Attention: WNL Concentration: WNL Association: WNL Fund of Knowledge: WNL - Mood Mood: Anxious - Affect Affect: Broad - Speech Speech: Appropriate - Language Language: Word Retrieval - Formal Thought Process Formal Thought Process: No Impairment - Suicidal Ideation Suicidal Ideation: No - Homicidal Ideation Homicidal Ideation: No Goal/Treatment Plan - Goal/Treatment Plan Need for Continued Stay: Remain at risks for inpatient hospitalization, Discharge may exacerbated symptoms Progress Toward Problem(s) and Goals/Treatment Plan: Bipolar disorder mixed severe with psychotic features Trazodone 50 mg by mouth daily at bedtime Neurontin 100 mg by mouth 3 times a day Depakote 250 mg PO BID Risperdal 1 mg PO QHS Trazodone 50 mg PO QHS Generalized anxiety disorder Sedative/hypnotic use disorder severe Ativan when necessary
[2017-05-29] MEDS: (Lantus) Insulin Glargine, Recombinant SC SCH (21:56)
--- NOTE | 2017-05-30 07:29 | CP.PCM.PN ---
<Luz Strong - Last Filed: 05/30/17 07:28> Subjective - Date & Time of Evaluation Date of Evaluation: 05/30/17 Time of Evaluation: 07:00 - Subjective Subjective: Medicine Note for Hospitalist Service- Dr. Choe Patient was seen and examined at bedside. No acute complaints. Case was able to get in contact with family. Arrangements are being made to have patient discharged to a terminal make up operator facility. No acute complaints. Denied fever, chills, headache, chest pain, abdominal pain, n/v/d/c, or urinary symptoms. Objective - Vital Signs/Intake and Output Vital Signs (last 24 hours): Temp Pulse Resp BP Pulse Ox 98.5 F 71 20 148/82 94 L 05/30/17 01:00 05/30/17 01:00 05/30/17 01:00 05/30/17 01:00 05/30/17 01:00 Intake and Output: 05/30/17 05/30/17 06:59 18:59 Intake Total 480 Output Total 3 Balance 477 - Medications Medications: Current Medications Benztropine Mesylate (Cogentin) 1 mg PO [facility] Last Admin: 05/29/17 21:56 Dose: 1 mg Dextrose (Dextrose 50% Inj) 0 ml IV STAT PRN; Protocol PRN Reason: Hypoglycemia Protocol Dextrose (Glutose 15) 0 gm PO ONCE PRN; Protocol PRN Reason: Hypoglycemia Protocol Divalproex Sodium (Depakote Dr) 250 mg PO [facility] Last Admin: 05/29/17 21:56 Dose: 250 mg Divalproex Sodium (Depakote Dr) 250 mg PO BID [facility] Last Admin: 05/29/17 18:27 Dose: 250 mg Gabapentin (Neurontin) 100 mg PO TID [facility] Last Admin: 05/29/17 17:07 Dose: 100 mg Glucagon (Glucagen Diagnostic Kit) 0 mg IM STAT PRN; Protocol PRN Reason: Hypoglycemia Protocol Haloperidol (Haldol) 2 mg PO Q1H PRN PRN Reason: agitation 4x/24h Last Admin: 05/29/17 03:30 Dose: 2 mg Hydroxyzine HCl (Atarax) 25 mg PO Q6 PRN PRN Reason: Agitation Last Admin: 05/27/17 11:57 Dose: 25 mg Insulin Glargine (Lantus) 15 unit SC [facility] Last Admin: 05/29/17 21:56 Dose: 15 units Insulin Human Regular (Novolin R) 0 unit SC [facility] PRN Reason: Protocol Last Admin: 05/29/17 21:53 Dose: Not Given Lorazepam (Ativan) 0.5 mg PO Q6 PRN PRN Reason: Anxiety Last Admin: 05/29/17 14:19 Dose: 0.5 mg Metformin HCl (Glucophage) 500 mg PO BID [facility] Last Admin: 05/29/17 17:07 Dose: 500 mg Pantoprazole Sodium (Protonix Ec Tab) 40 mg PO DAILY [facility] Last Admin: 05/29/17 14:19 Dose: 40 mg Trazodone HCl (Desyrel) 50 mg PO HS [facility] Last Admin: 05/29/17 21:56 Dose: 50 mg - Labs Labs: 05/27/17 08:34 05/27/17 08:34 - Additional Findings Additional findings: - Head Exam Head Exam: ATRAUMATIC, NORMAL INSPECTION, NORMOCEPHALIC - Eye Exam Eye Exam: EOMI, Normal appearance, PERRL. absent: Periorbital tenderness Pupil Exam: NORMAL ACCOMODATION, PERRL. absent: Irregular, Unequal - ENT Exam ENT Exam: Mucous Membranes Moist, Normal Oropharynx - Neck Exam Neck Exam: Normal Inspection. absent: Lymphadenopathy, Thyromegaly - Respiratory Exam Respiratory Exam: Clear to Ausculation Bilateral, NORMAL BREATHING PATTERN. absent: Chest Wall Tenderness, Prolonged Expiratory Phase, Respiratory Distress - Cardiovascular Exam Cardiovascular Exam: REGULAR RHYTHM, +S1, +S2 - GI/Abdominal Exam GI & Abdominal Exam: Soft, Normal Bowel Sounds. absent: Rigid, Hyperactive Bowel Sounds - Extremities Exam Extremities Exam: Full ROM. absent: Joint Swelling, Pedal Edema, Tenderness - Back Exam Back Exam: NORMAL INSPECTION. absent: CVA tenderness (L), CVA tenderness (R), paraspinal tenderness - Neurological Exam Neurological Exam: Alert, Awake, CN II-XII Intact - Psychiatric Exam Psychiatric exam: Normal Affect, Normal Mood - Skin Skin Exam: Dry, Intact Assessment and Plan - Assessment and Plan (Free Text) Plan: Polysubstance Abuse in the setting of Bipolar Disorder with psychotic features 1:1 for observation Psychiatry recs: Cogentin 1mg PO HS Gabapentin 300mg PO TID Hydroxyzine 25mg PO Q6 prn Ativan 1mg PO Q6 prn Ativan 0.5 mg PO Q6 prn Risperidone 1mg PO HS Depakote 250 mg PO BID Depakote 250 mg PO HS Atarax 25 mg PO Q6 prn UDS positive for benzos Patient was found taking more medications than she was being given in rehab. Apparently other people were bringing meds and alcohol into the facility. Patient denies. She actually says that they have been taking medications from her. Diabetes Accuchecks ACHS ISS Lantus 10 units HS Hypoglycemia protocol Hgba1c 10 lipid panel unremarkable Unsteady Gait and diffuse pain Patient can only ambulate with walker and needs assistance Resumed MISA medication Percocet 5/325 Q8H prn Continue Oxycontin 20 mg PO Q12H PR[facility] PT on board UTI _ RESOLVED + nitrate and WBC Urine cultures grew E. coli. Limited in what can be given since patient refusing IV access. Repeat UC 05/20/17 - no growth up to date Macrobid 100 mg PO Q12 since 05/13/17 - 05/22/17 - to complete 10 day course Prophylactic Measures SCDS, VTE contraindicated due to thrombocytopenic Protonix 40mg PO daily PT/OT- recommend MISA but patient's insurance does not have anymore MISA days Diabetic diet Disposition: Case management was able to get in contact with family. Plans are for a terminal make up operator facility - pending Medicaid renewal for discharge. Labs will be drawn every [address] DW Dr. Choe, Ligia TOMLINSON, PGY-1 <Mynor Choe - Last Filed: 05/30/17 16:56> Objective - Vital Signs/Intake and Output Vital Signs (last 24 hours): Temp Pulse Resp BP Pulse Ox 97.4 F L 81 20 128/66 97 05/30/17 15:15 05/30/17 15:15 05/30/17 15:15 05/30/17 15:15 05/30/17 15:15 Intake and Output: 05/30/17 05/30/17 06:59 18:59 Intake Total 480 480 Output Total 3 Balance 477 480 - Medications Medications: Current Medications Benztropine Mesylate (Cogentin) 1 mg PO HS [facility] Last Admin: 05/29/17 21:56 Dose: 1 mg Dextrose (Dextrose 50% Inj) 0 ml IV STAT PRN; Protocol PRN Reason: Hypoglycemia Protocol Dextrose (Glutose 15) 0 gm PO ONCE PRN; Protocol PRN Reason: Hypoglycemia Protocol Divalproex Sodium (Depakote Dr) 250 mg PO [facility] Last Admin: 05/29/17 21:56 Dose: 250 mg Divalproex Sodium (Depakote Dr) 250 mg PO BID [facility] Last Admin: 05/30/17 10:17 Dose: 250 mg Gabapentin (Neurontin) 100 mg PO TID [facility] Last Admin: 05/30/17 13:55 Dose: 100 mg Glucagon (Glucagen Diagnostic Kit) 0 mg IM STAT PRN; Protocol PRN Reason: Hypoglycemia Protocol Haloperidol (Haldol) 2 mg PO Q1H PRN PRN Reason: agitation 4x/24h Last Admin: 05/29/17 03:30 Dose: 2 mg Hydroxyzine HCl (Atarax) 25 mg PO Q6 PRN PRN Reason: Agitation Last Admin: 05/27/17 11:57 Dose: 25 mg Insulin Glargine (Lantus) 15 unit SC [facility] Last Admin: 05/29/17 21:56 Dose: 15 units Insulin Human Regular (Novolin R) 0 unit SC [facility] PRN Reason: Protocol Last Admin: 05/30/17 12:34 Dose: 2 unit Lorazepam (Ativan) 0.5 mg PO Q6 PRN PRN Reason: Anxiety Last Admin: 05/30/17 13:57 Dose: 0.5 mg Metformin HCl (Glucophage) 500 mg PO BID [facility] Last Admin: 05/30/17 10:21 Dose: 500 mg Pantoprazole Sodium (Protonix Ec Tab) 40 mg PO DAILY [facility] Last Admin: 05/30/17 10:17 Dose: 40 mg Trazodone HCl (Desyrel) 50 mg PO [facility] Last Admin: 05/29/17 21:56 Dose: 50 mg - Labs Labs: 05/27/17 08:34 05/27/17 08:34 Attending/Attestation - Attestation I have personally seen and examined this patient.: Yes I have fully participated in the care of the patient.: Yes I have reviewed all pertinent clinical information, including history, physical exam and plan: Yes Notes (Text): 05/30/17 16:56 Medical attending: Patient was seen and examined by me, agrees the above note by certified medical dosimetrist. The patient was awake and alert, she was complaining of pain in her lower extremities. This is not greatly different from before. In the meantime the overall situation is unchanged. Were still trying to get renewal of the patient's Medicaid before discharge When we spoke with the family she says that her family members were intending to possibly bring her home some time next week however she is not entirely sure this yet hopefully the family members will be able to bring her home if that's the case will try to get home PT if she qualifies for this. thank you Mynor Choe
[2017-05-30] MEDS: (Novolin R) Insulin Human Regular 100 units/ml vial SC SCH ×4 (09:30→21:34)
[2017-05-30] MEDS: Pantoprazole 40 mg EC Tab PO SCH (10:17)
[2017-05-30] MEDS: Divalproex 250 mg DR Tab PO SCH ×3 (10:17→21:30)
[2017-05-30] MEDS: (Lantus) Insulin Glargine, Recombinant SC SCH (21:30)
[2017-05-31 07:07] LABS: BASO % 0.2 % (0.0-2.0); EOS # 0.1 K/uL (0.0-0.7); EOS % 1.6 % (0.0-4.0); HEMOGLOBIN 12.7 g/dL (11.0-16.0); LYMPH # 1.9 K/uL (1.0-4.3); LYMPH % 29.9 % (20.0-40.0); MEAN CELL VOLUME 83.4 fL (81.0-99.0); MEAN CORPUSCULAR HEMOGLOBIN 28.5 pg (27.0-31.0); MEAN CORPUSCULAR HGB CONC 34.2 g/dL (33.0-37.0); MEAN PLATELET VOLUME 9.4 fL (7.2-11.7); MONO # 0.6 K/uL (0.0-0.8); MONO % 9.1 % (0.0-10.0); NEUT # 3.7 K/uL (1.8-7.0); NEUT % 59.2 % (50.0-75.0); RBC 4.44 Mil/uL (3.80-5.20); RED CELL DISTRIBUTION WIDTH 13.4 % (11.5-14.5); WHITE BLOOD COUNT 6.3 K/uL (4.8-10.8)
--- NOTE | 2017-05-31 07:11 | CP.PCM.PN ---
<Luz Strong - Last Filed: 05/31/17 07:05> Subjective - Date & Time of Evaluation Date of Evaluation: 05/31/17 Time of Evaluation: 07:00 - Subjective Subjective: Medicine Note for Hospitalist Service- Dr. Choe Patient was seen and examined at bedside. No acute complaints. Patient reports her daughter agreed to take the patient home on Sunday. She is currently making arrangements to be able to support the patient in her home. Case management will confirm this and we will plan accordingly. Denied fever, chills, headache, chest pain, abdominal pain, n/v/d/c, or urinary symptoms. Objective - Vital Signs/Intake and Output Vital Signs (last 24 hours): Temp Pulse Resp BP Pulse Ox 98.6 F 89 20 138/79 96 05/31/17 00:00 05/31/17 00:00 05/31/17 00:00 05/31/17 00:00 05/31/17 00:00 Intake and Output: 05/31/17 05/31/17 06:59 18:59 Intake Total 300 Output Total 300 Balance 0 - Medications Medications: Current Medications Benztropine Mesylate (Cogentin) 1 mg PO HS [facility] Last Admin: 05/30/17 21:30 Dose: 1 mg Dextrose (Dextrose 50% Inj) 0 ml IV STAT PRN; Protocol PRN Reason: Hypoglycemia Protocol Dextrose (Glutose 15) 0 gm PO ONCE PRN; Protocol PRN Reason: Hypoglycemia Protocol Divalproex Sodium (Depakote Dr) 250 mg PO HS [facility] Last Admin: 05/30/17 21:30 Dose: 250 mg Divalproex Sodium (Depakote Dr) 250 mg PO BID [facility] Last Admin: 05/30/17 17:07 Dose: 250 mg Gabapentin (Neurontin) 100 mg PO TID [facility] Last Admin: 05/30/17 17:07 Dose: 100 mg Glucagon (Glucagen Diagnostic Kit) 0 mg IM STAT PRN; Protocol PRN Reason: Hypoglycemia Protocol Haloperidol (Haldol) 2 mg PO Q1H PRN PRN Reason: agitation 4x/24h Last Admin: 05/29/17 03:30 Dose: 2 mg Hydroxyzine HCl (Atarax) 25 mg PO Q6 PRN PRN Reason: Agitation Last Admin: 05/27/17 11:57 Dose: 25 mg Insulin Glargine (Lantus) 15 unit SC HS [facility] Last Admin: 05/30/17 21:30 Dose: 15 units Insulin Human Regular (Novolin R) 0 unit SC ACHS [facility] PRN Reason: Protocol Last Admin: 05/30/17 21:34 Dose: Not Given Lorazepam (Ativan) 0.5 mg PO Q6 PRN PRN Reason: Anxiety Last Admin: 05/30/17 13:57 Dose: 0.5 mg Metformin HCl (Glucophage) 500 mg PO BID [facility] Last Admin: 05/30/17 17:11 Dose: 500 mg Pantoprazole Sodium (Protonix Ec Tab) 40 mg PO DAILY [facility] Last Admin: 05/30/17 10:17 Dose: 40 mg Trazodone HCl (Desyrel) 50 mg PO [facility] Last Admin: 05/30/17 21:30 Dose: 50 mg - Labs Labs: 05/27/17 08:34 05/27/17 08:34 - Additional Findings Additional findings: - Head Exam Head Exam: ATRAUMATIC, NORMAL INSPECTION, NORMOCEPHALIC - Eye Exam Eye Exam: EOMI, Normal appearance, PERRL. absent: Periorbital tenderness Pupil Exam: NORMAL ACCOMODATION, PERRL. absent: Irregular, Unequal - ENT Exam ENT Exam: Mucous Membranes Moist, Normal Oropharynx - Neck Exam Neck Exam: Normal Inspection. absent: Lymphadenopathy, Thyromegaly - Respiratory Exam Respiratory Exam: Clear to Ausculation Bilateral, NORMAL BREATHING PATTERN. absent: Chest Wall Tenderness, Prolonged Expiratory Phase, Respiratory Distress - Cardiovascular Exam Cardiovascular Exam: REGULAR RHYTHM, +S1, +S2 - GI/Abdominal Exam GI & Abdominal Exam: Soft, Normal Bowel Sounds. absent: Rigid, Hyperactive Bowel Sounds - Extremities Exam Extremities Exam: Full ROM. absent: Joint Swelling, Pedal Edema, Tenderness - Back Exam Back Exam: NORMAL INSPECTION. absent: CVA tenderness (L), CVA tenderness (R), paraspinal tenderness - Neurological Exam Neurological Exam: Alert, Awake, CN II-XII Intact - Psychiatric Exam Psychiatric exam: Normal Affect, Normal Mood - Skin Skin Exam: Dry, Intact Assessment and Plan - Assessment and Plan (Free Text) Plan: Polysubstance Abuse in the setting of Bipolar Disorder with psychotic features 1:1 for observation Psychiatry recs: Cogentin 1mg PO HS Gabapentin 300mg PO TID Hydroxyzine 25mg PO Q6 prn Ativan 1mg PO Q6 prn Ativan 0.5 mg PO Q6 prn Risperidone 1mg PO HS Depakote 250 mg PO BID Depakote 250 mg PO HS Atarax 25 mg PO Q6 prn UDS positive for benzos Patient was found taking more medications than she was being given in rehab. Apparently other people were bringing meds and alcohol into the facility. Patient denies. She actually says that they have been taking medications from her. Diabetes Accuchecks ACHS ISS Lantus 10 units HS Hypoglycemia protocol Hgba1c 10 lipid panel unremarkable Unsteady Gait and diffuse pain Patient can only ambulate with walker and needs assistance Resumed MISA medication Percocet 5/325 Q8H prn Continue Oxycontin 20 mg PO Q12H PRABHA PT on board UTI _ RESOLVED + nitrate and WBC Urine cultures grew E. coli. Limited in what can be given since patient refusing IV access. Repeat UC 05/20/17 - no growth up to date Macrobid 100 mg PO Q12 since 05/13/17 - 05/22/17 - to complete 10 day course Prophylactic Measures SCDS, VTE contraindicated due to thrombocytopenic Protonix 40mg PO daily PT/OT- recommend MISA but patient's insurance does not have anymore MISA days Diabetic diet Disposition: Patient reports her daughter agreed to take the patient home on Sunday. She is currently making arrangements to be able to support the patient in her home. Case management will confirm this and we will plan accordingly. Pending medicaid renewal Labs will be drawn every 4 days until discharge. Ligia Johnson Dr., DO, PGY-1 <Mynor Choe - Last Filed: 05/31/17 12:51> Objective - Vital Signs/Intake and Output Vital Signs (last 24 hours): Temp Pulse Resp BP Pulse Ox 98.4 F 71 20 126/79 95 05/31/17 08:36 05/31/17 08:36 05/31/17 08:36 05/31/17 08:36 05/31/17 08:36 Intake and Output: 05/31/17 05/31/17 06:59 18:59 Intake Total 300 400 Output Total 300 Balance 0 400 - Medications Medications: Current Medications Benztropine Mesylate (Cogentin) 1 mg PO HS [facility] Last Admin: 05/30/17 21:30 Dose: 1 mg Dextrose (Dextrose 50% Inj) 0 ml IV STAT PRN; Protocol PRN Reason: Hypoglycemia Protocol Dextrose (Glutose 15) 0 gm PO ONCE PRN; Protocol PRN Reason: Hypoglycemia Protocol Divalproex Sodium (Depakote Dr) 250 mg PO HS [facility] Last Admin: 05/30/17 21:30 Dose: 250 mg Divalproex Sodium (Depakote Dr) 250 mg PO BID [facility] Last Admin: 05/31/17 09:12 Dose: 250 mg Gabapentin (Neurontin) 100 mg PO TID [facility] Last Admin: 05/31/17 09:12 Dose: 100 mg Glucagon (Glucagen Diagnostic Kit) 0 mg IM STAT PRN; Protocol PRN Reason: Hypoglycemia Protocol Haloperidol (Haldol) 2 mg PO Q1H PRN PRN Reason: agitation 4x/24h Last Admin: 05/29/17 03:30 Dose: 2 mg Hydroxyzine HCl (Atarax) 25 mg PO Q6 PRN PRN Reason: Agitation Last Admin: 05/27/17 11:57 Dose: 25 mg Insulin Glargine (Lantus) 15 unit SC [facility] Last Admin: 05/30/17 21:30 Dose: 15 units Insulin Human Regular (Novolin R) 0 unit SC [facility] PRN Reason: Protocol Last Admin: 05/31/17 12:09 Dose: 3 unit Lorazepam (Ativan) 0.5 mg PO Q6 PRN PRN Reason: Anxiety Last Admin: 05/30/17 13:57 Dose: 0.5 mg Metformin HCl (Glucophage) 500 mg PO BID [facility] Last Admin: 05/31/17 09:11 Dose: 500 mg Pantoprazole Sodium (Protonix Ec Tab) 40 mg PO DAILY [facility] Last Admin: 05/31/17 09:12 Dose: 40 mg Trazodone HCl (Desyrel) 50 mg PO [facility] Last Admin: 05/30/17 21:30 Dose: 50 mg - Labs Labs: 05/31/17 06:56 05/31/17 06:56 Attending/Attestation - Attestation I have personally seen and examined this patient.: Yes I have fully participated in the care of the patient.: Yes I have reviewed all pertinent clinical information, including history, physical exam and plan: Yes Notes (Text): 02/22/18 12:51 Medical attending: Patient was seen and examined by me, agrees the above note by the biomedical equipment technician. When we first met her she appeared calm and composed. She did not appear to be in any acute distress. However after we spoke for a while she then became very anxious, stressed appearing, and began crying she tells us that she really wants to leave from here, she is explains that her daughter came and the plan is to try to bring her home on Sunday is when the daughter is ready. Left reach out to the caseworkers to see if they could also confirm this. Thank you very much, Mynor Choe
[2017-05-31 07:25] LABS: ALB/GLOB RATIO 1.1 (1.0-2.1); ALBUMIN 3.5 g/dL (3.5-5.0); ALT/SGPT 28 U/L (9-52); AST/SGOT 21 U/L (14-36); BLOOD UREA NITROGEN 14 mg/dL (7-17); CALCIUM 8.8 mg/dl (8.6-10.4); GFR AFRICAN-AMERICAN > 60; GFR NON-AFRICAN AMERICAN > 60; MAGNESIUM 1.6 mg/dL (1.6-2.3)
[2017-05-31] MEDS: (Novolin R) Insulin Human Regular 100 units/ml vial SC SCH ×4 (07:55→23:07)
[2017-05-31] MEDS: Pantoprazole 40 mg EC Tab PO SCH (09:12)
[2017-05-31] MEDS: Divalproex 250 mg DR Tab PO SCH ×3 (09:12→22:14)
[2017-05-31] MEDS ORDERED: Potassium Chloride 20 mEq ER Tab PO ONE (10:00)
[2017-05-31] MEDS: (Lantus) Insulin Glargine, Recombinant SC SCH (22:14)
--- NOTE | 2017-06-01 07:32 | CP.PCM.PN ---
<Luz Strong - Last Filed: 06/01/17 07:31> Subjective - Date & Time of Evaluation Date of Evaluation: 06/01/17 Time of Evaluation: 07:00 - Subjective Subjective: Medicine Note for Hospitalist Service- Dr. Choe Patient was seen and examined at bedside. No acute complaints. Patient reports her daughter agreed to take the patient home on Sunday. She is currently making arrangements to be able to support the patient in her home. Case management will confirm this and we will plan accordingly. Denied fever, chills, headache, chest pain, abdominal pain, n/v/d/c, or urinary symptoms. Objective - Vital Signs/Intake and Output Vital Signs (last 24 hours): Temp Pulse Resp BP Pulse Ox 98.4 F 81 20 144/81 95 06/01/17 00:00 06/01/17 00:00 06/01/17 00:00 06/01/17 00:00 06/01/17 00:00 Intake and Output: 06/01/17 06/01/17 06:59 18:59 Intake Total 800 Balance 800 - Medications Medications: Current Medications Benztropine Mesylate (Cogentin) 1 mg PO HS [facility] Last Admin: 05/31/17 22:14 Dose: 1 mg Dextrose (Dextrose 50% Inj) 0 ml IV STAT PRN; Protocol PRN Reason: Hypoglycemia Protocol Dextrose (Glutose 15) 0 gm PO ONCE PRN; Protocol PRN Reason: Hypoglycemia Protocol Divalproex Sodium (Depakote Dr) 250 mg PO HS [facility] Last Admin: 05/31/17 22:14 Dose: 250 mg Divalproex Sodium (Depakote Dr) 250 mg PO BID [facility] Last Admin: 05/31/17 17:57 Dose: 250 mg Gabapentin (Neurontin) 100 mg PO TID [facility] Last Admin: 05/31/17 17:57 Dose: 100 mg Glucagon (Glucagen Diagnostic Kit) 0 mg IM STAT PRN; Protocol PRN Reason: Hypoglycemia Protocol Haloperidol (Haldol) 2 mg PO Q1H PRN PRN Reason: agitation 4x/24h Last Admin: 06/01/17 06:15 Dose: 2 mg Hydroxyzine HCl (Atarax) 25 mg PO Q6 PRN PRN Reason: Agitation Last Admin: 05/27/17 11:57 Dose: 25 mg Insulin Glargine (Lantus) 15 unit SC HS [facility] Last Admin: 05/31/17 22:14 Dose: 15 units Insulin Human Regular (Novolin R) 0 unit SC ACHS [facility] PRN Reason: Protocol Last Admin: 05/31/17 23:07 Dose: Not Given Lorazepam (Ativan) 0.5 mg PO Q6 PRN PRN Reason: Anxiety Last Admin: 05/30/17 13:57 Dose: 0.5 mg Metformin HCl (Glucophage) 500 mg PO BID [facility] Last Admin: 05/31/17 17:57 Dose: 500 mg Pantoprazole Sodium (Protonix Ec Tab) 40 mg PO DAILY [facility] Last Admin: 05/31/17 09:12 Dose: 40 mg Trazodone HCl (Desyrel) 50 mg PO [facility] Last Admin: 05/31/17 22:14 Dose: 50 mg - Labs Labs: 05/31/17 06:56 05/31/17 06:56 - Additional Findings Additional findings: - Head Exam Head Exam: ATRAUMATIC, NORMAL INSPECTION, NORMOCEPHALIC - Eye Exam Eye Exam: EOMI, Normal appearance, PERRL. absent: Periorbital tenderness Pupil Exam: NORMAL ACCOMODATION, PERRL. absent: Irregular, Unequal - ENT Exam ENT Exam: Mucous Membranes Moist, Normal Oropharynx - Neck Exam Neck Exam: Normal Inspection. absent: Lymphadenopathy, Thyromegaly - Respiratory Exam Respiratory Exam: Clear to Ausculation Bilateral, NORMAL BREATHING PATTERN. absent: Chest Wall Tenderness, Prolonged Expiratory Phase, Respiratory Distress - Cardiovascular Exam Cardiovascular Exam: REGULAR RHYTHM, +S1, +S2 - GI/Abdominal Exam GI & Abdominal Exam: Soft, Normal Bowel Sounds. absent: Rigid, Hyperactive Bowel Sounds - Extremities Exam Extremities Exam: Full ROM. absent: Joint Swelling, Pedal Edema, Tenderness - Back Exam Back Exam: NORMAL INSPECTION. absent: CVA tenderness (L), CVA tenderness (R), paraspinal tenderness - Neurological Exam Neurological Exam: Alert, Awake, CN II-XII Intact - Psychiatric Exam Psychiatric exam: Normal Affect, Normal Mood - Skin Skin Exam: Dry, Intact Assessment and Plan - Assessment and Plan (Free Text) Plan: Polysubstance Abuse in the setting of Bipolar Disorder with psychotic features 1:1 for observation Psychiatry recs: Cogentin 1mg PO HS Gabapentin 300mg PO TID Hydroxyzine 25mg PO Q6 prn Ativan 1mg PO Q6 prn Ativan 0.5 mg PO Q6 prn Risperidone 1mg PO HS Depakote 250 mg PO BID Depakote 250 mg PO HS Atarax 25 mg PO Q6 prn UDS positive for benzos Patient was found taking more medications than she was being given in rehab. Apparently other people were bringing meds and alcohol into the facility. Patient denies. She actually says that they have been taking medications from her. Diabetes Accuchecks ACHS ISS Lantus 10 units HS Hypoglycemia protocol Hgba1c 10 lipid panel unremarkable Unsteady Gait and diffuse pain Patient can only ambulate with walker and needs assistance Resumed MISA medication Percocet 5/325 Q8H prn Continue Oxycontin 20 mg PO Q12H [facility] PT on board UTI _ RESOLVED + nitrate and WBC Urine cultures grew E. coli. Limited in what can be given since patient refusing IV access. Repeat UC 05/20/17 - no growth up to date Macrobid 100 mg PO Q12 since 05/13/17 - 05/22/17 - to complete 10 day course Prophylactic Measures SCDS, VTE contraindicated due to thrombocytopenic Protonix 40mg PO daily PT/OT- recommend MISA but patient's insurance does not have anymore MISA days Diabetic diet Disposition: Patient reports her daughter agreed to take the patient home on Sunday. She is currently making arrangements to be able to support the patient in her home. Case management will confirm this and we will plan accordingly. Pending medicaid renewal Labs will be drawn every 4 days until discharge. Ligia Johnson Dr., DO, PGY-1 <Mynor Choe - Last Filed: 06/01/17 15:24> Objective - Vital Signs/Intake and Output Vital Signs (last 24 hours): Temp Pulse Resp BP Pulse Ox 98.4 F 81 20 144/81 95 06/01/17 00:00 06/01/17 00:00 06/01/17 00:00 06/01/17 00:00 06/01/17 00:00 Intake and Output: 06/01/17 06/01/17 06:59 18:59 Intake Total 800 1200 Balance 800 1200 - Medications Medications: Current Medications Benztropine Mesylate (Cogentin) 1 mg PO HS [facility] Last Admin: 05/31/17 22:14 Dose: 1 mg Dextrose (Dextrose 50% Inj) 0 ml IV STAT PRN; Protocol PRN Reason: Hypoglycemia Protocol Dextrose (Glutose 15) 0 gm PO ONCE PRN; Protocol PRN Reason: Hypoglycemia Protocol Divalproex Sodium (Depakote Dr) 250 mg PO HS [facility] Last Admin: 05/31/17 22:14 Dose: 250 mg Divalproex Sodium (Depakote Dr) 250 mg PO BID [facility] Last Admin: 06/01/17 11:05 Dose: 250 mg Gabapentin (Neurontin) 100 mg PO TID [facility] Last Admin: 06/01/17 13:54 Dose: 100 mg Glucagon (Glucagen Diagnostic Kit) 0 mg IM STAT PRN; Protocol PRN Reason: Hypoglycemia Protocol Haloperidol (Haldol) 2 mg PO Q1H PRN PRN Reason: agitation 4x/24h Last Admin: 06/01/17 06:15 Dose: 2 mg Hydroxyzine HCl (Atarax) 25 mg PO Q6 PRN PRN Reason: Agitation Last Admin: 05/27/17 11:57 Dose: 25 mg Insulin Glargine (Lantus) 15 unit SC [facility] Last Admin: 05/31/17 22:14 Dose: 15 units Insulin Human Regular (Novolin R) 0 unit SC [facility] PRN Reason: Protocol Last Admin: 06/01/17 11:40 Dose: 4 unit Lorazepam (Ativan) 0.5 mg PO Q6 PRN PRN Reason: Anxiety Last Admin: 05/30/17 13:57 Dose: 0.5 mg Metformin HCl (Glucophage) 500 mg PO BID [facility] Last Admin: 06/01/17 10:21 Dose: 500 mg Naproxen (Anaprox Ds) 550 mg PO BID [facility] Last Admin: 06/01/17 11:38 Dose: 550 mg Pantoprazole Sodium (Protonix Ec Tab) 40 mg PO DAILY [facility] Last Admin: 06/01/17 10:20 Dose: 40 mg Risperidone (Risperdal Tab) 1 mg PO QPM [facility] Trazodone HCl (Desyrel) 50 mg PO [facility] Last Admin: 05/31/17 22:14 Dose: 50 mg - Labs Labs: 05/31/17 06:56 05/31/17 06:56 Attending/Attestation - Attestation I have personally seen and examined this patient.: Yes I have fully participated in the care of the patient.: Yes I have reviewed all pertinent clinical information, including history, physical exam and plan: Yes Notes (Text): 06/01/17 15:24 Medical attending: Patient was seen and examined by me with the medical social worker. We saw the patient together during rounds. I'm afraid I don't have much new news to report. She again says her family is trying to bring her home this Sunday Also - like previous day she reported ongoing lower extremity pain. We will try to control the pain. Meanwhile she continues to work with PT and ambulate with the rolling walker Thank you very much, Mynor Choe
[2017-06-01] MEDS: Pantoprazole 40 mg EC Tab PO SCH (10:20)
[2017-06-01] MEDS: (Novolin R) Insulin Human Regular 100 units/ml vial SC SCH ×4 (10:21→21:55)
[2017-06-01] MEDS: Divalproex 250 mg DR Tab PO SCH ×3 (11:05→21:46)
[2017-06-01] MEDS: Naproxen 550 mg Tab PO SCH ×2 (11:38→17:28)
[2017-06-01] MEDS: (Lantus) Insulin Glargine, Recombinant SC SCH (21:51)
--- NOTE | 2017-06-02 04:34 | CP.PCM.PN ---
<Gonzalo Bryan E - Last Filed: 06/02/17 04:44> Subjective - Date & Time of Evaluation Date of Evaluation: 06/02/17 Time of Evaluation: 01:15 - Subjective Subjective: Medicine progress note ( Dr. Choe's service) Patient was seen and examined at bedside. Patient was sitting in bed comfortably and watching TV. Patient reports that she has no new or acute complaints. Patient denies fever, chills, headache, chest pain, abdominal pain , n/v/d/c, or urinary symptoms but still continues to complain of mild leg pain. Objective - Vital Signs/Intake and Output Vital Signs (last 24 hours): Temp Pulse Resp BP Pulse Ox 98.8 F 75 20 136/88 96 06/02/17 00:00 06/02/17 00:00 06/02/17 00:00 06/02/17 00:00 06/02/17 00:00 Intake and Output: 06/01/17 06/02/17 18:59 06:59 Intake Total 1200 300 Output Total 500 Balance 1200 -200 - Medications Medications: Current Medications Benztropine Mesylate (Cogentin) 1 mg PO [facility] Last Admin: 06/01/17 21:58 Dose: 1 mg Dextrose (Dextrose 50% Inj) 0 ml IV STAT PRN; Protocol PRN Reason: Hypoglycemia Protocol Dextrose (Glutose 15) 0 gm PO ONCE PRN; Protocol PRN Reason: Hypoglycemia Protocol Divalproex Sodium (Depakote Dr) 250 mg PO [facility] Last Admin: 06/01/17 21:46 Dose: 250 mg Divalproex Sodium (Depakote Dr) 250 mg PO BID [facility] Last Admin: 06/01/17 17:23 Dose: 250 mg Gabapentin (Neurontin) 100 mg PO TID [facility] Last Admin: 06/01/17 17:28 Dose: 100 mg Glucagon (Glucagen Diagnostic Kit) 0 mg IM STAT PRN; Protocol PRN Reason: Hypoglycemia Protocol Haloperidol (Haldol) 2 mg PO Q1H PRN PRN Reason: agitation 4x/24h Last Admin: 06/01/17 06:15 Dose: 2 mg Hydroxyzine HCl (Atarax) 25 mg PO Q6 PRN PRN Reason: Agitation Last Admin: 05/27/17 11:57 Dose: 25 mg Insulin Glargine (Lantus) 15 unit SC [facility] Last Admin: 06/01/17 21:51 Dose: 15 units Insulin Human Regular (Novolin R) 0 unit SC [facility] PRN Reason: Protocol Last Admin: 06/01/17 21:55 Dose: Not Given Lorazepam (Ativan) 0.5 mg PO Q6 PRN PRN Reason: Anxiety Last Admin: 06/02/17 00:25 Dose: 0.5 mg Metformin HCl (Glucophage) 500 mg PO BID [facility] Last Admin: 06/01/17 17:23 Dose: 500 mg Naproxen (Anaprox Ds) 550 mg PO BID [facility] Last Admin: 06/01/17 17:28 Dose: 550 mg Pantoprazole Sodium (Protonix Ec Tab) 40 mg PO DAILY [facility] Last Admin: 06/01/17 10:20 Dose: 40 mg Risperidone (Risperdal Tab) 1 mg PO QPM [facility] Last Admin: 06/01/17 21:48 Dose: 1 mg Trazodone HCl (Desyrel) 50 mg PO [facility] Last Admin: 06/01/17 21:50 Dose: 50 mg - Labs Labs: 05/31/17 06:56 05/31/17 06:56 - Constitutional Appears: Well, No Acute Distress - Head Exam Head Exam: ATRAUMATIC, NORMAL INSPECTION - Eye Exam Eye Exam: EOMI, Normal appearance - ENT Exam ENT Exam: Mucous Membranes Moist - Respiratory Exam Respiratory Exam: Clear to Ausculation Bilateral, NORMAL BREATHING PATTERN. absent: Rhonchi, Wheezes - Cardiovascular Exam Cardiovascular Exam: REGULAR RHYTHM, +S1, +S2 - GI/Abdominal Exam GI & Abdominal Exam: Soft, Normal Bowel Sounds - Extremities Exam Extremities Exam: absent: Calf Tenderness, Pedal Edema - Neurological Exam Neurological Exam: Alert, Awake, Oriented x3 - Psychiatric Exam Psychiatric exam: Normal Affect - Skin Skin Exam: Normal Color Assessment and Plan (1) Polysubstance abuse Assessment & Plan: in the setting of Bipolar Disorder with psychotic features 1:1 for observation Psychiatry recs: Cogentin 1mg PO HS Gabapentin 300mg PO TID Hydroxyzine 25mg PO Q6 prn Ativan 1mg PO Q6 prn Ativan 0.5 mg PO Q6 prn Risperidone 1mg PO HS Depakote 250 mg PO BID Depakote 250 mg PO HS Atarax 25 mg PO Q6 prn Haldol 2mg PO Q1H prn UDS positive for benzos Patient was found taking more medications than she was being given in rehab. Apparently other people were bringing meds and alcohol into the facility. Patient denies. She actually says that they have been taking medications from her. Status: Acute (2) Diabetes mellitus Assessment & Plan: Hgba1c 10 * Accuchecks ACHS * ISS- medium dose * Lantus 15 units HS * Metformin 500mg PO BID * Hypoglycemia protocol * lipid panel unremarkable Status: Acute (3) Unsteady gait Assessment & Plan: Patient can only ambulate with walker and needs assistance Status: Acute (4) Chronic pain Assessment & Plan: Naproxen 550mg PO BID Status: Acute (5) UTI (urinary tract infection) Assessment & Plan: RESOLVED + nitrate and WBC Urine cultures grew E. coli. Limited in what can be given since patient refusing IV access. Repeat UC 05/20/17 - no growth up to date Macrobid 100 mg PO Q12 since 05/13/17 - 05/22/17 - to complete 10 day course Status: Acute (6) Prophylactic measure Assessment & Plan: SCDS, VTE contraindicated due to thrombocytopenic Protonix 40mg PO daily PT/OT- recommend MISA but patient's insurance does not have anymore MISA days Diabetic diet Disposition: Patient reports her daughter agreed to take the patient home on Sunday. She is currently making arrangements to be able to support the patient in her home. Case management will confirm this and we will plan accordingly. Pending medicaid renewal Labs will be drawn every 4 days until discharge. All plans and management made aware to Dr. Choe Status: Acute <Mynor Choe - Last Filed: 06/02/17 11:12> Objective - Vital Signs/Intake and Output Vital Signs (last 24 hours): Temp Pulse Resp BP Pulse Ox 97.7 F 83 20 133/77 96 06/02/17 08:15 06/02/17 08:15 06/02/17 08:15 06/02/17 08:15 06/02/17 08:15 Intake and Output: 06/02/17 06/02/17 06:59 18:59 Intake Total 600 Output Total 500 Balance 100 - Medications Medications: Current Medications Benztropine Mesylate (Cogentin) 1 mg PO HS [facility] Last Admin: 06/01/17 21:58 Dose: 1 mg Dextrose (Dextrose 50% Inj) 0 ml IV STAT PRN; Protocol PRN Reason: Hypoglycemia Protocol Dextrose (Glutose 15) 0 gm PO ONCE PRN; Protocol PRN Reason: Hypoglycemia Protocol Divalproex Sodium (Depakote Dr) 250 mg PO HS [facility] Last Admin: 06/01/17 21:46 Dose: 250 mg Divalproex Sodium (Depakote Dr) 250 mg PO BID [facility] Last Admin: 06/02/17 08:56 Dose: 250 mg Gabapentin (Neurontin) 100 mg PO TID [facility] Last Admin: 06/02/17 08:56 Dose: 100 mg Glucagon (Glucagen Diagnostic Kit) 0 mg IM STAT PRN; Protocol PRN Reason: Hypoglycemia Protocol Haloperidol (Haldol) 2 mg PO Q1H PRN PRN Reason: agitation 4x/24h Last Admin: 06/01/17 06:15 Dose: 2 mg Hydroxyzine HCl (Atarax) 25 mg PO Q6 PRN PRN Reason: Agitation Last Admin: 05/27/17 11:57 Dose: 25 mg Insulin Glargine (Lantus) 15 unit SC [facility] Last Admin: 06/01/17 21:51 Dose: 15 units Insulin Human Regular (Novolin R) 0 unit SC [facility] PRN Reason: Protocol Last Admin: 06/02/17 08:54 Dose: 3 unit Lorazepam (Ativan) 0.5 mg PO Q6 PRN PRN Reason: Anxiety Last Admin: 06/02/17 00:25 Dose: 0.5 mg Metformin HCl (Glucophage) 500 mg PO BID [facility] Last Admin: 06/02/17 08:55 Dose: 500 mg Naproxen (Anaprox Ds) 550 mg PO BID [facility] Last Admin: 06/02/17 08:56 Dose: 550 mg Pantoprazole Sodium (Protonix Ec Tab) 40 mg PO DAILY [facility] Last Admin: 06/02/17 08:55 Dose: 40 mg Risperidone (Risperdal Tab) 1 mg PO QPM [facility] Last Admin: 06/01/17 21:48 Dose: 1 mg Trazodone HCl (Desyrel) 50 mg PO [facility] Last Admin: 06/01/17 21:50 Dose: 50 mg - Labs Labs: 05/31/17 06:56 05/31/17 06:56 Attending/Attestation - Attestation I have personally seen and examined this patient.: Yes I have fully participated in the care of the patient.: Yes I have reviewed all pertinent clinical information, including history, physical exam and plan: Yes Notes (Text): 06/02/17 11:10 Medical attending: Patient was seen and examined by me Agree with the above note by the resident The patient's daughter is planning on brining patient home this comming Sunday Also behavioral health case manager has arranged for homecare to come and help out as well. Patient reports she finally is sleeping better now. thank you Mynor Choe
[2017-06-02] MEDS: (Novolin R) Insulin Human Regular 100 units/ml vial SC SCH ×4 (08:54→22:18)
[2017-06-02] MEDS: Pantoprazole 40 mg EC Tab PO SCH ×2 (08:55→12:47)
[2017-06-02] MEDS: Naproxen 550 mg Tab PO SCH ×3 (08:56→18:40)
[2017-06-02] MEDS: Divalproex 250 mg DR Tab PO SCH ×4 (08:56→21:33)
[2017-06-02] MEDS: (Lantus) Insulin Glargine, Recombinant SC SCH (21:35)
--- NOTE | 2017-06-03 01:09 | CP.PCM.PN ---
<Gonzalo Bryan E - Last Filed: 06/03/17 01:05> Subjective - Date & Time of Evaluation Date of Evaluation: 06/03/17 Time of Evaluation: 00:30 - Subjective Subjective: Medicine progress note ( Dr. Choe's service) Patient was seen and examined at bedside. Patient was sitting in bed and resting comfortably. Patient reports that she has no new or acute complaints. Patient denies fever, chills, headache, chest pain, abdominal pain, n/v/d/c, or urinary symptoms but still continues to complain of mild bilateral leg pain. Patient reports that she has been ambulating with her walker. Objective - Vital Signs/Intake and Output Vital Signs (last 24 hours): Temp Pulse Resp BP Pulse Ox 98.3 F 83 20 141/92 H 95 06/03/17 00:00 06/03/17 00:00 06/03/17 00:00 06/03/17 00:00 06/03/17 00:00 Intake and Output: 06/02/17 06/03/17 18:59 06:59 Intake Total 300 Output Total 400 Balance -100 - Medications Medications: Current Medications Benztropine Mesylate (Cogentin) 1 mg PO HS [facility] Last Admin: 06/02/17 21:33 Dose: 1 mg Dextrose (Dextrose 50% Inj) 0 ml IV STAT PRN; Protocol PRN Reason: Hypoglycemia Protocol Dextrose (Glutose 15) 0 gm PO ONCE PRN; Protocol PRN Reason: Hypoglycemia Protocol Divalproex Sodium (Depakote Dr) 250 mg PO HS [facility] Last Admin: 06/02/17 21:33 Dose: 250 mg Divalproex Sodium (Depakote Dr) 250 mg PO BID [facility] Last Admin: 06/02/17 17:43 Dose: 250 mg Gabapentin (Neurontin) 100 mg PO TID [facility] Last Admin: 06/02/17 17:42 Dose: 100 mg Glucagon (Glucagen Diagnostic Kit) 0 mg IM STAT PRN; Protocol PRN Reason: Hypoglycemia Protocol Haloperidol (Haldol) 2 mg PO Q1H PRN PRN Reason: agitation 4x/24h Last Admin: 06/01/17 06:15 Dose: 2 mg Hydroxyzine HCl (Atarax) 25 mg PO Q6 PRN PRN Reason: Agitation Last Admin: 05/27/17 11:57 Dose: 25 mg Insulin Glargine (Lantus) 15 unit SC [facility] Last Admin: 06/02/17 21:35 Dose: 15 units Insulin Human Regular (Novolin R) 0 unit SC [facility] PRN Reason: Protocol Last Admin: 06/02/17 22:18 Dose: Not Given Lorazepam (Ativan) 0.5 mg PO Q6 PRN PRN Reason: Anxiety Last Admin: 06/03/17 00:59 Dose: 0.5 mg Metformin HCl (Glucophage) 500 mg PO BID [facility] Last Admin: 06/02/17 17:44 Dose: 500 mg Naproxen (Anaprox Ds) 550 mg PO BID [facility] Last Admin: 06/02/17 18:40 Dose: 550 mg Pantoprazole Sodium (Protonix Ec Tab) 40 mg PO DAILY [facility] Last Admin: 06/02/17 12:47 Dose: Not Given Risperidone (Risperdal Tab) 1 mg PO QPM [facility] Last Admin: 06/02/17 17:43 Dose: 1 mg Trazodone HCl (Desyrel) 50 mg PO [facility] Last Admin: 06/02/17 21:35 Dose: 50 mg - Labs Labs: 05/31/17 06:56 05/31/17 06:56 - Constitutional Appears: No Acute Distress - Head Exam Head Exam: ATRAUMATIC, NORMAL INSPECTION - Eye Exam Eye Exam: EOMI, Normal appearance - ENT Exam ENT Exam: Mucous Membranes Moist - Respiratory Exam Respiratory Exam: Clear to Ausculation Bilateral, NORMAL BREATHING PATTERN. absent: Prolonged Expiratory Phase, Rhonchi, Wheezes - Cardiovascular Exam Cardiovascular Exam: REGULAR RHYTHM, +S1, +S2. absent: Murmur - GI/Abdominal Exam GI & Abdominal Exam: Soft, Normal Bowel Sounds. absent: Firm, Guarding, Rigid, Tenderness - Extremities Exam Extremities Exam: absent: Pedal Edema Additional comments: Bilateral DP audible to doppler but difficult to assess bilateral PT pulses with doppler Both legs are mildly cold to touch Assessment and Plan (1) Polysubstance abuse Assessment & Plan: Psychiatry recs: Cogentin 1mg PO HS Gabapentin 300mg PO TID Hydroxyzine 25mg PO Q6 prn Ativan 1mg PO Q6 prn Ativan 0.5 mg PO Q6 prn Risperidone 1mg PO HS Depakote 250 mg PO BID Depakote 250 mg PO HS Atarax 25 mg PO Q6 prn Haldol 2mg PO Q1H prn UDS positive for benzos Patient was found taking more medications than she was being given in rehab. Apparently other people were bringing meds and alcohol into the facility. Patient denies. She actually says that they have been taking medications from her. Status: Acute (2) Diabetes mellitus Assessment & Plan: Hgba1c 10 * Accuchecks ACHS * ISS- medium dose * Lantus 15 units HS * Metformin 500mg PO BID * Hypoglycemia protocol * lipid panel unremarkable Status: Acute (3) Unsteady gait Assessment & Plan: Patient can only ambulate with walker and needs assistance Status: Acute (4) Chronic pain Assessment & Plan: Naproxen 550mg PO BID Status: Acute (5) UTI (urinary tract infection) Assessment & Plan: Resolved + nitrate and WBC Urine cultures grew E. coli. Limited in what can be given since patient refusing IV access. Repeat UC 05/20/17 - no growth up to date Macrobid 100 mg PO Q12 since 05/13/17 - 05/22/17 - to complete 10 day course Status: Acute (6) Prophylactic measure Assessment & Plan: SCDS, VTE contraindicated due to thrombocytopenic Protonix 40mg PO daily PT/OT- recommend MISA but patient's insurance does not have anymore MISA days Diabetic diet Disposition: Patient reports her daughter agreed to take the patient home on Sunday. She is making arrangements to be able to support the patient in her home. Case management will confirm this and we will plan accordingly. Pending medicaid renewal Labs will be drawn every 4 days until discharge. All plans and management made aware to Dr. Choe Status: Acute <Mynor Choe - Last Filed: 06/03/17 13:18> Objective - Vital Signs/Intake and Output Vital Signs (last 24 hours): Temp Pulse Resp BP Pulse Ox 97.7 F 73 20 126/82 96 06/03/17 08:26 06/03/17 08:26 06/03/17 08:26 06/03/17 08:26 06/03/17 08:26 Intake and Output: 06/03/17 06/03/17 06:59 18:59 Intake Total 700 Output Total 400 Balance 300 - Medications Medications: Current Medications Benztropine Mesylate (Cogentin) 1 mg PO HS [facility] Last Admin: 06/02/17 21:33 Dose: 1 mg Dextrose (Dextrose 50% Inj) 0 ml IV STAT PRN; Protocol PRN Reason: Hypoglycemia Protocol Dextrose (Glutose 15) 0 gm PO ONCE PRN; Protocol PRN Reason: Hypoglycemia Protocol Divalproex Sodium (Depakote Dr) 250 mg PO HS [facility] Last Admin: 06/02/17 21:33 Dose: 250 mg Divalproex Sodium (Depakote Dr) 250 mg PO BID [facility] Last Admin: 06/03/17 11:36 Dose: 250 mg Gabapentin (Neurontin) 100 mg PO TID [facility] Last Admin: 06/03/17 11:37 Dose: 100 mg Glucagon (Glucagen Diagnostic Kit) 0 mg IM STAT PRN; Protocol PRN Reason: Hypoglycemia Protocol Haloperidol (Haldol) 2 mg PO Q1H PRN PRN Reason: agitation 4x/24h Last Admin: 06/03/17 03:25 Dose: 2 mg Hydroxyzine HCl (Atarax) 25 mg PO Q6 PRN PRN Reason: Agitation Last Admin: 05/27/17 11:57 Dose: 25 mg Insulin Glargine (Lantus) 15 unit SC [facility] Last Admin: 06/02/17 21:35 Dose: 15 units Insulin Human Regular (Novolin R) 0 unit SC [facility] PRN Reason: Protocol Last Admin: 06/03/17 09:28 Dose: 3 unit Lorazepam (Ativan) 0.5 mg PO Q6 PRN PRN Reason: Anxiety Last Admin: 06/03/17 00:59 Dose: 0.5 mg Metformin HCl (Glucophage) 500 mg PO BID [facility] Last Admin: 06/03/17 11:36 Dose: 500 mg Naproxen (Anaprox Ds) 550 mg PO BID [facility] Last Admin: 06/03/17 11:37 Dose: 550 mg Pantoprazole Sodium (Protonix Ec Tab) 40 mg PO DAILY [facility] Last Admin: 06/03/17 11:36 Dose: 40 mg Risperidone (Risperdal Tab) 1 mg PO QPM [facility] Last Admin: 06/02/17 17:43 Dose: 1 mg Trazodone HCl (Desyrel) 50 mg PO [facility] Last Admin: 06/02/17 21:35 Dose: 50 mg - Labs Labs: 05/31/17 06:56 05/31/17 06:56 Attending/Attestation - Attestation I have personally seen and examined this patient.: No I have fully participated in the care of the patient.: Yes I have reviewed all pertinent clinical information, including history, physical exam and plan: Yes Notes (Text): 06/03/17 13:16 Medical attending: I came to see the patient - however she was sleeping and she has always complained about not being able to sleep so I will come back later today. Regardless I reviewed the above note by the certified medical coder and agree with the above. Her family member is trying to bring her home this coming Sunday 06/04. The assistant case manager has also arranged for home visitation as well. thank you Mynor Choe
[2017-06-03] MEDS: (Novolin R) Insulin Human Regular 100 units/ml vial SC SCH ×4 (09:28→21:17)
[2017-06-03] MEDS: Pantoprazole 40 mg EC Tab PO SCH (11:36)
[2017-06-03] MEDS: Divalproex 250 mg DR Tab PO SCH ×3 (11:36→22:10)
[2017-06-03] MEDS: Naproxen 550 mg Tab PO SCH ×2 (11:37→17:52)
[2017-06-03] MEDS: (Lantus) Insulin Glargine, Recombinant SC SCH (22:10)
[2017-06-04 06:47] LABS: BASO % 0.3 % (0.0-2.0); EOS # 0.1 K/uL (0.0-0.7); EOS % 1.4 % (0.0-4.0); HEMOGLOBIN 12.6 g/dL (11.0-16.0); LYMPH # 1.6 K/uL (1.0-4.3); LYMPH % 23.7 % (20.0-40.0); MEAN CELL VOLUME 82.1 fL (81.0-99.0); MEAN CORPUSCULAR HEMOGLOBIN 28.6 pg (27.0-31.0); MEAN CORPUSCULAR HGB CONC 34.8 g/dL (33.0-37.0); MEAN PLATELET VOLUME 9.8 fL (7.2-11.7); MONO # 0.5 K/uL (0.0-0.8); MONO % 7.2 % (0.0-10.0); NEUT # 4.5 K/uL (1.8-7.0); NEUT % 67.4 % (50.0-75.0); RBC 4.42 Mil/uL (3.80-5.20); RED CELL DISTRIBUTION WIDTH 13.8 % (11.5-14.5); WHITE BLOOD COUNT 6.7 K/uL (4.8-10.8)
[2017-06-04 07:02] LABS: ALBUMIN 3.7 g/dL (3.5-5.0); ALT/SGPT 30 U/L (9-52); AST/SGOT 25 U/L (14-36); BLOOD UREA NITROGEN 19 mg/dL (7-17); CALCIUM 9.2 mg/dl (8.6-10.4); GFR AFRICAN-AMERICAN > 60; GFR NON-AFRICAN AMERICAN > 60; MAGNESIUM 1.4 mg/dL (1.6-2.3)
[2017-06-04] MEDS: (Novolin R) Insulin Human Regular 100 units/ml vial SC SCH ×2 (08:23→12:06)
[2017-06-04] MEDS ORDERED: Magnesium Sulfate 1 gm in D5W 1 GM/100 ML BAG IVPB SCH (09:00)
[2017-06-04 09:22] VITALS: BP 149/79; PULSE 71; TEMP 98; O2SAT 96
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
[2017-06-04] MEDS ORDERED: Magnesium Oxide 400 mg Tab UD PO SCH (10:00)
[2017-06-04] MEDS: Naproxen 550 mg Tab PO SCH (10:13)
[2017-06-04] MEDS: Pantoprazole 40 mg EC Tab PO SCH (10:13)
[2017-06-04] MEDS: Divalproex 250 mg DR Tab PO SCH (10:14)
== END 2017-06-04 13:15 | disposition home health service (06) | DRG 897 ==
LOC: C.ER 16:36 → C.9E 05-13 08:11 → C.3T 05-13 08:36 → UNDODISIN 05-18 08:24 → C.3T 05-18 10:34
PROVIDERS: ADMIT Internal Medicine; ATTEND Internal Medicine
DX: F13.20 Sedative, hypnotic or anxiolytic dependence, uncomplicated (principal); D69.6 Thrombocytopenia, unspecified; F31.64 Bipolar disorder, current episode mixed, severe, with psychotic features; N39.0 Urinary tract infection, site not specified; E11.9 Type 2 diabetes mellitus without complications; B96.20 Unspecified Escherichia coli [E. coli] as the cause of diseases classified elsewhere; F17.210 Nicotine dependence, cigarettes, uncomplicated; I10 Essential (primary) hypertension; Z59.0 Homelessness; R26.81 Unsteadiness on feet; F41.1 Generalized anxiety disorder; G89.29 Other chronic pain; Z79.4 Long term (current) use of insulin

== ENCOUNTER 2017-08-25 12:27 | Inpatient (IN) | payer MEDICARE, MEDICAID ==
[2017-08-25 12:27] VITALS: BMI 29.9
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
--- NOTE | 2017-08-25 14:37 | RAD ---
Chest x-ray single frontal view History: Detox. Comparison: 05/12/2017 Findings: Enlarged ectatic aorta. Mild cardiomegaly. Diffuse increased interstitial lung markings suggestive for vascular congestion versus edema versus interstitial infiltrate. Clinical correlation. Impression: Enlarged ectatic aorta. Mild cardiomegaly. Diffuse increased interstitial lung markings suggestive for vascular congestion versus edema versus interstitial infiltrate. Clinical correlation.
[2017-08-25 15:36] LABS: BASO % 0.2 % (0.0-2.0); EOS % 0.2 % (0.0-4.0); LYMPH # 1.8 K/uL (1.0-4.3); LYMPH % 14.6 % (20.0-40.0); MEAN CORPUSCULAR HEMOGLOBIN 28.7 pg (27.0-31.0); MEAN CORPUSCULAR HGB CONC 34.7 g/dL (33.0-37.0); MEAN PLATELET VOLUME 9.1 fL (7.2-11.7); MONO # 0.8 K/uL (0.0-0.8); MONO % 6.6 % (0.0-10.0); NEUT # 9.4 K/uL (1.8-7.0); NEUT % 78.4 % (50.0-75.0); RBC 4.17 Mil/uL (3.80-5.20); RED CELL DISTRIBUTION WIDTH 14.1 % (11.5-14.5)
[2017-08-25 15:49] LABS: ACETAMINOPHEN < 10.0 ug/mL (10.0-30.0); SALICYLATE < 1.0 mg/dL 1
[2017-08-25 15:53] LABS: ALBUMIN 3.7 g/dL (3.5-5.0); ALT/SGPT 34 U/L (9-52); AST/SGOT 30 U/L (14-36); BLOOD UREA NITROGEN 12 mg/dL (7-17); GFR AFRICAN-AMERICAN > 60; GFR NON-AFRICAN AMERICAN > 60
[2017-08-25 16:12] LABS: SQUAMOUS EPITHIAL 10 /hpf (0-5); URINE BACTERIA MANY (<OCC); URINE BILIRUBIN NEGATIVE (NEGATIVE); URINE BLOOD 1+ (NEGATIVE); URINE CLARITY Hazy (Clear); URINE COLOR Yellow (YELLOW); URINE GLUCOSE (UA) 2+ mg/dL (Normal); URINE LEUKOCYTE ESTERASE 3+ Leu/uL (Negative); URINE PROTEIN 2+ mg/dL (NEGATIVE); URINE UROBILINOGEN NORMAL mg/dL (0.2-1.0)
[2017-08-25] MEDS ORDERED: Potassium Chloride 20 mEq ER Tab PO STA (16:37)
[2017-08-25 16:45] LABS: BARBITURATES, UR NEGATIVE (NEGATIVE); OPIATES, UR NEGATIVE (NEGATIVE); PHENCYCLIDINE, UR NEGATIVE (NEGATIVE)
[2017-08-25 16:46] LABS: BENZODIAZEPINES, UR POSITIVE (NEGATIVE)
[2017-08-25] MEDS ORDERED: Potassium Chloride 20 mEq ER Tab PO ONE (17:03)
--- NOTE | 2017-08-25 18:37 | CT ---
EXAM: CT Abdomen and Pelvis Without Intravenous Contrast EXAM DATE/TIME: 08/25/2017 4:35 PM CLINICAL HISTORY: 67 years old, female; Pain; Abdominal pain; Flank; Lower; Additional info: Flank pain TECHNIQUE: Axial computed tomography images of the abdomen and pelvis without intravenous contrast. All CT scans at this facility use one or more dose reduction techniques, viz.: automated exposure control; ma/kV adjustment per patient size (including targeted exams where dose is matched to indication; i.e. head); or iterative reconstruction technique. Coronal and sagittal reformatted images were created and reviewed. COMPARISON: There are no prior studies for comparison. FINDINGS: Artifacts: Motion artifact degrades image quality. Lung bases: The heart is mildly enlarged. There are coronary artery calcifications. There is atelectasis and scarring at the lung bases.Pancreas is mildly atrophic. ABDOMEN: Liver: unremarkable Gallbladder and bile ducts: unremarkable Pancreas: unremarkable Spleen: unremarkable Adrenals: unremarkable Kidneys and ureters: There are nonobstructing left renal stones.Kidneys and ureters are otherwise unremarkable. There are no ureteral stones. There is nonspecific right perinephric stranding. Stomach and bowel: There is minimal oral contrast in the distal esophagus and stomach. Stomach is incompletely distended. Rotation is normal. There are mildly distended small bowel loops in the midabdomen. There is no obstruction. Ileocecal region is unremarkable.Colon is incompletely distended which limits evaluation. There is scattered diverticulosis PELVIS: Appendix: See stomach and bowel Bladder: unremarkable Reproductive: Uterus is unremarkable. There are coarse calcifications in both adnexa. ABDOMEN and PELVIS: Intraperitoneal space: There is no free air or free fluid. Bones/joints: There are degenerative changes in the osseus structures. There is a benign-appearing lucent lesion in the left ilium. Soft tissues: There is a fat containing left inguinal hernia. There is a small fat containing umbilical hernia. Vasculature: There are vascular calcifications. Lymph nodes: There is shotty para-aortic adenopathy IMPRESSION: Nonobstructing left renal stones, no ureteral stones or hydronephrosis; course adnexal calcifications bilaterally suggesting small dermoids; mild ileus, no obstruction; no CT findings of appendicitis or diverticulitis Additional nonemergent findings as described above.
[2017-08-25] MEDS: Divalproex 250 mg DR Tab PO SCH (22:00)
[2017-08-25] MEDS: (Lantus) Insulin Glargine, Recombinant SC SCH (22:42)
[2017-08-26] MEDS: (Novolog) Insulin Aspart, Recombinant 100 u/ml 10 ml vial SC SCH ×4 (08:07→21:47)
[2017-08-26] MEDS: Enoxaparin 40 mg Syringe SC SCH (10:02)
[2017-08-26] MEDS: Pantoprazole 40 mg EC Tab PO SCH (10:02)
[2017-08-26] MEDS: Divalproex 250 mg DR Tab PO SCH ×2 (10:02→17:10)
[2017-08-26] MEDS: Cefepime 2 GM in Dextrose 5% In Water 100 ML IVPB SCH (17:14)
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
[2017-08-26] MEDS: (Lantus) Insulin Glargine, Recombinant SC SCH (21:48)
[2017-08-26 22:14] LABS: SQUAMOUS EPITHIAL 1 /hpf (0-5); URINE BACTERIA MOD (<OCC); URINE BILIRUBIN NEGATIVE (NEGATIVE); URINE BLOOD 2+ (NEGATIVE); URINE CLARITY Hazy (Clear); URINE COLOR Amber (YELLOW); URINE GLUCOSE (UA) 1+ mg/dL (Normal); URINE LEUKOCYTE ESTERASE 3+ Leu/uL (Negative); URINE PROTEIN 2+ mg/dL (NEGATIVE); URINE UROBILINOGEN NORMAL mg/dL (0.2-1.0)
[2017-08-27] MEDS: Cefepime 2 GM in Dextrose 5% In Water 100 ML IVPB SCH (05:12)
[2017-08-27] MEDS: (Novolog) Insulin Aspart, Recombinant 100 u/ml 10 ml vial SC SCH ×4 (08:50→21:43)
[2017-08-27] MEDS: Pantoprazole 40 mg EC Tab PO SCH (11:24)
[2017-08-27] MEDS: Enoxaparin 40 mg Syringe SC SCH (11:25)
[2017-08-27] MEDS: Divalproex 250 mg DR Tab PO SCH ×2 (11:27→17:55)
--- NOTE | 2017-08-27 12:08 | CP.PCM.PN ---
Subjective - Date & Time of Evaluation Date of Evaluation: 08/27/17 Time of Evaluation: 18:30 - Subjective Subjective: CHIEF COMPLAINTS TODAY : afebrile, c/o Frequency of urination and back pain denies hematuria or dysuria. Not aware of kidney stones as per patient today. ROS. HEENT : N. Resp : No SOB wheezing, cough Cardio : No CP, PND orthopnea GI : No abd. 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 Musculoskel : chronic back pain. Ext. : Pedal pulses intact, no edema or calf pain Derm : N Psych : N. PE. Pt. is awake , anxious ,in no distress. V.S As noted in the chart Head ,ear nose,throat and eyes : Normal. Neck : Supple with normal carotids. Lungs: Clear air entry. Heart : S1 & S2 normal . . No murmur. S4 + Abd : Soft non tender with normal bowel sounds. Neuro : Moves all ext. with no localized deficit. Ext : No edema with intact pulses. Neg. calf tenderness Derm : No rashes or decubitus ulcer. Radiology/Labs . BLOOD CULTURE -GNR--P URINE CULTURE-+VE E.COLI S -MEROPENEM/AMIKACIN/ & BHS-GRP B Asssessment : GRAM-NEGATIVE SEPTICEMIA UROSEPSIS NEPHROLITHIASIS LT. KIDNEY DIABETES MELLITUS. LOW BACK PAIN CHRONIC. ANXIETY/SCHIZOPHRENIA. Plan : PANCULTURES DC IV CEFEPIME. START IV MERREM 1 GM IVPB EVERY 8 HOURLY.08/27/17. ADD IV AMPICILLIN 2 G iv PIGGYBACK EVERY 8 HOURLY. 08/27/17. F/U CULTURES TO ADJUST ANTIBIOTICS. WILL DISCUSS . Objective - Vital Signs/Intake and Output Vital Signs (last 24 hours): Temp Pulse Resp BP Pulse Ox 98.3 F 68 20 119/68 98 08/27/17 08:03 08/27/17 08:03 08/27/17 08:03 08/27/17 08:03 08/27/17 08:03 Intake and Output: 08/27/17 08/27/17 06:59 18:59 Intake Total 720 Output Total 100 Balance 620 - Medications Medications: Current Medications Acetaminophen (Tylenol 325mg Tab) 650 mg PO Q4H PRN PRN Reason: pain fever Last Admin: 08/26/17 17:10 Dose: 650 mg Benztropine Mesylate (Cogentin) 1 mg PO [facility] Last Admin: 08/26/17 21:48 Dose: 1 mg Divalproex Sodium (Depakote Dr) 250 mg PO BID [facility] Last Admin: 08/27/17 11:27 Dose: 250 mg Enoxaparin Sodium (Lovenox) 40 mg SC DAILY [facility] Last Admin: 08/27/17 11:25 Dose: 40 mg Gabapentin (Neurontin) 100 mg PO TID [facility] Last Admin: 08/27/17 11:24 Dose: 100 mg Meropenem 1 gm/ Sodium (Chloride) 100 mls @ 100 mls/hr IVPB Q8 [facility] PRN Reason: Protocol Ampicillin 2 gm/ Sodium (Chloride) 100 mls @ 200 mls/hr IVPB Q8H [facility] PRN Reason: Protocol Insulin Aspart (Novolog) 0 unit SC [facility] PRN Reason: Protocol Last Admin: 08/27/17 08:50 Dose: 2 unit Insulin Glargine (Lantus) 15 unit SC [facility] Last Admin: 08/26/17 21:48 Dose: 15 units Metformin HCl (Glucophage) 500 mg PO BID [facility] Last Admin: 08/27/17 11:24 Dose: 500 mg Pantoprazole Sodium (Protonix Ec Tab) 40 mg PO DAILY [facility] Last Admin: 08/27/17 11:24 Dose: 40 mg Risperidone (Risperdal Tab) 1 mg PO [facility] Last Admin: 08/26/17 21:49 Dose: 1 mg Trazodone HCl (Desyrel) 50 mg PO [facility] Last Admin: 08/26/17 21:49 Dose: 50 mg - Labs Labs: 08/25/17 15:32 08/25/17 15:32 Assessment and Plan (1) Gram-neg septicemia Status: Acute (2) UTI (urinary tract infection) Status: Acute (3) Diabetes mellitus Status: Acute (4) Low back pain Status: Acute (5) Anxiety Status: Acute (6) Schizophrenia Status: Acute
[2017-08-27] MEDS: Meropenem 1 GM in Sodium Chloride 0.9% 100 ML IVPB SCH ×2 (14:28→21:39)
--- NOTE | 2017-08-27 15:50 | PCM.PSYCH ---
Initial Psychiatric Evaluation - Initial Psychiatric Evaluation Type of Admission: Voluntary Legal Status: Capacity Chief Complaint (in patient's own words): I have back pain and I am anxious History of Present Illness and Precipitating Events: 67 y/o female with history of chronic back pain, anxiety, depression, diabetes, HTN, depression presented to the ED for her chronic back pain. In the ED, patient was a poor history and was yelling at bedside because she was agitated from all the questions she was asked. Patient was consulted today. Product Development Intern is familiar with this patient. Patient has history of bipolar disorder and she has been to medical floors because of noncompliance of her medications. When the patient was seen today, she states she came to the hospital for her chronic back pain. Overall the patient was disorganized in her speech and thoughts. At first the patient did not know where she was. She believed she was at a [facility] being provided care. Then she thought her nurses and physicians were actually her neighbors. Eventually, the patient become aware of her surroundings and give stories about how her back opened up with a tumor and it caused her to have chronic back pain. Patient denies feeling of depression and denies decrease in interests, concentration, appetite, suicidal ideation, or feeling of guilt. Patient continues to complain of anxiety and says its her back pain that is causing her anxiety. Patient is denying all medications because she says nothing helps her pain. Patient remained disorganized and internally preoccupied throughout the evaluation. She continued to have loose associations. Current Medications: Active Medications Generic Name Dose Route Start Last Admin Trade Name Freq PRN Reason Stop Dose Admin Acetaminophen 650 mg 08/25/17 21:02 08/26/17 17:10 Tylenol 325mg Tab PO 650 mg Q4H PRN Administration pain fever Benztropine Mesylate 1 mg 08/25/17 22:00 08/26/17 21:48 Cogentin PO 1 mg HS PRABHA Administration Divalproex Sodium 250 mg 08/25/17 21:00 08/27/17 11:[address] PO Not Given BID PR[facility] Enoxaparin Sodium 40 mg 08/26/17 10:00 08/27/17 11:25 Lovenox SC 40 mg DAILY [facility] Administration Gabapentin 100 mg 08/26/17 10:00 08/27/17 14:18 Neurontin PO Not Given TID PRABHA Meropenem 1 gm/ Sodium 100 mls @ 100 mls/hr 08/27/17 14:00 08/27/17 14:28 Chloride IVPB 100 mls/hr Q8 PRAB[facility] Administration Protocol Ampicillin 2 gm/ Sodium 100 mls @ 200 mls/hr 08/27/17 16:00 Chloride IVPB Q8H PRAB[facility] Protocol Insulin Aspart 0 unit 08/26/17 07:30 08/27/17 12:23 Novolog SC 4 unit [facility] PR[facility] Administration Protocol Insulin Glargine 15 unit 08/25/17 22:00 08/26/17 21:48 Lantus SC 15 units HS PRABHA Administration Metformin HCl 500 mg 08/26/17 10:00 08/27/17 11:24 Glucophage PO Not Given BID PR[facility] Pantoprazole Sodium 40 mg 08/26/17 10:00 08/27/17 11:24 Protonix Ec Tab PO Not Given DAILY [facility] Risperidone 1 mg 08/25/17 22:00 08/26/17 21:49 Risperdal Tab PO 1 mg HS PR[facility]HA Administration Trazodone HCl 50 mg 08/25/17 22:00 08/26/17 21:49 Desyrel PO 50 mg HS PRABHA Administration Past Psychiatric History - Past Psychiatric History Previous Treatment History: None Pertinent Medical Hx (Current Medical&Sleep Prob, Allergies): Allergies Allergy/AdvReac Type Severity Reaction Status Date / Time No Known Allergies Allergy Verified 08/25/17 13:25 Benztropine [Cogentin] 1 mg PO HS tab 05/28/17 Divalproex [Depakote DR] 250 mg PO BID tcp 05/28/17 Divalproex [Depakote DR] 250 mg PO HS tcp 05/28/17 Gabapentin [Neurontin] 100 mg PO TID cap 05/28/17 Insulin Glargine, Recombina [Lantus] 15 unit SC HS unit 05/28/17 Pantoprazole [Protonix EC Tab] 40 mg PO DAILY ect 05/28/17 metFORMIN [glucOPHAGE] 500 mg PO BID tab 05/28/17 risperiDONE [RisperDAL Tab] 1 mg PO HS tab 05/28/17 traZODone [Desyrel] 50 mg PO HS tab 05/28/17 Naproxen [Anaprox DS] 550 mg PO BID #60 tab 06/04/17 Review of Systems - Review of Systems All systems: reviewed and no additional remarkable complaints except - Psychiatric Psychiatric: Anxiety, Irritability, Paranoia Mental Status Examination - Personal Presentation Personal Presentation: Looks stated age - Affect Affect: Broad - Motor Activity Motor Activity: Psychomotor Agitation - Reliability in Providing Information Reliability in Providing Information: Poor, due to alteration in thoughts, Poor , due to altered mood - Speech Speech: Disorganized - Mood Mood: Anxious - Formal Thought Process Formal Thought Process: Delusions, Paranoia, Loosening of associations, Flight of ideas, Circumstantial - Hallucinations/Delusions Delusions: Persecution - Obsessions/Compulsions Obsessions: No Compulsions: No - Cognitive Functions Orientation: Person, Place Sensorium: Alert Attention/Concentration: Attentive Abstract Thinking: [place] Estimate of Intelligence: Below average Judgement: Imparied, as evidence by: Poor judgement, Imparied, as evidence by: Lack of insight into illness - Risk Risk: Diminished functioning DSM 5 DX - DSM 5 DSM 5 Diagnosis: Rule out delirium Bipolar disorder mixed severe with psychotic features - Recommended/Plan of Treatment Treatment Recommendations and Plan of Treatment: Rule out delirium Bipolar disorder mixed severe with psychotic features Supportive therapy Continue Depakote 250 mg by mouth twice a day Continue Risperdal 1 mg by mouth daily at bedtime Continue Cogentin 1 mg by mouth daily at bedtime Continue gabapentin 100 mg by mouth 3 times a day - Smoking Cessation Smoking Cessation Initiated: No
[2017-08-27] MEDS: AMPicillin 2 GM in Sodium Chloride 0.9% 100 ML IVPB SCH (16:50)
[2017-08-27] MEDS: (Lantus) Insulin Glargine, Recombinant SC SCH (21:45)
[2017-08-28] MEDS: AMPicillin 2 GM in Sodium Chloride 0.9% 100 ML IVPB SCH ×3 (00:45→16:24)
[2017-08-28] MEDS: Meropenem 1 GM in Sodium Chloride 0.9% 100 ML IVPB SCH ×3 (05:05→21:15)
[2017-08-28 06:48] LABS: MEAN CELL VOLUME 83.7 fL (81.0-99.0)
[2017-08-28 07:05] LABS: BLOOD UREA NITROGEN 16 mg/dL (7-17); CALCIUM 8.8 mg/dl (8.6-10.4); GFR AFRICAN-AMERICAN > 60; GFR NON-AFRICAN AMERICAN > 60
[2017-08-28 07:49] LABS: HEMOGLOBIN 10.3 g/dL (11.0-16.0); MEAN CORPUSCULAR HEMOGLOBIN 29.1 pg (27.0-31.0); MEAN CORPUSCULAR HGB CONC 34.7 g/dL (33.0-37.0); RBC 3.55 Mil/uL (3.80-5.20); RED CELL DISTRIBUTION WIDTH 13.9 % (11.5-14.5)
--- NOTE | 2017-08-28 07:52 | PN ---
DATE: 08/27/2017 SUBJECTIVE: The patient was seen and examined at the bedside on 08/27/2017. She is complaining about frequency of urination and back pain. No fever. No chills. No hematuria. No hematochezia. As per the patient, she is feeling a lot better. No shortness of breath. No chest pain. No abdominal pain. No headache. No focal deficits. Twelve-point review of systems is negative except above. PHYSICAL EXAMINATION: VITAL SIGNS: Temperature 98.3, pulse 58, respiratory rate 20, blood pressure 119/58, pulse oximetry 98%. HEENT: Head: Normocephalic, atraumatic. Eyes: PERRLA. Extraocular movements intact. Conjunctivae clear. Nose patent. Mucous membranes are moist. NECK: Supple. No carotid bruits, JVD or thyromegaly. CHEST: Bilaterally symmetrical. HEART: S1, S2 positive. LUNGS: Clear to auscultation. ABDOMEN: Soft. Bowel sounds present. No organomegaly. EXTREMITIES: No edema. No cyanosis. NEUROLOGIC: The patient is awake, alert. Follows simple commands. MEDICATIONS: Tylenol, Cogentin, Depakote, Lovenox, Novolin, Lantus, Glucophage, LABORATORY DATA: White blood cells 12.0, hemoglobin 11.0, hematocrit 34.0, platelets 108. Sodium 139, potassium 3.2, BUN 12, creatinine 0.95, glucose 207. ASSESSMENT AND PLAN: Gram-negative septicemia; urinary tract infection; diabetes mellitus, not very well controlled; low back pain and right ischial , Neurologist is on the case. We will continue antibiotics as per Infectious Disease, Dr. Maria Guadalupe Vásquez. CAT scan of abdomen and pelvis ordered, done. Ear, Nose appreciated. Repeat labs. Continue present treatment. Gastrointestinal and deep venous thrombosis prophylaxis. We will follow up. Teressa Prakash MD MTDD
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
[2017-08-28] MEDS: (Novolog) Insulin Aspart, Recombinant 100 u/ml 10 ml vial SC SCH ×5 (08:10→22:28)
[2017-08-28 08:22] LABS: WHITE BLOOD COUNT 5.5 K/uL (4.8-10.8)
[2017-08-28] MEDS: Pantoprazole 40 mg EC Tab PO SCH ×2 (10:17→10:36)
[2017-08-28] MEDS: Divalproex 250 mg DR Tab PO SCH ×3 (10:25→17:23)
[2017-08-28] MEDS: Enoxaparin 40 mg Syringe SC SCH ×2 (10:26→10:36)
[2017-08-28] MEDS ORDERED: (Novolog) Insulin Aspart, Recombinant 100 u/ml 10 ml vial SC SCH (11:48)
[2017-08-28] MEDS ORDERED: Potassium Chloride 20 mEq/15 ml LIQ UD PO ONE (12:00)
--- NOTE | 2017-08-28 14:26 | CP.PCM.PN ---
Subjective - Date & Time of Evaluation Date of Evaluation: 08/28/17 Time of Evaluation: 14:25 - Subjective Subjective: CHIEF COMPLAINTS TODAY : afebrile, c/o Frequency of urination and back pain STATES NOT GETTING HER BP/XANAX PILLS. appears confused ROS. HEENT : N. Resp : No SOB wheezing, cough Cardio : No CP, PND orthopnea GI : No abd. 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 Musculoskel : chronic back pain. Ext. : Pedal pulses intact, no edema or calf pain Derm : N Psych : N. PE. Pt. is awake , anxious ,in no distress. V.S As noted in the chart Head ,ear nose,throat and eyes : Normal. Neck : Supple with normal carotids. Lungs: Clear air entry. Heart : S1 & S2 normal . . No murmur. S4 + Abd : Soft non tender with normal bowel sounds. Neuro : Moves all ext. with no localized deficit. Ext : No edema with intact pulses. Neg. calf tenderness Derm : No rashes or decubitus ulcer. Radiology/Labs . BLOOD CULTURE -+ve ESBL+VE E. COLI S-MERREM/GENTA URINE CULTURE-+VE E.COLI S -MEROPENEM/AMIKACIN/ & BHS-GRP B Asssessment : GRAM-NEGATIVE SEPTICEMIA UROSEPSIS NEPHROLITHIASIS LT. KIDNEY DIABETES MELLITUS. LOW BACK PAIN CHRONIC. ANXIETY/SCHIZOPHRENIA. Plan : PANCULTURES DC IV CEFEPIME. START IV MERREM 1 GM IVPB EVERY 8 HOURLY.08/27/17. ADD IV AMPICILLIN 2 G iv PIGGYBACK EVERY 8 HOURLY. 08/27/17. CASE DISCUSSED WITH KRISTINA SANTACRUZ. Objective - Vital Signs/Intake and Output Vital Signs (last 24 hours): Temp Pulse Resp BP Pulse Ox 98.6 F 86 20 129/71 96 08/28/17 06:00 08/28/17 00:00 08/28/17 00:00 08/28/17 00:00 08/28/17 00:00 Intake and Output: 08/28/17 08/28/17 06:59 18:59 Intake Total 850 Balance 850 - Medications Medications: Current Medications Acetaminophen (Tylenol 325mg Tab) 650 mg PO Q4H PRN PRN Reason: pain fever Last Admin: 08/26/17 17:10 Dose: 650 mg Benztropine Mesylate (Cogentin) 1 mg PO [facility] Last Admin: 08/27/17 21:42 Dose: 1 mg Divalproex Sodium (Depakote Dr) 250 mg PO BID [facility] Last Admin: 08/28/17 10:34 Dose: Not Given Enoxaparin Sodium (Lovenox) 40 mg SC DAILY [facility] Last Admin: 08/28/17 10:36 Dose: Not Given Gabapentin (Neurontin) 100 mg PO TID [facility] Last Admin: 08/28/17 13:56 Dose: Not Given Meropenem 1 gm/ Sodium (Chloride) 100 mls @ 100 mls/hr IVPB Q8 [facility] PRN Reason: Protocol Last Admin: 08/28/17 13:50 Dose: 100 mls/hr Ampicillin 2 gm/ Sodium (Chloride) 100 mls @ 200 mls/hr IVPB Q8H [facility] PRN Reason: Protocol Last Admin: 08/28/17 08:13 Dose: 200 mls/hr Insulin Aspart (Novolog) 0 unit SC [facility] PRN Reason: Protocol Last Admin: 08/28/17 12:15 Dose: 10 unit Insulin Glargine (Lantus) 15 unit SC [facility] Last Admin: 08/27/17 21:45 Dose: 15 units Metformin HCl (Glucophage) 500 mg PO BID [facility] Last Admin: 08/28/17 10:36 Dose: Not Given Pantoprazole Sodium (Protonix Ec Tab) 40 mg PO DAILY [facility] Last Admin: 08/28/17 10:36 Dose: Not Given Risperidone (Risperdal Tab) 1 mg PO [facility] Last Admin: 08/27/17 21:42 Dose: 1 mg Trazodone HCl (Desyrel) 50 mg PO [facility] Last Admin: 08/27/17 21:45 Dose: 50 mg - Labs Labs: 08/28/17 06:30 08/28/17 06:30 Assessment and Plan (1) Gram-neg septicemia Status: Acute (2) UTI (urinary tract infection) Status: Acute (3) Diabetes mellitus Status: Acute (4) Low back pain Status: Acute (5) Anxiety Status: Acute (6) Schizophrenia Status: Acute
[2017-08-28] MEDS: (Lantus) Insulin Glargine, Recombinant SC SCH (21:21)
[2017-08-29] MEDS: AMPicillin 2 GM in Sodium Chloride 0.9% 100 ML IVPB SCH ×2 (00:45→08:56)
--- NOTE | 2017-08-29 02:31 | PN ---
DATE: 08/28/2017 SUBJECTIVE: The patient was seen and examined on the bed side. She is on one to one. No nausea, vomiting, diarrhea. No hematuria, hematochezia. No swelling of the legs. No chest pain, no palpitation. No headache, no dizziness. PHYSICAL EXAMINATION: VITAL SIGNS: Temperature 98.6, pulse 86, respiratory rate 20, blood pressure 120/71, pulse oximetry 96. HEENT: Head, normocephalic, atraumatic. Eyes, PERRLA. Extraocular muscles intact. Conjunctivae clear. Nose patent. Mucous membranes moist. NECK: Supple. No carotid bruits. No JVD, thyromegaly. CHEST: No chest pain. HEART: S1 and S2 positive. LUNGS: Clear to auscultation. ABDOMEN: Soft. Positive bowel sounds. No organomegaly. EXTREMITIES: No edema, no cyanosis. NEUROLOGIC: The patient is awake, alert, moving all 4 extremities. No focal deficits. MEDICATIONS: Tylenol, Cogentin, Depakote, Lovenox, Neurontin, ampicillin, meropenem, insulin, metformin, Protonix, Risperdal. LABORATORY DATA: White blood cell is 5.5, hemoglobin is 10.3, hematocrit 29.7, platelets 84. Sodium 141, potassium 3.2, BUN 16, creatinine 0.7. Glucose 217 today. ASSESSMENT AND PLAN: Ms. Donna Garcia is a 67 years old female with anemia, hypokalemia, hyperglycemia, gram-negative septicemia, urinary tract infection, diabetes mellitus, low back pain, anxiety, schizophrenia. ID is on the case. Continue antibiotics as per ID. psyche is on the case. I reviewed the patient's abdomen and pelvic CT. Repeat labs. We will follow up. Teressa Prakash MD [facility]
[2017-08-29] MEDS: Meropenem 1 GM in Sodium Chloride 0.9% 100 ML IVPB SCH ×3 (05:15→21:26)
[2017-08-29] MEDS: guaiFENesin 100 mg/5 ml Syrup UD PO PRN (06:45)
[2017-08-29 07:39] LABS: HEMOGLOBIN 10.2 g/dL (11.0-16.0); MEAN CELL VOLUME 83.8 fL (81.0-99.0); MEAN CORPUSCULAR HEMOGLOBIN 28.6 pg (27.0-31.0); MEAN CORPUSCULAR HGB CONC 34.1 g/dL (33.0-37.0); MEAN PLATELET VOLUME 10.5 fL (7.2-11.7); RBC 3.56 Mil/uL (3.80-5.20); RED CELL DISTRIBUTION WIDTH 13.7 % (11.5-14.5); WHITE BLOOD COUNT 4.1 K/uL (4.8-10.8)
[2017-08-29 07:44] LABS: IRON 39 ug/dL (37-170)
[2017-08-29 07:49] LABS: BLOOD UREA NITROGEN 15 mg/dL (7-17); CALCIUM 8.7 mg/dl (8.6-10.4); GFR AFRICAN-AMERICAN > 60; GFR NON-AFRICAN AMERICAN > 60; HDL CHOLESTEROL 16 mg/dL (30-70)
[2017-08-29 07:54] LABS: % IRON SATURATION 17 (20-55); TOTAL IRON BINDING CAPACITY 226 ug/dL (250-450)
[2017-08-29 08:09] LABS: LDL CHOLESTEROL 94 mg/dL (0-129)
[2017-08-29] MEDS: (Novolog) Insulin Aspart, Recombinant 100 u/ml 10 ml vial SC SCH ×4 (08:55→22:02)
[2017-08-29 08:56] LABS: FOLATE > 20.0 ng/mL
[2017-08-29] MEDS: Potassium Chloride 20 mEq/15 ml LIQ UD PO SCH ×2 (10:09→13:59)
[2017-08-29] MEDS: Pantoprazole 40 mg EC Tab PO SCH (10:10)
[2017-08-29] MEDS: Divalproex 250 mg DR Tab PO SCH ×2 (10:11→17:36)
[2017-08-29] MEDS: Enoxaparin 40 mg Syringe SC SCH (10:11)
--- NOTE | 2017-08-29 11:43 | CARD ---
APPROVED REPORT EXAM: Two-dimensional and M-mode echocardiogram with Doppler and color Doppler. Other Information Quality : GoodRhythm : INDICATION Infection:Rule out subacute bacterial endocarditis Bacteremia 2D DIMENSIONS IVSd1.4 (0.7-1.1cm)LVDd4.4 (3.9-5.9cm) PWd1.3 (0.7-1.1cm)LVDs2.7 (2.5-4.0cm) FS (%) 38.8 %LVEF (%)69.4 (>50%) M-Mode DIMENSIONS Left Atrium (MM)3.63 (2.5-4.0cm)Aortic Root3.15 (2.2-3.7cm) Aortic Cusp Exc.1.86 (1.5-2.0cm) Mitral Valve MV E Pwqtsgum88.3cm/sMV A Eiltmnrd85.5cm/sE/A ratio0.9 TDI E/Lateral E'0.0E/Medial E'0.0 Tricuspid Valve TR Peak Zltcswxl441oj/sTR Peak Gr.34cqJrFBRR37ohGx LEFT VENTRICLE The left ventricle is normal size. There is mild concentric left ventricular hypertrophy. The left ventricular function is normal. The left ventricular ejection fraction is within the normal range. There is normal LV segmental wall motion. Tissue Doppler imaging reveals mild left ventricular diastolic dysfunction. Transmitral Doppler flow pattern is Grade I-abnormal relaxation pattern. No left ventricle thrombus noted on this study. There is no ventricular septal defect visualized. There is no left ventricular aneurysm. There is no mass noted in the left ventricle. RIGHT VENTRICLE The right ventricle is normal size. There is normal right ventricular wall thickness. The right ventricular systolic function is normal. ATRIA The left atrium size is normal. The right atrium size is normal. The interatrial septum is intact with no evidence for an atrial septal defect. AORTIC VALVE The aortic valve is normal in structure. No aortic regurgitation is present. There is no aortic valvular stenosis. There is no aortic valvular vegetation. MITRAL VALVE The mitral valve is normal in structure. There is no mitral valve stenosis. There is no mitral valve regurgitation noted. TRICUSPID VALVE The tricuspid valve is normal in structure. There is no tricuspid valve regurgitation noted. PULMONIC VALVE The pulmonary valve is normal in structure. There is no pulmonic valvular regurgitation. GREAT VESSELS The aortic root is normal in size. The ascending aorta is normal in size. The pulmonary artery is normal. The IVC is normal in size and collapses >50% with inspiration. PERICARDIAL EFFUSION There is no pericardial effusion. <Conclusion> There is mild concentric left ventricular hypertrophy. Tissue Doppler imaging reveals mild left ventricular diastolic dysfunction. Transmitral Doppler flow pattern is Grade I-abnormal relaxation pattern. LVEF IS 70%.
[2017-08-29] MEDS: AMPicillin 1 GM in Sodium Chloride 0.9% 100 ML IVPB SCH ×3 (13:00→20:19)
[2017-08-29 15:46] LABS: SQUAMOUS EPITHIAL 3 /hpf (0-5); URINE BILIRUBIN NEGATIVE (NEGATIVE); URINE BLOOD 2+ (NEGATIVE); URINE CLARITY Hazy (Clear); URINE COLOR Yellow (YELLOW); URINE GLUCOSE (UA) 1+ mg/dL (Normal); URINE PROTEIN NEGATIVE (NEGATIVE); URINE UROBILINOGEN NORMAL mg/dL (0.2-1.0)
[2017-08-29 15:47] LABS: URINE LEUKOCYTE ESTERASE 2+ Leu/uL (Negative)
--- NOTE | 2017-08-29 18:02 | CP.PCM.PN ---
Subjective - Date & Time of Evaluation Date of Evaluation: 08/29/17 Time of Evaluation: 18:01 - Subjective Subjective: CHIEF COMPLAINTS TODAY : afebrile, c/o backpain.( hx of hematoma which had to be evacuated as per pt . It was not a tumor ! PER PT ) NOT GETTING IV ABX -POOR IV ACCESS. PT FOR MIDLINE OR PICC IN AM ROS. HEENT : N. Resp : No SOB wheezing, cough Cardio : No CP, PND orthopnea GI : No abd. 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 Musculoskel : chronic back pain. Ext. : Pedal pulses intact, no edema or calf pain Derm : N Psych : N. PE. Pt. is awake , anxious ,in no distress. V.S As noted in the chart Head ,ear nose,throat and eyes : Normal. Neck : Supple with normal carotids. Lungs: Clear air entry. Heart : S1 & S2 normal . . No murmur. S4 + Abd : Soft non tender with normal bowel sounds. Neuro : Moves all ext. with no localized deficit. Ext : No edema with intact pulses. Neg. calf tenderness Derm : No rashes or decubitus ulcer. Radiology/Labs . BLOOD CULTURE -+ve ESBL+VE E. COLI S-MERREM/GENTA URINE CULTURE-+VE E.COLI S -MEROPENEM/AMIKACIN/ & BHS-GRP B Asssessment : GRAM-NEGATIVE SEPTICEMIA UROSEPSIS NEPHROLITHIASIS LT. KIDNEY DIABETES MELLITUS. LOW BACK PAIN CHRONIC. ANXIETY/SCHIZOPHRENIA. Plan : PANCULTURES DC IV CEFEPIME. ON IV MERREM 1 GM IVPB EVERY 8 HOURLY.08/27/17. DECREASE IV AMPICILLIN 1 G iv PIGGYBACK EVERY 8 HOURLY. 08/27/17. LOW PLATELETS NOTED. REPEAT BLOOD CULTURES X 2 SETS IN AM . 2D ECHO R/O SBE PT WILL NEED 14 DAYS IV ABX IF 2D ECHO -VE Objective - Vital Signs/Intake and Output Vital Signs (last 24 hours): Temp Pulse Resp BP Pulse Ox 98.3 F 90 20 142/81 96 08/29/17 16:00 08/29/17 16:00 08/29/17 16:00 08/29/17 16:00 08/29/17 16:00 Intake and Output: 08/29/17 08/29/17 06:59 18:59 Intake Total 500 400 Balance 500 400 - Medications Medications: Current Medications Acetaminophen (Tylenol 325mg Tab) 650 mg PO Q4H PRN PRN Reason: pain fever Last Admin: 08/26/17 17:10 Dose: 650 mg Benztropine Mesylate (Cogentin) 1 mg PO [facility] Last Admin: 08/28/17 21:15 Dose: 1 mg Divalproex Sodium (Depakote Dr) 250 mg PO BID [facility] Last Admin: 08/29/17 17:36 Dose: 250 mg Enoxaparin Sodium (Lovenox) 40 mg SC DAILY [facility] Last Admin: 08/29/17 10:11 Dose: 40 mg Gabapentin (Neurontin) 100 mg PO TID [facility] Last Admin: 08/29/17 17:35 Dose: 100 mg Guaifenesin (Robitussin) 100 mg PO Q4H PRN PRN Reason: Cough Last Admin: 08/29/17 06:45 Dose: 100 mg Meropenem 1 gm/ Sodium (Chloride) 100 mls @ 100 mls/hr IVPB Q8 [facility] PRN Reason: Protocol Last Admin: 08/29/17 15:25 Dose: Not Given Ampicillin 1 gm/ Sodium (Chloride) 100 mls @ 200 mls/hr IVPB Q8H [facility] PRN Reason: Protocol Last Admin: 08/29/17 13:00 Dose: Not Given Insulin Aspart (Novolog) 0 unit SC [facility] PRN Reason: Protocol Last Admin: 08/29/17 16:30 Dose: 3 unit Insulin Glargine (Lantus) 15 unit SC [facility] Last Admin: 08/28/17 21:21 Dose: 15 units Metformin HCl (Glucophage) 500 mg PO BID [facility] Last Admin: 08/29/17 17:35 Dose: 500 mg Pantoprazole Sodium (Protonix Ec Tab) 40 mg PO DAILY [facility] Last Admin: 08/29/17 10:10 Dose: 40 mg Risperidone (Risperdal Tab) 1 mg PO [facility] Last Admin: 08/28/17 21:15 Dose: 1 mg Trazodone HCl (Desyrel) 50 mg PO [facility] Last Admin: 08/28/17 21:15 Dose: 50 mg - Labs Labs: 08/29/17 07:22 08/29/17 07:22 Assessment and Plan (1) Gram-neg septicemia Status: Acute (2) UTI (urinary tract infection) Status: Acute (3) Diabetes mellitus Status: Acute (4) Low back pain Status: Acute (5) Anxiety Status: Acute (6) Schizophrenia Status: Acute
[2017-08-29] MEDS: (Lantus) Insulin Glargine, Recombinant SC SCH (21:29)
[2017-08-30] MEDS: guaiFENesin 100 mg/5 ml Syrup UD PO PRN (03:15)
[2017-08-30] MEDS: AMPicillin 1 GM in Sodium Chloride 0.9% 100 ML IVPB SCH ×3 (05:04→21:27)
[2017-08-30] MEDS: Meropenem 1 GM in Sodium Chloride 0.9% 100 ML IVPB SCH ×3 (05:47→22:23)
--- NOTE | 2017-08-30 07:17 | PN ---
DATE: 08/29/2017 SUBJECTIVE: The patient was seen and examined at the bedside. The patient is still on one-to-one and is complaining about nausea, vomiting, diarrhea . No swelling of the legs. No chest pain or palpitations. No headache or dizziness. PHYSICAL EXAMINATION: VITAL SIGNS: Temperature 98.3, pulse 90, respiratory rate 20, blood pressure 142/81, pulse oximetry is 96%. HEENT: Head normocephalic, atraumatic. Eyes: PERRLA. EOMs intact. Conjunctivae clear. Nose patent. Mucus membranes moist. NECK: Supple. No carotid bruits, JVD, or thyromegaly. CHEST: Bilaterally symmetrical. HEART: S1, S2 positive. LUNGS: Clear to auscultation. ABDOMEN: Soft. Positive bowel sounds. No organomegaly. EXTREMITIES: No edema, no cyanosis. NEUROLOGY: The patient is awake and alert. Moving all 4 extremities. No focal deficits. MEDICATIONS: Acetaminophen, Cogentin, Depakote, Neurontin, Robitussin, NovoLog, Lantus, Glucophage, and Risperidone. LABORATORY DATA: White blood cell count 12.1, hemoglobin 10.2, hematocrit 29.8, platelets 98. Sodium 143, potassium 3.2, BUN 16, creatinine noted , glucose 200. ASSESSMENT AND PLAN: lady with leukopenia, anemia, thrombocytopenia, actually pancytopenia, hypokalemia, hyperglycemia, Gram-negative septicemia, urinary tract infection, uncontrolled diabetes mellitus. Repeat labs. We will follow up. Teressa Prakash MD [facility]
[2017-08-30] MEDS: (Novolog) Insulin Aspart, Recombinant 100 u/ml 10 ml vial SC SCH ×4 (07:46→21:26)
[2017-08-30] MEDS: Enoxaparin 40 mg Syringe SC SCH (09:37)
[2017-08-30] MEDS: Pantoprazole 40 mg EC Tab PO SCH (09:38)
[2017-08-30] MEDS: Divalproex 250 mg DR Tab PO SCH ×2 (09:38→17:32)
[2017-08-30] MEDS: (Lantus) Insulin Glargine, Recombinant SC SCH (21:28)
[2017-08-31] MEDS: Meropenem 1 GM in Sodium Chloride 0.9% 100 ML IVPB SCH ×4 (05:02→23:02)
[2017-08-31] MEDS: AMPicillin 1 GM in Sodium Chloride 0.9% 100 ML IVPB SCH ×3 (05:02→21:51)
--- NOTE | 2017-08-31 05:18 | PN ---
DATE: 08/30/2017 SUBJECTIVE: The patient was seen and examined at the bedside. Sitting on the chair having dinner, she is on one to one. No nausea, vomiting or diarrhea. No hematuria or hematochezia. No swelling of the legs. No chest pain. No palpitation. Still complaining about back pain. PHYSICAL EXAMINATION: VITAL SIGNS: Temperature 97.6, pulse 76, respiratory rate 20, blood pressure 115/74. HEENT: Head normocephalic, atraumatic. Eyes, PERRLA. Extraocular muscles intact. Conjunctivae clear. Nose patent. Mucus membranes moist. NECK: Supple. No carotid bruits. No JVD or thyromegaly. CHEST: Bilaterally symmetrical. HEART: S1, S2 positive. LUNGS: Clear to auscultation. ABDOMEN: Soft. Positive bowel sounds. No hepatosplenomegaly. EXTREMITIES: No edema, no cyanosis. NEUROLOGY: The patient is awake, alert, moving all 4 extremities. No focal deficits. MEDICATIONS: Cogentin, Depakote, trazodone, Glucophage, Lantus, Lovenox, meropenem, Neurontin, NovoLog, Protonix, Risperdal, Robitussin and Tylenol. LABORATORY DATA: White blood cells 4.1, hemoglobin 10.2, hematocrit 29.8 and platelets 88, glucose 195, 230. ASSESSMENT AND PLAN: Donna Marcus is 67 years old lady with leukopenia, anemia, hyperglycemia, has history of schizophrenia, gram negative septicemia, urinary tract infection, uncontrolled diabetes mellitus. Dr. Maria Guadalupe Vásquez is on the case. Continue present antibiotics. Continue sliding scale. Discussion done with the patient. Repeat labs. We will follow. Teressa Prakash MD
[2017-08-31] MEDS: (Novolog) Insulin Aspart, Recombinant 100 u/ml 10 ml vial SC SCH ×4 (08:00→21:51)
[2017-08-31] MEDS: Pantoprazole 40 mg EC Tab PO SCH (10:05)
[2017-08-31] MEDS: Enoxaparin 40 mg Syringe SC SCH (10:06)
[2017-08-31] MEDS: Divalproex 250 mg DR Tab PO SCH ×2 (10:06→18:29)
--- NOTE | 2017-08-31 14:10 | CP.PCM.PN ---
Subjective - Date & Time of Evaluation Date of Evaluation: 08/31/17 Time of Evaluation: 14:09 - Subjective Subjective: CHIEF COMPLAINTS TODAY : afebrile, c/o backpain.( hx of hematoma which had to be evacuated as per pt . It was not a tumor ! PER PT ) NOT GETTING IV ABX -POOR IV ACCESS. PT FOR MIDLINE OR PICC IN AM ROS. HEENT : N. Resp : No SOB wheezing, cough Cardio : No CP, PND orthopnea GI : No abd. 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 Musculoskel : chronic back pain. Ext. : Pedal pulses intact, no edema or calf pain Derm : N Psych : N. PE. Pt. is awake , anxious ,in no distress. V.S As noted in the chart Head ,ear nose,throat and eyes : Normal. Neck : Supple with normal carotids. Lungs: Clear air entry. Heart : S1 & S2 normal . . No murmur. S4 + Abd : Soft non tender with normal bowel sounds. Neuro : Moves all ext. with no localized deficit. Ext : No edema with intact pulses. Neg. calf tenderness Derm : No rashes or decubitus ulcer. Radiology/Labs . 2D ECHO -VE VEGS N VALVES EF 70% REPEAT BLOOD CULTURES _VE 48HRS URINE CULTURE +VE YEAST BLOOD CULTURE -+ve ESBL+VE E. COLI S-MERREM/GENTA URINE CULTURE-+VE E.COLI S -MEROPENEM/AMIKACIN/ & BHS-GRP B Asssessment : GRAM-NEGATIVE SEPTICEMIA UROSEPSIS NEPHROLITHIASIS LT. KIDNEY DIABETES MELLITUS. LOW BACK PAIN CHRONIC. ANXIETY/SCHIZOPHRENIA. Plan : CASE DISCUSSED W TABLE ASSEMBLER METAL MS SEGOVIA. CONTINUE IV ABX IN [facility] DISCUSSED X 7DAYS MORE ON IV MERREM 1 GM IVPB EVERY 8 HOURLY.08/27/17. ON IV AMPICILLIN 1 G iv PIGGYBACK EVERY 8 HOURLY. 08/27/17 ADD PO DIFLUCAN 200MG PO OD X 5DAYS 08/31/17. MONITOR LFTS/CBC/RENALFUNCTION CLOSELY. WILL F/U PT WHILE IN HOUSE. Objective - Vital Signs/Intake and Output Vital Signs (last 24 hours): Temp Pulse Resp BP Pulse Ox 98.4 F 83 20 134/86 96 08/31/17 00:00 08/31/17 00:00 08/31/17 00:00 08/31/17 00:00 08/31/17 00:00 Intake and Output: 08/31/17 08/31/17 06:59 18:59 Intake Total 500 Balance 500 - Medications Medications: Current Medications Acetaminophen (Tylenol 325mg Tab) 650 mg PO Q4H PRN PRN Reason: pain fever Last Admin: 08/31/17 05:33 Dose: 650 mg Benztropine Mesylate (Cogentin) 1 mg PO [facility] Last Admin: 08/30/17 21:28 Dose: 1 mg Divalproex Sodium (Depakote Dr) 250 mg PO BID [facility] Last Admin: 08/31/17 10:06 Dose: 250 mg Enoxaparin Sodium (Lovenox) 40 mg SC DAILY [facility] Last Admin: 08/31/17 10:06 Dose: 40 mg Gabapentin (Neurontin) 100 mg PO TID [facility] Last Admin: 08/31/17 13:27 Dose: 100 mg Guaifenesin (Robitussin) 100 mg PO Q4H PRN PRN Reason: Cough Last Admin: 08/30/17 03:15 Dose: 100 mg Meropenem 1 gm/ Sodium (Chloride) 100 mls @ 100 mls/hr IVPB Q8 [facility] PRN Reason: Protocol Last Admin: 08/31/17 13:39 Dose: 100 mls/hr Ampicillin 1 gm/ Sodium (Chloride) 100 mls @ 200 mls/hr IVPB Q8H [facility] PRN Reason: Protocol Last Admin: 08/31/17 13:27 Dose: 200 mls/hr Insulin Aspart (Novolog) 0 unit SC [facility] PRN Reason: Protocol Last Admin: 08/31/17 12:00 Dose: 2 unit Insulin Glargine (Lantus) 15 unit SC [facility] Last Admin: 08/30/17 21:28 Dose: 15 units Metformin HCl (Glucophage) 500 mg PO BID [facility] Last Admin: 08/31/17 10:06 Dose: 500 mg Pantoprazole Sodium (Protonix Ec Tab) 40 mg PO DAILY [facility] Last Admin: 08/31/17 10:05 Dose: 40 mg Risperidone (Risperdal Tab) 1 mg PO [facility] Last Admin: 08/30/17 21:29 Dose: 1 mg Trazodone HCl (Desyrel) 50 mg PO [facility] Last Admin: 08/30/17 21:29 Dose: 50 mg - Labs Labs: 08/29/17 07:22 08/29/17 07:22 Assessment and Plan (1) Gram-neg septicemia Status: Acute (2) UTI (urinary tract infection) Status: Acute (3) Diabetes mellitus Status: Acute (4) Low back pain Status: Acute (5) Anxiety Status: Acute (6) Schizophrenia Status: Acute
--- NOTE | 2017-08-31 15:56 | CP.PCM.PN ---
Subjective - Date & Time of Evaluation Date of Evaluation: 08/31/17 Time of Evaluation: 15:52 - Subjective Subjective: PT CLEARED FOR D/C TO [facility] TODAY PER DR. HASTINGS. PT ALSO CLEARED BY DR. FAIR FOR D/C. PER MY CONVERSATION WITH DR. FAIR YESTERDAY, CONTINUE AMPICILLIN 1 GM IV Q8 HOURS AND MEROPENEM 1 GM IV Q8 HOURS BOTH FOR 7 MORE DAYS (08/30/17-09/06/17 ). OF TODAY PT NEEDS 6 MORE DAYS. URINE CX NOW + YEAST; DR. FAIR MADE AWARE AND WILL ADD DIFLUCAN 200 MG PO QD X5 DAYS (STARTED BEFORE D/C TODAY). PT TO GO WITH HEPLOCK IN PLACE AND CAN BE CHANGED PRN UNTIL ABX COMPLETED. SW AND CM AWARE OF D/C. TO ARRANGE TRANSPORTATION. NO FURTHER ORDERS. -CONTINUE MEDICATIONS PER THE MED RED FORM---CHANGES CAN BE MADE BY ATTENDING. -PER DR. FAIR (ID) CONTINUE: AMPICILLIN 1 GM IV Q8 HOURS AND MEROPENEM 1 GM IV 18 HOURS---CONTINUE BOTH FOR 6 MORE DAYS (LAST DAY TO BE GIVEN ON 09/06/17). -ALSO PER DR. FAIR: DIFLUCAN 200 MG PO DAILY X5 DAYS (STARTED ON 08/31/17; LAST DOSE TO BE GIVE ON 09/04/17) -[facility]OCK CHANGE NEEDED UNTIL ANTIBIOTICS DONE. -FOR QUESTIONS REGARDING RECENT HOSPITALIZATION, CONTACT DR. HASTINGS'S OFFICE. Objective - Vital Signs/Intake and Output Vital Signs (last 24 hours): Temp Pulse Resp BP Pulse Ox 98.4 F 83 20 134/86 96 08/31/17 00:00 08/31/17 00:00 08/31/17 00:00 08/31/17 00:00 08/31/17 00:00 Intake and Output: 08/31/17 08/31/17 06:59 18:59 Intake Total 500 600 Balance 500 600 - Medications Medications: Current Medications Acetaminophen (Tylenol 325mg Tab) 650 mg PO Q4H PRN PRN Reason: pain fever Last Admin: 08/31/17 05:33 Dose: 650 mg Benztropine Mesylate (Cogentin) 1 mg PO HS [facility] Last Admin: 08/30/17 21:28 Dose: 1 mg Divalproex Sodium (Depakote Dr) 250 mg PO BID [facility] Last Admin: 08/31/17 10:06 Dose: 250 mg Enoxaparin Sodium (Lovenox) 40 mg SC DAILY [facility] Last Admin: 08/31/17 10:06 Dose: 40 mg Gabapentin (Neurontin) 100 mg PO TID [facility] Last Admin: 08/31/17 13:27 Dose: 100 mg Guaifenesin (Robitussin) 100 mg PO Q4H PRN PRN Reason: Cough Last Admin: 08/30/17 03:15 Dose: 100 mg Meropenem 1 gm/ Sodium (Chloride) 100 mls @ 100 mls/hr IVPB Q8 [facility] PRN Reason: Protocol Last Admin: 08/31/17 13:39 Dose: 100 mls/hr Ampicillin 1 gm/ Sodium (Chloride) 100 mls @ 200 mls/hr IVPB Q8H [facility] PRN Reason: Protocol Last Admin: 08/31/17 13:27 Dose: 200 mls/hr Insulin Aspart (Novolog) 0 unit SC [facility] PRN Reason: Protocol Last Admin: 08/31/17 12:00 Dose: 2 unit Insulin Glargine (Lantus) 15 unit SC [facility] Last Admin: 08/30/17 21:28 Dose: 15 units Metformin HCl (Glucophage) 500 mg PO BID [facility] Last Admin: 08/31/17 10:06 Dose: 500 mg Pantoprazole Sodium (Protonix Ec Tab) 40 mg PO DAILY [facility] Last Admin: 08/31/17 10:05 Dose: 40 mg Risperidone (Risperdal Tab) 1 mg PO [facility] Last Admin: 08/30/17 21:29 Dose: 1 mg Trazodone HCl (Desyrel) 50 mg PO [facility] Last Admin: 08/30/17 21:29 Dose: 50 mg - Labs Labs: 08/29/17 07:22 08/29/17 07:22
[2017-08-31] MEDS: (Lantus) Insulin Glargine, Recombinant SC SCH (21:50)
[2017-09-01] MEDS: AMPicillin 1 GM in Sodium Chloride 0.9% 100 ML IVPB SCH ×3 (04:25→20:26)
[2017-09-01] MEDS: guaiFENesin 100 mg/5 ml Syrup UD PO PRN (04:25)
[2017-09-01] MEDS: Meropenem 1 GM in Sodium Chloride 0.9% 100 ML IVPB SCH ×3 (05:06→21:31)
[2017-09-01] MEDS: (Novolog) Insulin Aspart, Recombinant 100 u/ml 10 ml vial SC SCH ×4 (08:16→21:32)
[2017-09-01] MEDS: Pantoprazole 40 mg EC Tab PO SCH (10:05)
[2017-09-01] MEDS: Enoxaparin 40 mg Syringe SC SCH (10:06)
[2017-09-01] MEDS: Divalproex 250 mg DR Tab PO SCH ×2 (10:07→17:14)
--- NOTE | 2017-09-01 19:56 | CP.PCM.PN ---
Subjective - Date & Time of Evaluation Date of Evaluation: 09/01/17 Time of Evaluation: 19:56 - Subjective Subjective: CHIEF COMPLAINTS TODAY : afebrile, CLINICALLY IMPROVING S/P MIDLINE PLACEMENT 08/29/17 ROS. HEENT : N. Resp : No SOB wheezing, cough Cardio : No CP, PND orthopnea GI : No abd. 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 Musculoskel : chronic back pain. Ext. : Pedal pulses intact, no edema or calf pain Derm : N Psych : N. PE. Pt. is awake , anxious ,in no distress. V.S As noted in the chart Head ,ear nose,throat and eyes : Normal. Neck : Supple with normal carotids. Lungs: Clear air entry. Heart : S1 & S2 normal . . No murmur. S4 + Abd : Soft non tender with normal bowel sounds. Neuro : Moves all ext. with no localized deficit. Ext : No edema with intact pulses. Neg. calf tenderness Derm : No rashes or decubitus ulcer. Radiology/Labs . 2D ECHO -VE VEGS N VALVES EF 70% REPEAT BLOOD CULTURES _VE 48HRS URINE CULTURE +VE YEAST BLOOD CULTURE -+ve ESBL+VE E. COLI S-MERREM/GENTA URINE CULTURE-+VE E.COLI S -MEROPENEM/AMIKACIN/ & BHS-GRP B Asssessment : GRAM-NEGATIVE SEPTICEMIA UROSEPSIS NEPHROLITHIASIS LT. KIDNEY DIABETES MELLITUS. LOW BACK PAIN CHRONIC. ANXIETY/SCHIZOPHRENIA. Plan : CASE DISCUSSED W CSR TECHNICIAN MS SEGOVIA. CONTINUE IV ABX IN [facility] DISCUSSED X 7DAYS MORE ON IV MERREM 1 GM IVPB EVERY 8 HOURLY.08/27/17. ON IV AMPICILLIN 1 G iv PIGGYBACK EVERY 8 HOURLY. 08/27/17 ADD PO DIFLUCAN 200MG PO OD X 5DAYS 08/31/17. Objective - Vital Signs/Intake and Output Vital Signs (last 24 hours): Temp Pulse Resp BP Pulse Ox 98.4 F 77 20 155/89 H 98 09/01/17 15:15 09/01/17 15:15 09/01/17 15:15 09/01/17 15:15 09/01/17 15:15 Intake and Output: 09/01/17 09/02/17 18:59 06:59 Intake Total 350 Balance 350 - Medications Medications: Current Medications Acetaminophen (Tylenol 325mg Tab) 650 mg PO Q4H PRN PRN Reason: pain fever Last Admin: 09/01/17 00:36 Dose: 650 mg Benztropine Mesylate (Cogentin) 1 mg PO [facility] Last Admin: 08/31/17 21:48 Dose: 1 mg Divalproex Sodium (Depakote Dr) 250 mg PO BID [facility] Last Admin: 09/01/17 17:14 Dose: 250 mg Enoxaparin Sodium (Lovenox) 40 mg SC DAILY [facility] Last Admin: 09/01/17 10:06 Dose: 40 mg Gabapentin (Neurontin) 100 mg PO TID [facility] Last Admin: 09/01/17 17:13 Dose: 100 mg Guaifenesin (Robitussin) 100 mg PO Q4H PRN PRN Reason: Cough Last Admin: 09/01/17 04:25 Dose: 100 mg Meropenem 1 gm/ Sodium (Chloride) 100 mls @ 100 mls/hr IVPB Q8 [facility] PRN Reason: Protocol Last Admin: 09/01/17 14:15 Dose: 100 mls/hr Ampicillin 1 gm/ Sodium (Chloride) 100 mls @ 200 mls/hr IVPB Q8H [facility] PRN Reason: Protocol Last Admin: 09/01/17 12:50 Dose: 200 mls/hr Insulin Aspart (Novolog) 0 unit SC [facility] PRN Reason: Protocol Last Admin: 09/01/17 17:14 Dose: 2 unit Insulin Glargine (Lantus) 15 unit SC [facility] Last Admin: 08/31/17 21:50 Dose: Not Given Metformin HCl (Glucophage) 500 mg PO BID [facility] Last Admin: 09/01/17 17:14 Dose: 500 mg Pantoprazole Sodium (Protonix Ec Tab) 40 mg PO DAILY [facility] Last Admin: 09/01/17 10:05 Dose: 40 mg Risperidone (Risperdal Tab) 1 mg PO [facility] Last Admin: 08/31/17 21:48 Dose: 1 mg Trazodone HCl (Desyrel) 50 mg PO [facility] Last Admin: 08/31/17 21:48 Dose: 50 mg - Labs Labs: 08/29/17 07:22 08/29/17 07:22 Assessment and Plan (1) Gram-neg septicemia Status: Acute (2) UTI (urinary tract infection) Status: Acute (3) Diabetes mellitus Status: Acute (4) Low back pain Status: Acute (5) Anxiety Status: Acute (6) Schizophrenia Status: Acute
[2017-09-01] MEDS: (Lantus) Insulin Glargine, Recombinant SC SCH (21:32)
[2017-09-02] MEDS: Meropenem 1 GM in Sodium Chloride 0.9% 100 ML IVPB SCH ×3 (05:15→21:39)
[2017-09-02] MEDS: AMPicillin 1 GM in Sodium Chloride 0.9% 100 ML IVPB SCH ×2 (06:15→14:29)
[2017-09-02] MEDS: (Novolog) Insulin Aspart, Recombinant 100 u/ml 10 ml vial SC SCH ×4 (08:14→21:39)
[2017-09-02] MEDS: Pantoprazole 40 mg EC Tab PO SCH (09:55)
[2017-09-02] MEDS: Enoxaparin 40 mg Syringe SC SCH (09:55)
[2017-09-02] MEDS: Divalproex 250 mg DR Tab PO SCH ×2 (09:56→17:17)
[2017-09-02] MEDS: Amoxicillin-Clav 875-125 mg Tab PO SCH (21:38)
[2017-09-02] MEDS: (Lantus) Insulin Glargine, Recombinant SC SCH (21:39)
--- NOTE | 2017-09-02 23:55 | PN ---
DATE: SUBJECTIVE: The patient is a 67-year-old female. The patient is seen and examined at bedside, still on one-to-one, complaining about back pain. No nausea, vomiting, or diarrhea. No hematuria or hematochezia. No headache. No dizziness. Denies any chest pain or palpitation. Has chronic back pain. PHYSICAL EXAMINATION: VITAL SIGNS: Temperature 98.4, pulse 77, respiratory rate 20, blood pressure 135/89, pulse oximetry 98. HEENT: Head is normocephalic, atraumatic. Eyes: PERRLA. EOMs intact. Conjunctivae clear. Nose is patent. Mucous membranes moist. NECK: Supple. No carotid bruit, JVD or thyromegaly. CHEST: Bilaterally symmetrical. HEART: S1, S2 positive. LUNGS: Clear to auscultation. ABDOMEN: Soft. Bowel sounds positive. No organomegaly. EXTREMITIES: No edema, no cyanosis. NEUROLOGIC: The patient is awake, alert. Moving all 4 extremities. No focal deficit. MEDICATIONS: Tylenol, Cogentin, Depakote, Lovenox, Neurontin, NovoLog, Lantus, Glucophage, Protonix. LABORATORY DATA: White blood cells 4.1, hemoglobin 10.2, hematocrit 29.2, platelets 58. Sodium 146, potassium 3.2, BUN 16, creatinine 0.6, glucose 200. ASSESSMENT AND PLAN: Mrs. Donna Garcia is a 67-year-old lady with leukopenia, anemia, thrombocytopenia, actually pancytopenia, hypokalemia, hyperglycemia. Has gram-negative septicemia. Getting antibiotics as per Infectious Disease. Urinary tract infection, diabetes mellitus, low back pain, anxiety, schizophrenia, history of nephrolithiasis, urosepsis. Discussed plan with the patient's nurse and patient herself. The patient has complete seven more days of antibiotics. Continue Merrem, ampicillin, and Diflucan. Gastrointestinal and deep venous thrombosis prophylaxis. Waiting for the subacute rehab transfer for reconditioning and completing of antibiotics. Teressa Prakash MD [facility]
[2017-09-03 06:09] LABS: SQUAMOUS EPITHIAL < 1 /hpf (0-5); URINE BILIRUBIN NEGATIVE (NEGATIVE); URINE BLOOD NEGATIVE (NEGATIVE); URINE CLARITY Clear (Clear); URINE COLOR Colorless (YELLOW); URINE GLUCOSE (UA) NORMAL (Normal); URINE LEUKOCYTE ESTERASE NEG Leu/uL (Negative); URINE PROTEIN NEGATIVE (NEGATIVE); URINE UROBILINOGEN NORMAL mg/dL (0.2-1.0)
[2017-09-03] MEDS: Meropenem 1 GM in Sodium Chloride 0.9% 100 ML IVPB SCH ×3 (06:15→21:44)
[2017-09-03] MEDS: (Novolog) Insulin Aspart, Recombinant 100 u/ml 10 ml vial SC SCH ×4 (07:51→21:42)
[2017-09-03] MEDS: Pantoprazole 40 mg EC Tab PO SCH (10:14)
[2017-09-03] MEDS: Amoxicillin-Clav 875-125 mg Tab PO SCH (10:14)
[2017-09-03] MEDS: Divalproex 250 mg DR Tab PO SCH ×2 (10:15→17:19)
[2017-09-03] MEDS: AMPicillin 1 GM in Sodium Chloride 0.9% 100 ML IV SCH (21:00)
[2017-09-03] MEDS: (Lantus) Insulin Glargine, Recombinant SC SCH (21:44)
--- NOTE | 2017-09-04 05:17 | PN ---
DATE: 09/03/2017 SUBJECTIVE: The patient was seen and examined at the bedside on 09/03/2017, looking comfortable. No nausea, vomiting, or diarrhea. No hematuria or hematochezia. No headache or dizziness. Sometimes is getting excited, still on one-to-one. No fever. No chills. PHYSICAL EXAMINATION: VITAL SIGNS: Temperature 98.1, pulse 75, blood pressure 150/57, respiratory rate 20. HEENT: Head, normocephalic, atraumatic. Eyes: PERRLA. Extraocular muscles intact. Conjunctivae clear. Nose patent. Mucous membranes moist. NECK: Supple. No carotid bruits. No JVD or thyromegaly. CHEST: Bilaterally symmetrical. HEART: S1, S2 positive. LUNGS: Clear to auscultation. ABDOMEN: Soft, positive bowel sounds. No organomegaly. EXTREMITIES: No edema. No cyanosis. NEUROLOGIC: The patient is awake, and alert, moving all 4 extremities. No focal deficits. MEDICATIONS: Ampicillin, NS, Cogentin, Depakote, trazodone, Glucophage, Lantus, meropenem, Neurontin, NovoLog, Protonix, Risperdal, Tylenol, tramadol. LABORATORY DATA: We do not have recent labs today, but I reviewed old labs. ASSESSMENT AND PLAN: Ms. Donna Garcia is a 67-year-old lady with leukopenia, anemia, uncontrolled diabetes mellitus, iron deficiency, hemoglobin A1c is 10.2, hypertriglyceridemia, has urinary tract infection, getting antibiotics as per Dr. Thalia Lerma, has gram-negative septicemia, low back pain, anxiety, schizophrenia, history of nephrolithiasis. Discussion done with the nursing staff and patient. Psychiatry is on the case for patient's anxiety. Infectious Disease is on the case for antibiotics. The patient is supposed to go to subacute rehab on Sunday, but at the moment, the patient decided not to go to [facility] now. Sunday, we will talk to the social workers again to get some alternate ,He can be transferred to [facility] for continuity of care. We will follow. Teressa Prakash MD ROM
[2017-09-04] MEDS: AMPicillin 1 GM in Sodium Chloride 0.9% 100 ML IV SCH ×3 (05:30→21:00)
[2017-09-04] MEDS: Meropenem 1 GM in Sodium Chloride 0.9% 100 ML IVPB SCH ×3 (06:30→21:33)
[2017-09-04] MEDS: (Novolog) Insulin Aspart, Recombinant 100 u/ml 10 ml vial SC SCH ×4 (07:53→21:36)
--- NOTE | 2017-09-04 07:55 | PN ---
DATE: 08/31/2017 SUBJECTIVE: The patient is a 67-year-old female. The patient is seen and examined at the bedside, looking comfortable. The patient was seen on 08/31/2017. No nausea, vomiting, or diarrhea. Complaining of back pain. No hematuria or hematochezia. No more fever since admission. PHYSICAL EXAMINATION: VITAL SIGNS: Temperature 98.4, pulse 83, respiratory rate 20, blood pressure 134/86, and pulse oximetry 96%. HEENT: Head normocephalic, atraumatic. Eyes, PERRLA. Extraocular muscles intact. Conjunctivae clear. Nose Patent. Mucous membranes moist. NECK: Supple. No carotid bruits , CHEST: Bilaterally symmetrical. HEART: S1 and S2 positive. LUNGS: Clear to auscultation. ABDOMEN: Soft. Bowel sounds positive. No organomegaly. EXTREMITIES: No edema, no cyanosis. NEUROLOGIC: The patient is awake and alert. Moving all 4 extremities. No focal deficit. MEDICATIONS: Tylenol, Depakote, Lovenox, Robitussin, meropenem, insulin, metformin, Protonix, Risperdal, and trazodone. LABORATORY DATA: White blood cells 4.1, hemoglobin 10.2, hematocrit 29.2, Sodium 142, potassium 3.2, BUN 15, creatinine 0.6, and glucose 200. ASSESSMENT AND PLAN: The patient is a 67-year-old female with leukopenia, anemia, thrombocytopenia, actually pancytopenia, hypokalemia, hyperglycemia. Has diabetes mellitus, low back pain, anxiety, schizophrenia, gram-negative septicemia, urinary tract infection. Dr. Maria Guadalupe Vásquez is giving antibiotics. Will continue antibiotics as per ID. The patient is seen by psychiatrist, Dr. Dev Ryder. The patient has schizophrenia. Out of bed, physical therapy, repeat labs, and will follow up. Teressa Prakash MD MTDD
--- NOTE | 2017-09-04 07:57 | PN ---
DATE: 09/01/2017 SUBJECTIVE: The patient is a 67-year-old female. The patient was seen and examined at the bedside, looking comfortable. No nausea, vomiting, or diarrhea. No hematuria or hematochezia. No swelling of the leg. No chest pain. No palpitations. No headache or dizziness. PHYSICAL EXAMINATION: VITAL SIGNS: Temperature 98.4, pulse 77, blood pressure 155/89, and respiratory rate 20. HEENT: Head normocephalic, atraumatic. Eyes, PERRLA. Extraocular muscles intact. Conjunctivae clear. Nose: Patent. Mucous membranes moist. NECK: Supple. No carotid bruits. No JVD or thyromegaly. CHEST: Bilaterally symmetrical. HEART: S1 and S2 positive. LUNGS: Clear to auscultation. ABDOMEN: Soft. Bowel sounds positive. No organomegaly. EXTREMITIES: No edema, no cyanosis. NEUROLOGIC: The patient is awake and alert. Moving all 4 extremities. No focal deficits. MEDICATIONS: Augmentin, Cogentin, Depakote, trazodone, Glucophage, insulin, and Lantus. LABORATORY DATA: White blood cells 4.1, hemoglobin 10.2, hematocrit 29.8, platelets 88, and glucose 173. ASSESSMENT AND PLAN: The patient is a 67-year-old lady with leukopenia, anemia, thrombocytopenia, hyperglycemia, iron deficiency, history of gram negative septicemia, urinary tract infection, uncontrolled diabetes mellitus. The patient needs rehab, history of schizophrenia, psychiatrist is on the case. Repeat labs. We will follow up. Teressa Prakash MD
[2017-09-04] MEDS: Divalproex 250 mg DR Tab PO SCH ×2 (09:22→17:37)
[2017-09-04] MEDS: Pantoprazole 40 mg EC Tab PO SCH (09:22)
--- NOTE | 2017-09-04 12:56 | PCM.SURG1 ---
Surgeon's Initial Post Op Note - Surgeon's Notes Surgeon: Kyaw Middleton MD Commercial Reporter: NONE Type of Anesthesia: Local Pre-Operative Diagnosis: Poor venous access Operative Findings: US showed a patent right basilic vein Post-Operative Diagnosis: POor venous access, IV abx required Operation Performed: Single lumen picc placed, 34 cm. Tip is in the SVC. Specimen/Specimens Removed: none Estimated Blood Loss: EBL {In ML}: 2 Blood Products Given: N/A Drains Used: No Drains Post-Op Condition: Fair Date of Surgery/Procedure: 09/04/17 Time of Surgery/Procedure: 12:50
--- NOTE | 2017-09-04 13:48 | CP.PCM.PN ---
Subjective - Date & Time of Evaluation Date of Evaluation: 09/04/17 Time of Evaluation: 13:48 - Subjective Subjective: CHIEF COMPLAINTS TODAY : afebrile, CLINICALLY IMPROVING S/P NEW PICC LINE FORREST. ROS. HEENT : N. Resp : No SOB wheezing, cough Cardio : No CP, PND orthopnea GI : No abd. 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 Musculoskel : chronic back pain. Ext. : Pedal pulses intact, no edema or calf pain Derm : N Psych : N. PE. Pt. is awake , anxious ,in no distress. V.S As noted in the chart Head ,ear nose,throat and eyes : Normal. Neck : Supple with normal carotids. Lungs: Clear air entry. Heart : S1 & S2 normal . . No murmur. S4 + Abd : Soft non tender with normal bowel sounds. Neuro : Moves all ext. with no localized deficit. Ext : No edema with intact pulses. Neg. calf tenderness Derm : No rashes or decubitus ulcer. Radiology/Labs . 2D ECHO -VE VEGS N VALVES EF 70% REPEAT BLOOD CULTURES _VE 48HRS URINE CULTURE +VE YEAST BLOOD CULTURE -+ve ESBL+VE E. COLI S-MERREM/GENTA URINE CULTURE-+VE E.COLI S -MEROPENEM/AMIKACIN/ & BHS-GRP B Asssessment : GRAM-NEGATIVE SEPTICEMIA UROSEPSIS NEPHROLITHIASIS LT. KIDNEY DIABETES MELLITUS. LOW BACK PAIN CHRONIC. ANXIETY/SCHIZOPHRENIA. Plan : CASE DISCUSSED W CYBER INTEL PLANNER MS SEGOVIA. CONTINUE IV ABX IN [facility] DISCUSSED X 7DAYS MORE ON IV MERREM 1 GM IVPB EVERY 8 HOURLY.08/27/17. ON IV AMPICILLIN 1 G iv PIGGYBACK EVERY 8 HOURLY. 08/27/17 ADD PO DIFLUCAN 200MG PO OD X 5DAYS 08/31/17. Objective - Vital Signs/Intake and Output Vital Signs (last 24 hours): Temp Pulse Resp BP Pulse Ox 98.2 F 72 20 150/80 96 09/04/17 00:00 09/04/17 00:00 09/04/17 00:00 09/04/17 00:00 09/04/17 00:00 Intake and Output: 09/04/17 09/04/17 06:59 18:59 Intake Total 500 Balance 500 - Medications Medications: Current Medications Acetaminophen (Tylenol 325mg Tab) 650 mg PO Q4H PRN PRN Reason: pain fever Last Admin: 09/03/17 02:19 Dose: 650 mg Benztropine Mesylate (Cogentin) 1 mg PO [facility] Last Admin: 09/03/17 21:41 Dose: 1 mg Divalproex Sodium (Depakote Dr) 250 mg PO BID [facility] Last Admin: 09/04/17 09:22 Dose: 250 mg Gabapentin (Neurontin) 100 mg PO TID [facility] Last Admin: 09/04/17 09:19 Dose: Not Given Guaifenesin (Robitussin) 100 mg PO Q4H PRN PRN Reason: Cough Last Admin: 09/01/17 04:25 Dose: 100 mg Hydroxyzine HCl (Atarax) 25 mg PO Q6 PRN PRN Reason: Anxiety Meropenem 1 gm/ Sodium (Chloride) 100 mls @ 100 mls/hr IVPB Q8 [facility] PRN Reason: Protocol Last Admin: 09/04/17 06:30 Dose: 100 mls/hr Ampicillin 1 gm/ Sodium (Chloride) 100 mls @ 100 mls/hr IV Q8 [facility] PRN Reason: Protocol Last Admin: 09/04/17 05:30 Dose: 100 mls/hr Insulin Aspart (Novolog) 0 unit SC [facility] PRN Reason: Protocol Last Admin: 09/04/17 07:53 Dose: 2 unit Insulin Glargine (Lantus) 15 unit SC [facility] Last Admin: 09/03/17 21:44 Dose: 15 units Metformin HCl (Glucophage) 500 mg PO BID [facility] Last Admin: 09/04/17 09:22 Dose: 500 mg Pantoprazole Sodium (Protonix Ec Tab) 40 mg PO DAILY [facility] Last Admin: 09/04/17 09:22 Dose: 40 mg Risperidone (Risperdal Tab) 1 mg PO [facility] Last Admin: 09/03/17 21:42 Dose: 1 mg Tramadol HCl (Ultram) 50 mg PO TID PRN PRN Reason: Pain, moderate (4-7) Last Admin: 09/02/17 14:33 Dose: 50 mg Trazodone HCl (Desyrel) 50 mg PO [facility] Last Admin: 09/03/17 21:42 Dose: 50 mg - Labs Labs: 08/29/17 07:22 08/29/17 07:22 Assessment and Plan (1) Gram-neg septicemia Status: Acute (2) UTI (urinary tract infection) Status: Acute (3) Diabetes mellitus Status: Acute (4) Low back pain Status: Acute (5) Anxiety Status: Acute (6) Schizophrenia Status: Acute
[2017-09-04] MEDS: AMPicillin 1 GM in Sodium Chloride 0.9% 100 ML IVPB SCH (13:56)
[2017-09-04 16:37] VITALS: RESP 20
[2017-09-04] MEDS: (Lantus) Insulin Glargine, Recombinant SC SCH (21:36)
[2017-09-05] MEDS: AMPicillin 1 GM in Sodium Chloride 0.9% 100 ML IV SCH (05:37)
[2017-09-05] MEDS: Meropenem 1 GM in Sodium Chloride 0.9% 100 ML IVPB SCH ×3 (06:05→22:21)
--- NOTE | 2017-09-05 06:45 | PN ---
DATE: ____ SUBJECTIVE: The patient is a 67-year-old female. Looking comfortable except anxiety. No fever or chills. No nausea, vomiting or diarrhea. No headache or dizziness. No chest pain or palpitations. PHYSICAL EXAMINATION: VITAL SIGNS: Temperature 98.2, pulse 72, respiratory rate 20, blood pressure 150/50, and pulse oximetry 96%. HEENT: Head is normocephalic and atraumatic. Eyes: PERRLA. Extraocular muscles intact. Conjunctivae clear. Nose patent. Mucous membranes moist. NECK: Supple. No carotid bruits. No JVD or thyromegaly. CHEST: Bilaterally symmetrical. HEART: S1 and S2 positive. LUNGS: Clear to auscultation. ABDOMEN: Soft. Positive bowel sounds. No organomegaly. EXTREMITIES: No edema. No cyanosis. NEUROLOGIC: The patient is awake, alert. Moving all 4 extremities. No focal deficits. MEDICATIONS: Tylenol, Cogentin, Depakote, Neurontin, Robitussin, NovoLog, Lantus, Protonix, Risperdal, and tramadol. LABORATORY DATA: Labs reviewed by me. ASSESSMENT AND PLAN: The patient is a 67-year-old lady with sepsis; urinary tract infection; schizophrenia, bipolar; complaining about chronic back pain; diabetes mellitus, starting metformin and insulin; gastroesophageal reflux disease and dyspepsia, getting Protonix. Psychiatrist is on the case. Infectious Disease is on the case. Gastrointestinal and deep venous thrombosis prophylaxis. Repeat labs. Planning to send the patient to [facility]. We will follow up. Teressa Prakash MD MTDAlize
[2017-09-05 07:22] LABS: HEMOGLOBIN 10.4 g/dL (11.0-16.0); MEAN CELL VOLUME 84.4 fL (81.0-99.0); MEAN CORPUSCULAR HEMOGLOBIN 28.9 pg (27.0-31.0); MEAN CORPUSCULAR HGB CONC 34.2 g/dL (33.0-37.0); MEAN PLATELET VOLUME 9.2 fL (7.2-11.7); RBC 3.59 Mil/uL (3.80-5.20); RED CELL DISTRIBUTION WIDTH 13.9 % (11.5-14.5); WHITE BLOOD COUNT 4.7 K/uL (4.8-10.8)
[2017-09-05] MEDS: (Novolog) Insulin Aspart, Recombinant 100 u/ml 10 ml vial SC SCH ×4 (07:32→22:08)
[2017-09-05 07:51] LABS: BLOOD UREA NITROGEN 12 mg/dL (7-17); GFR AFRICAN-AMERICAN > 60; GFR NON-AFRICAN AMERICAN > 60
[2017-09-05] MEDS: Pantoprazole 40 mg EC Tab PO SCH (09:21)
[2017-09-05] MEDS: Divalproex 250 mg DR Tab PO SCH ×2 (09:22→17:29)
[2017-09-05] MEDS: Potassium Chloride 20 mEq/15 ml LIQ UD PO SCH ×2 (10:34→14:03)
--- NOTE | 2017-09-05 12:10 | CP.PCM.PN ---
Subjective - Date & Time of Evaluation Date of Evaluation: 09/05/17 Time of Evaluation: 12:10 - Subjective Subjective: HIEF COMPLAINTS TODAY : afebrile, NO NEW COMPLAINTS. CLINICALLY IMPROVING S/P NEW PICC LINE FORREST. MICHELE. HEENT : N. Resp : No SOB wheezing, cough Cardio : No CP, PND orthopnea GI : No abd. 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 Musculoskel : chronic back pain. Ext. : Pedal pulses intact, no edema or calf pain Derm : N Psych : N. PE. Pt. is awake , anxious ,in no distress. V.S As noted in the chart Head ,ear nose,throat and eyes : Normal. Neck : Supple with normal carotids. Lungs: Clear air entry. Heart : S1 & S2 normal . . No murmur. S4 + Abd : Soft non tender with normal bowel sounds. Neuro : Moves all ext. with no localized deficit. Ext : No edema with intact pulses. Neg. calf tenderness Derm : No rashes or decubitus ulcer. Radiology/Labs . 2D ECHO -VE VEGS N VALVES EF 70% REPEAT BLOOD CULTURES _VE 48HRS URINE CULTURE +VE YEAST BLOOD CULTURE -+ve ESBL+VE E. COLI S-MERREM/GENTA URINE CULTURE-+VE E.COLI S -MEROPENEM/AMIKACIN/ & BHS-GRP B Asssessment : GRAM-NEGATIVE SEPTICEMIA UROSEPSIS NEPHROLITHIASIS LT. KIDNEY DIABETES MELLITUS. LOW BACK PAIN CHRONIC. ANXIETY/SCHIZOPHRENIA. 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 OK TO DC ON SAT ON PO AUGMENTIN 875MG PO BID X 5DAYS ON IV MERREM 1 GM IVPB EVERY 8 HOURLY.08/27/17.-TILL 09/08/17 ON IV AMPICILLIN 1 G iv PIGGYBACK EVERY 8 HOURLY. 08/27/17-TILL 09/08/17 ADD PO DIFLUCAN 200MG PO OD X 5DAYS 08/31/17.- DONE. CASE DISCUSSED WITH DR HASTINGS. Objective - Vital Signs/Intake and Output Vital Signs (last 24 hours): Temp Pulse Resp BP Pulse Ox 98.5 F 83 20 151/71 H 96 09/05/17 07:02 09/05/17 07:02 09/05/17 07:02 09/05/17 07:02 09/05/17 07:02 Intake and Output: 09/05/17 09/05/17 06:59 18:59 Intake Total 440 Balance 440 - Medications Medications: Current Medications Acetaminophen (Tylenol 325mg Tab) 650 mg PO Q4H PRN PRN Reason: pain fever Last Admin: 09/03/17 02:19 Dose: 650 mg Benztropine Mesylate (Cogentin) 1 mg PO [facility] Last Admin: 09/04/17 21:35 Dose: 1 mg Divalproex Sodium (Depakote Dr) 250 mg PO BID [facility] Last Admin: 09/05/17 09:22 Dose: 250 mg Gabapentin (Neurontin) 100 mg PO TID [facility] Last Admin: 09/05/17 09:22 Dose: Not Given Guaifenesin (Robitussin) 100 mg PO Q4H PRN PRN Reason: Cough Last Admin: 09/01/17 04:25 Dose: 100 mg Hydroxyzine HCl (Atarax) 25 mg PO Q6 PRN PRN Reason: Anxiety Last Admin: 09/04/17 17:40 Dose: 25 mg Meropenem 1 gm/ Sodium (Chloride) 100 mls @ 100 mls/hr IVPB Q8 [facility] PRN Reason: Protocol Last Admin: 09/05/17 06:05 Dose: 100 mls/hr Ampicillin 1 gm/ Sodium (Chloride) 100 mls @ 100 mls/hr IV Q8 [facility] PRN Reason: Protocol Last Admin: 09/05/17 05:37 Dose: 100 mls/hr Insulin Aspart (Novolog) 0 unit SC [facility] PRN Reason: Protocol Last Admin: 09/05/17 07:32 Dose: Not Given Insulin Glargine (Lantus) 15 unit SC [facility] Last Admin: 09/04/17 21:36 Dose: 15 units Metformin HCl (Glucophage) 500 mg PO BID [facility] Last Admin: 09/05/17 09:22 Dose: 500 mg Pantoprazole Sodium (Protonix Ec Tab) 40 mg PO DAILY [facility] Last Admin: 09/05/17 09:21 Dose: 40 mg Potassium Chloride (Potassium Chloride Oral Soln) 40 meq PO Q4H [facility] Stop: 09/05/17 13:46 Last Admin: 09/05/17 10:34 Dose: 40 meq Risperidone (Risperdal Tab) 1 mg PO [facility] Last Admin: 09/04/17 21:36 Dose: 1 mg Tramadol HCl (Ultram) 50 mg PO TID PRN PRN Reason: Pain, moderate (4-7) Last Admin: 09/02/17 14:33 Dose: 50 mg Trazodone HCl (Desyrel) 50 mg PO HS [facility] Last Admin: 09/04/17 21:35 Dose: 50 mg - Labs Labs: 09/05/17 07:15 09/05/17 07:15 Assessment and Plan (1) Gram-neg septicemia Status: Acute (2) UTI (urinary tract infection) Status: Acute (3) Diabetes mellitus Status: Acute (4) Low back pain Status: Acute (5) Anxiety Status: Acute (6) Schizophrenia Status: Acute
--- NOTE | 2017-09-05 13:21 | US ---
Date of procedure: 09/04/2016 Procedure: Ultrasound guidance for vascular access HISTORY: Infection requiring long-term IV antibiotics TECHNIQUE: Following informed consent and procedure time-out, the patient placed supine on the interventional table and the right arm prepped and draped in the usual sterile fashion. Ultrasound showed a patent and compressible basilic vein. After the skin was anesthetized with lidocaine, the basilic vein was accessed with micro micropuncture technique using ultrasound guidance. An image documenting ultrasound guidance for vascular access was permanently saved. IMPRESSION: Ultrasound guidance for vascular access for placement of PICC.
--- NOTE | 2017-09-05 13:23 | RAD ---
PROCEDURE: Date of procedure: 09/04/2017 Procedure: 1. Placement of a right arm PICC with ultrasound and fluoroscopic guidance, CPT 43887 2. PICC tip confirmation with spot radiograph and is in the superior vena cava Medications: 1 percent lidocaine Total Fluoro time: 12.5 seconds Radiation: 0.068 MGym2 EBL: 2 cc HISTORY: Infection requiring long-term IV antibiotics TECHNIQUE: Following informed consent and procedure time-out, the patient was placed supine on the interventional table and the right arm prepped and draped in the usual sterile fashion. Ultrasound showed a patent and compressible right basilic vein. After the skin was anesthetized with lidocaine, the basilic vein was accessed with micro micropuncture technique using ultrasound guidance. A guidewire was then advanced under fluoroscopic guidance into the superior vena cava. An image documenting ultrasound guidance for vascular access was permanently saved. The length of the single-lumen 4 Albanian PICC was trimmed to 34 centimeters and advanced through a peel-away sheath. The PICC was position with tip of PICC confirm a spot radiograph the superior vena cava. The PICC was secured to the patient's skin. The PICC was flushed. A biopatch and sterile dressing was applied. IMPRESSION: Placement of a single-lumen 4 Albanian PICC trimmed to 34 centimeters via right basilic vein. The tip of the PICC is confirmed with spot radiograph and is in the superior vena cava.
[2017-09-05] MEDS: AMPicillin 1 GM in Sodium Chloride 0.9% 100 ML IVPB SCH ×2 (14:01→21:25)
[2017-09-05] MEDS: (Lantus) Insulin Glargine, Recombinant SC SCH (21:32)
--- NOTE | 2017-09-06 03:25 | PN ---
DATE: 09/05/2017 SUBJECTIVE: The patient was seen and examined at the bedside on 09/05/2017, looking comfortable. No event happened overnight. No nausea or vomiting. No headache, no dizziness. No chest pain, no palpitation. PHYSICAL EXAMINATION: VITAL SIGNS: Temperature 98.5, pulse 83, respiratory rate 20, blood pressure 150/71, pulse oxymetry 96. HEENT: Head normocephalic, atraumatic. Eyes, PERRLA. Extraocular muscles intact. Conjunctivae clear. Nose patent. Mucous membranes moist. NECK: Supple. No carotid bruits. No JVD or thyromegaly. CHEST: Bilaterally symmetrical. HEART: S1, S2 positive. LUNGS: Clear to auscultation. ABDOMEN: Soft. Positive bowel sounds. No organomegaly. EXTREMITIES: No edema. No cyanosis. NEUROLOGIC: The patient is awake, and alert. Moving all 4 extremities. No focal deficits. MEDICATIONS: Tylenol, Cogentin, Depakote, Neurontin, Robitussin, Atarax, meropenem, ampicillin, insulin, potassium, Risperdal, tramadol, trazodone. LABORATORY DATA: White blood cells 4.7, hemoglobin 10.4, hematocrit 30.3, and platelets 204. Sodium noted BUN 12, creatinine 0.6, and glucose 108. ASSESSMENT AND PLAN: Ms. Donna Garcia is a 67 years old lady with leukopenia, anemia, hypokalemia, hyperglycemia, has gram-negative septicemia, urinary tract infection, diabetes mellitus, low back pain, anxiety, schizophrenia. Continue antibiotics as per Infectious Disease, Dr. Maria Guadalupe Vásquez. Actually, the plan was to send the patient last week to rehab to complete the antibiotic course, but according to social work job titles, We will discuss with Infectious Disease, we can change into p.o. then will discharge the patient to home. Repeat labs. We will follow up. Teressa Prakash MD MTDAlize
[2017-09-06] MEDS: Meropenem 1 GM in Sodium Chloride 0.9% 100 ML IVPB SCH ×3 (05:30→21:48)
[2017-09-06] MEDS: AMPicillin 1 GM in Sodium Chloride 0.9% 100 ML IVPB SCH ×3 (06:30→21:23)
[2017-09-06] MEDS: (Novolog) Insulin Aspart, Recombinant 100 u/ml 10 ml vial SC SCH ×4 (07:55→21:29)
[2017-09-06] MEDS: Pantoprazole 40 mg EC Tab PO SCH (09:44)
[2017-09-06] MEDS: Divalproex 250 mg DR Tab PO SCH ×2 (09:44→17:23)
[2017-09-06] MEDS: (Lantus) Insulin Glargine, Recombinant SC SCH (21:25)
[2017-09-06] MEDS: guaiFENesin 100 mg/5 ml Syrup UD PO PRN (22:22)
--- NOTE | 2017-09-06 22:54 | CP.PCM.PN ---
Subjective - Date & Time of Evaluation Date of Evaluation: 09/06/17 Time of Evaluation: 22:54 - Subjective Subjective: CHIEF COMPLAINTS TODAY : afebrile, NO NEW COMPLAINTS. OOB ON CHAIR S/P NEW PICC LINE FORREST. ROS. HEENT : N. Resp : No SOB wheezing, cough Cardio : No CP, PND orthopnea GI : No abd. 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 Musculoskel : chronic back pain. Ext. : Pedal pulses intact, no edema or calf pain Derm : N Psych : N. PE. Pt. is awake , anxious ,in no distress. V.S As noted in the chart Head ,ear nose,throat and eyes : Normal. Neck : Supple with normal carotids. Lungs: Clear air entry. Heart : S1 & S2 normal . . No murmur. S4 + Abd : Soft non tender with normal bowel sounds. Neuro : Moves all ext. with no localized deficit. Ext : No edema with intact pulses. Neg. calf tenderness Derm : No rashes or decubitus ulcer. Radiology/Labs . 2D ECHO -VE VEGS N VALVES EF 70% REPEAT BLOOD CULTURES _VE 48HRS URINE CULTURE +VE YEAST BLOOD CULTURE -+ve ESBL+VE E. COLI S-MERREM/GENTA URINE CULTURE-+VE E.COLI S -MEROPENEM/AMIKACIN/ & BHS-GRP B Asssessment : GRAM-NEGATIVE SEPTICEMIA UROSEPSIS NEPHROLITHIASIS LT. KIDNEY DIABETES MELLITUS. LOW BACK PAIN CHRONIC. ANXIETY/SCHIZOPHRENIA. 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 OK TO DC ON SAT ON PO AUGMENTIN 875MG PO BID X 5DAYS ON IV MERREM 1 GM IVPB EVERY 8 HOURLY.08/27/17.-TILL 09/08/17 ON IV AMPICILLIN 1 G iv PIGGYBACK EVERY 8 HOURLY. 08/27/17-TILL 09/08/17 DC PO DIFLUCAN CASE DISCUSSED WITH DR HASTINGS AND AGREES. Objective - Vital Signs/Intake and Output Vital Signs (last 24 hours): Temp Pulse Resp BP Pulse Ox 98.1 F 86 20 142/86 97 09/06/17 16:56 09/06/17 16:56 09/06/17 16:56 09/06/17 16:56 09/06/17 16:56 Intake and Output: 09/06/17 09/07/17 18:59 06:59 Intake Total 200 Balance 200 - Medications Medications: Current Medications Acetaminophen (Tylenol 325mg Tab) 650 mg PO Q4H PRN PRN Reason: pain fever Last Admin: 09/03/17 02:19 Dose: 650 mg Benztropine Mesylate (Cogentin) 1 mg PO HS [facility] Last Admin: 09/06/17 21:27 Dose: 1 mg Divalproex Sodium (Depakote Dr) 250 mg PO BID [facility] Last Admin: 09/06/17 17:23 Dose: 250 mg Fluconazole (Diflucan) 100 mg PO DAILY [facility] PRN Reason: Protocol Stop: 09/10/17 14:46 Last Admin: 09/06/17 09:44 Dose: 100 mg Gabapentin (Neurontin) 100 mg PO TID [facility] Last Admin: 09/06/17 17:25 Dose: Not Given Guaifenesin (Robitussin) 100 mg PO Q4H PRN PRN Reason: Cough Last Admin: 09/06/17 22:22 Dose: 100 mg Hydroxyzine HCl (Atarax) 25 mg PO Q6 PRN PRN Reason: Anxiety Last Admin: 09/04/17 17:40 Dose: 25 mg Meropenem 1 gm/ Sodium (Chloride) 100 mls @ 100 mls/hr IVPB Q8 [facility] PRN Reason: Protocol Last Admin: 09/06/17 21:48 Dose: 100 mls/hr Ampicillin 1 gm/ Sodium (Chloride) 100 mls @ 200 mls/hr IVPB Q8 [facility] PRN Reason: Protocol Last Admin: 09/06/17 21:23 Dose: 200 mls/hr Insulin Aspart (Novolog) 0 unit SC [facility] PRN Reason: Protocol Last Admin: 09/06/17 21:29 Dose: Not Given Insulin Glargine (Lantus) 15 unit SC [facility] Last Admin: 09/06/17 21:25 Dose: 15 units Metformin HCl (Glucophage) 500 mg PO BID [facility] Last Admin: 09/06/17 17:23 Dose: 500 mg Pantoprazole Sodium (Protonix Ec Tab) 40 mg PO DAILY [facility] Last Admin: 09/06/17 09:44 Dose: 40 mg Risperidone (Risperdal Tab) 1 mg PO [facility] Last Admin: 09/06/17 21:27 Dose: 1 mg Tramadol HCl (Ultram) 50 mg PO TID PRN PRN Reason: Pain, moderate (4-7) Last Admin: 09/02/17 14:33 Dose: 50 mg Trazodone HCl (Desyrel) 50 mg PO HS [facility] Last Admin: 09/06/17 21:24 Dose: 50 mg - Labs Labs: 09/05/17 07:15 09/05/17 07:15 Assessment and Plan (1) Gram-neg septicemia Status: Acute (2) UTI (urinary tract infection) Status: Acute (3) Diabetes mellitus Status: Acute (4) Low back pain Status: Acute (5) Anxiety Status: Acute (6) Schizophrenia Status: Acute
--- NOTE | 2017-09-06 23:00 | PN ---
DATE: 09/06/17 SUBJECTIVE: The patient is a 67 years old female. The patient was seen and examined on the bedside. Looking comfortable. No nausea, vomiting or diarrhea. No hematuria or hematochezia. No swelling of the legs. No chest pain. No palpitation. No headache or dizziness. Sitting on the recliner and feeling better. PHYSICAL EXAMINATION: VITAL SIGNS: Temperature 98.1, pulse 86, blood pressure 140/82, respiratory rate 20. HEENT: Head is normocephalic and atraumatic. Eyes: PERRLA. Extraocular muscles intact. Conjunctivae clear. Nose patent. Mucous membranes moist. NECK: Supple. No carotid bruits. No JVD or thyromegaly. CHEST: Bilaterally symmetrical. HEART: S1 and S2 positive. LUNGS: Clear to auscultation. ABDOMEN: Soft. Positive bowel sounds. No organomegaly. EXTREMITIES: No edema. No cyanosis. NEUROLOGIC: The patient is awake, alert. Moving all 4 extremities. No focal deficits. MEDICATIONS: Ampicillin, Atarax, Cogentin, Depakote, trazodone, Diflucan, Glucophage, Lantus, Neurontin, NovoLog, Protonix, Risperdal, Tylenol, and tramadol. LABORATORY DATA: White blood cells 4.7, hemoglobin 10.4, hematocrit 30.3, platelets 204. Glucose 227, 204, 188. ASSESSMENT AND PLAN: Ms. Donna Garcia is 67 years old lady with multiple medical problems, has leukopenia, anemia, hypovolemia, hyperglycemia, gram-negative septicemia, urinary tract infection, diabetes mellitus, low back pain, anxiety, schizophrenia. As per Infectious Disease, Dr. Maria Guadalupe Vásquez, we have to keep IV antibiotics for at least, up to Sunday. The patient cannot got to [facility] because of insurance problem. We will consider further treatment if patient done with Dr. Maria Guadalupe Vásquez, social services manager, then patient's nurse. We will follow up. Teressa Prakash MD ROM
[2017-09-07] MEDS: AMPicillin 1 GM in Sodium Chloride 0.9% 100 ML IVPB SCH ×3 (05:15→21:30)
[2017-09-07] MEDS: Meropenem 1 GM in Sodium Chloride 0.9% 100 ML IVPB SCH ×3 (06:15→22:21)
[2017-09-07] MEDS: (Novolog) Insulin Aspart, Recombinant 100 u/ml 10 ml vial SC SCH ×4 (08:33→21:37)
[2017-09-07] MEDS: Divalproex 250 mg DR Tab PO SCH ×2 (10:01→17:22)
[2017-09-07] MEDS: Pantoprazole 40 mg EC Tab PO SCH (10:01)
[2017-09-07] MEDS: (Lantus) Insulin Glargine, Recombinant SC SCH (21:35)
--- NOTE | 2017-09-08 00:16 | PN ---
DATE: 09/07/2017 SUBJECTIVE: The patient was seen and examined on the bedside. Looking comfortable. No nausea, vomiting or diarrhea. No hematuria or hematochezia. No swelling of the legs. No chest pain. No palpitation. No headache, no dizziness. No fever, no chills. No shortness of breath. PHYSICAL EXAMINATION: VITAL SIGNS: Temperature 98.1, pulse 86, respiratory rate 20, blood pressure 120/80 , pulse oximetry 97. HEENT: Head normocephalic and atraumatic. Eyes, PERRLA. Extraocular muscles intact. Conjunctivae clear. Nose patent. Mucous membranes moist. NECK: Supple. No carotid bruits. No JVD or thyromegaly. CHEST: Bilaterally symmetrical. HEART: S1 and S2 positive. LUNGS: Clear to auscultation. ABDOMEN: Soft. Positive bowel sounds. No organomegaly. EXTREMITIES: No edema. No cyanosis. NEUROLOGIC: The patient is awake, alert. Moving all 4 extremities. No focal deficits. MEDICATIONS: Tylenol, Cogentin, Depakote, Diflucan, Neurontin, Robitussin, Atarax, meropenem, ampicillin, insulin, metformin, Protonix. LABORATORY DATA: White blood cells 4.5, hemoglobin 10.4, hematocrit 30.2 and platelets 204. Sodium 146, potassium 3.3, BUN 12, creatinine noted glucose 108. ASSESSMENT AND PLAN: Mrs. Donna Garcia is 67 years old lady with leukopenia, anemia, electrolyte imbalance, hyperglycemia, gram negative septicemia, urinary tract infection, diabetes mellitus, low back pain, anxiety, schizophrenia. Continue antibiotics as per Dr. Maria Guadalupe Vásquez. Tomorrow will be the last day for antibiotics and will make discharge planning. GI/DVT prophylaxis. Repeat labs. We will follow up. Teressa Prakash MD MTDD
[2017-09-08] MEDS: AMPicillin 1 GM in Sodium Chloride 0.9% 100 ML IVPB SCH ×2 (05:30→14:26)
[2017-09-08] MEDS: Meropenem 1 GM in Sodium Chloride 0.9% 100 ML IVPB SCH ×2 (06:30→14:27)
[2017-09-08] MEDS: (Novolog) Insulin Aspart, Recombinant 100 u/ml 10 ml vial SC SCH ×2 (08:42→12:14)
[2017-09-08] MEDS: Divalproex 250 mg DR Tab PO SCH (09:31)
[2017-09-08] MEDS: Pantoprazole 40 mg EC Tab PO SCH (09:32)
[2017-09-08 10:09] VITALS: BP 134/78; PULSE 78; TEMP 97.8; O2SAT 94
--- NOTE | 2017-09-08 15:45 | CP.PCM.PN ---
Subjective - Date & Time of Evaluation Date of Evaluation: 09/08/17 Time of Evaluation: 15:41 - Subjective Subjective: PT CLEARED FOR D/C TO [facility] TODAY PER DR. HASTINGS. PT GIVEN WALKER AND 2 PAIRS OF SHOES BY SOC WORKER FOR D/C. PT OBSERVED AMBULATING WELL WITH WALKER AND NO OTHER ASSISTANCE. RX FOR ALL MEDS GIVEN TO PT; OFFERED MEDS TO BED, HOWEVER, PT HAS A COPAY OF $100. PT REQUESTING TO TAKE RX WITH HER AND SHE WILL GET THEM FILLED ELSEWHERE. TO D/C TO [facility] OF HER CHOICE. SW TO ARRANGE TRANSPORTATION. NO FURTHER ORDERS. Objective - Vital Signs/Intake and Output Vital Signs (last 24 hours): Temp Pulse Resp BP Pulse Ox 97.8 F 78 20 134/78 94 L 09/08/17 08:00 09/08/17 08:00 09/08/17 08:00 09/08/17 08:00 09/08/17 08:00 Intake and Output: 09/08/17 09/08/17 06:59 18:59 Intake Total 500 360 Balance 500 360 - Medications Medications: Current Medications Benztropine Mesylate (Cogentin) 1 mg PO HS [facility] Last Admin: 09/07/17 21:33 Dose: 1 mg Divalproex Sodium (Depakote Dr) 250 mg PO BID [facility] Last Admin: 09/08/17 09:31 Dose: 250 mg Gabapentin (Neurontin) 100 mg PO TID [facility] Last Admin: 09/08/17 14:27 Dose: Not Given Guaifenesin (Robitussin) 100 mg PO Q4H PRN PRN Reason: Cough Last Admin: 09/06/17 22:22 Dose: 100 mg Hydroxyzine HCl (Atarax) 25 mg PO Q6 PRN PRN Reason: Anxiety Last Admin: 09/04/17 17:40 Dose: 25 mg Meropenem 1 gm/ Sodium (Chloride) 100 mls @ 100 mls/hr IVPB Q8 [facility] PRN Reason: Protocol Last Admin: 09/08/17 14:27 Dose: Not Given Ampicillin 1 gm/ Sodium (Chloride) 100 mls @ 200 mls/hr IVPB Q8 [facility] PRN Reason: Protocol Last Admin: 09/08/17 14:26 Dose: Not Given Insulin Aspart (Novolog) 0 unit SC ACHS [facility] PRN Reason: Protocol Last Admin: 09/08/17 12:14 Dose: 3 unit Insulin Glargine (Lantus) 15 unit SC [facility] Last Admin: 09/07/17 21:35 Dose: 15 units Metformin HCl (Glucophage) 500 mg PO BID [facility] Last Admin: 09/08/17 09:32 Dose: 500 mg Risperidone (Risperdal Tab) 1 mg PO [facility] Last Admin: 09/07/17 21:33 Dose: 1 mg Tramadol HCl (Ultram) 50 mg PO TID PRN PRN Reason: Pain, moderate (4-7) Last Admin: 09/08/17 00:20 Dose: 50 mg Trazodone HCl (Desyrel) 50 mg PO [facility] Last Admin: 09/07/17 21:34 Dose: 50 mg - Labs Labs: 09/05/17 07:15 09/05/17 07:15
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
== END 2017-09-08 16:25 | disposition home or self-care (01) | DRG 872 ==
LOC: C.ER 12:27 → C.9E 18:47 → C.3T 19:28
PROVIDERS: ADMIT Internal Medicine; ATTEND Internal Medicine
PROC: 02HV33Z Insertion of Infusion Device into Superior Vena Cava, Percutaneous Approach (ICD-10-PCS; principal; 2017-09-05)
PROC: B548ZZA Ultrasonography of Superior Vena Cava, Guidance (ICD-10-PCS; 2017-09-05)
DX: A41.50 Gram-negative sepsis, unspecified (principal); N39.0 Urinary tract infection, site not specified; D61.818 Other pancytopenia; F31.64 Bipolar disorder, current episode mixed, severe, with psychotic features; D50.9 Iron deficiency anemia, unspecified; E11.65 Type 2 diabetes mellitus with hyperglycemia; E78.1 Pure hyperglyceridemia; E86.1 Hypovolemia; E87.6 Hypokalemia; F41.9 Anxiety disorder, unspecified; G89.29 Other chronic pain; I10 Essential (primary) hypertension; K21.9 Gastro-esophageal reflux disease without esophagitis; N20.0 Calculus of kidney; F17.210 Nicotine dependence, cigarettes, uncomplicated; Z87.440 Personal history of urinary (tract) infections; Z87.442 Personal history of urinary calculi; Z91.19 Patient's noncompliance with other medical treatment and regimen; Z59.0 Homelessness; Z79.84 Long term (current) use of oral hypoglycemic drugs

== ENCOUNTER 2017-09-08 19:13 | Observation (INO) | payer MEDICARE, MEDICAID ==
[2017-09-08 19:13] VITALS: BMI 29.9
--- NOTE | 2017-09-08 19:55 | C.PDOC ---
History Of Present Illness 67 year old female presents to the emergency department after being discharged earlier today status-post UTI treatment. As per her previous disposition, she was erroneously discharged to a skilled nursing where no accommodations had been made for her, so she called an ambulance and requested to be brought back to the ED as she is seeking a place to stay. Patient has a past medical history of diabetes, hypertension, bipolar disorder, and schizophrenia. She denies any recent drug or alcohol use. Time Seen by Provider: 09/08/17 19:45 Chief Complaint (Nursing): Medical Clearance History Per: Patient History/Exam Limitations: no limitations Onset/Duration Of Symptoms: Hrs Reports Recently: Seen In ED (earlier today), Treated By A Physician Past Medical History Reviewed: Historical Data, Nursing Documentation, Vital Signs Vital Signs: Last Vital Signs Temp 98.6 F 09/08/17 19:25 Pulse 84 09/08/17 19:25 Resp 20 09/08/17 19:25 BP 140/85 09/08/17 19:25 Pulse Ox 96 09/08/17 20:19 - Medical History PMH: Anxiety, Arthritis (BACL), Bipolar Disorder, Cardia Arrhythmia (TACHYCARDIA ), Depression, Diabetes, HTN, Schizophrenia Denies: Hepatitis, HIV, Seizures, Sexually Transmitted Disease Surgical History: No Surg Hx Family History: States: No Known Family Hx - Social History Hx Tobacco Use: Yes Hx Alcohol Use: No Hx Substance Use: No - Immunization History Hx Influenza Vaccination: Yes Hx Pneumococcal Vaccination: Yes Review Of Systems Review Of Systems: ROS cannot be obtained secondary to pt's inabilty to answer questions. Physical Exam - Physical Exam Appears: Non-toxic, No Acute Distress, Other (confrontational, anxious) Skin: Warm, Dry Head: Atraumatic, Normacephalic Eye(s): bilateral: Normal Inspection Ear(s): Bilateral: Normal Nose: Normal Oral Mucosa: Moist Throat: Normal, No Erythema, No Exudate, No Drooling Neck: Supple Cardiovascular: Rhythm Regular, No Murmur Respiratory: Normal Breath Sounds (clear to auscultation bilaterally), No Rales , No Rhonchi, No Wheezing Gastrointestinal/Abdominal: Normal Exam, Soft, No Tenderness, No Guarding, No Rebound Extremity: Normal ROM Extremity: Bilateral: Atraumatic, Normal ROM Pulses: Left Dorsalis Pedis: Normal, Right Dorsalis Pedis: Normal Neurological/Psych: Oriented x3, Normal Speech, Normal Cognition, Normal Cranial Nerves, Normal Motor, Normal Sensation, Normal Reflexes ED Course And Treatment O2 Sat by Pulse Oximetry: 96 (RA) Pulse Ox Interpretation: Normal - Physician Consult Information Time Consulting Physician Contacted: 20:15 Physician Contacted: Coy West Outcome Of Conversation: After speaking to Dr. West, the patient will be kept for further observation. Medical Decision Making Medical Decision Making: Plan: Contact Dr. West because the patient's primary, Dr. Prakash, is not physicians and surgeons. Disposition - Disposition Disposition: HOSPITALIZED Disposition Time: 20:17 Condition: GOOD - Clinical Impression Clinical Impression: Schizophrenia, Homelessness - Scribe Statement The provider has reviewed the documentation as recorded by the Scribe (Armen Carr) All medical record entries made by the Scribe were at my direction and personally dictated by me. I have reviewed the chart and agree that the record accurately reflects my personal performance of the history, physical exam, medical decision making, and the department course for this patient. I have also personally directed, reviewed, and agree with the discharge instructions and disposition.
[2017-09-08] MEDS ORDERED: (Lantus) Insulin Glargine, Recombinant SC ONE (22:50)
[2017-09-08] MEDS ORDERED: (Novolin R) Insulin Human Regular 100 units/ml vial ONE (22:52)
[2017-09-08] MEDS: (Lantus) Insulin Glargine, Recombinant SC SCH (23:02)
[2017-09-08] MEDS: (Novolin R) Insulin Human Regular 100 units/ml vial SC SCH (23:03)
[2017-09-09] MEDS ORDERED: Tramadol 25 mg PO ONE (04:25)
[2017-09-09] MEDS: (Novolin R) Insulin Human Regular 100 units/ml vial SC SCH ×4 (08:30→21:21)
[2017-09-09] MEDS: Potassium Chloride 20 mEq ER Tab PO SCH (09:39)
[2017-09-09] MEDS: Divalproex 250 mg DR Tab PO SCH ×2 (09:40→17:32)
[2017-09-09] MEDS: Enoxaparin 30 mg Syringe SC SCH (09:40)
[2017-09-09] MEDS: Pantoprazole 40 mg EC Tab PO SCH (09:43)
[2017-09-09] MEDS: (Lantus) Insulin Glargine, Recombinant SC SCH (21:59)
[2017-09-09] MEDS ORDERED: (Lantus) Insulin Glargine, Recombinant SC SCH (22:30)
--- NOTE | 2017-09-10 05:31 | CP.PCM.HP ---
History of Present Illness - History of Present Illness History of Present Illness: 67 year old female presents to the emergency department after being discharged earlier today status-post UTI treatment. As per her previous disposition, she was erroneously [facility] to a [facility] where no accommodations had been made for her, so she called an ambulance and requested to be brought back to the ED as she is seeking a place to stay. Patient has a past medical history of diabetes, hypertension, bipolar disorder, and schizophrenia. She denies any recent drug or alcohol use. Past Patient History - Past Medical History & Family History Past Medical History?: Yes - Past Social History Smoking Status: Current Some Days Smoker - CARDIAC Hx Cardia Arrhythmia: Yes (TACHYCARDIA) Hx Hypertension: Yes - PULMONARY Hx Tuberculosis: No - NEUROLOGICAL Hx Seizures: No - ENDOCRINE/METABOLIC Hx Diabetes Mellitus Type 2: Yes - HEMATOLOGICAL/ONCOLOGICAL Hx Human Immunodeficiency Virus (HIV): No - MUSCULOSKELETAL/RHEUMATOLOGICAL Hx Falls: No - GENITOURINARY/GYNECOLOGICAL Hx Sexually Transmitted Disorders: No - PSYCHIATRIC Hx Anxiety: Yes Hx Bipolar Disorder: Yes Hx Depression: Yes Hx Schizophrenia: Yes Hx Substance Use: No - SURGICAL HISTORY Hx Surgeries: Yes Other/Comment: Abdominal surgery - ANESTHESIA Hx Anesthesia: No Meds Allergies/Adverse Reactions: Allergies Allergy/AdvReac Type Severity Reaction Status Date / Time No Known Allergies Allergy Verified 08/25/17 13:25 Results - Vital Signs Recent Vital Signs: Last Vital Signs Temp 98.1 F 09/09/17 23:09 Pulse 88 09/09/17 23:09 Resp 18 09/09/17 23:09 BP 142/82 09/09/17 23:09 Pulse Ox 96 09/09/17 23:09 - Labs Labs: Laboratory Results - last 24 hr 09/09/17 09/09/17 09/09/17 06:12 11:24 16:23 POC Glucose (mg/dL) 183 H 250 H 283 H 09/09/17 20:57 POC Glucose (mg/dL) 165 H
[2017-09-10 08:20] VITALS: BP 147/94; PULSE 79; RESP 20; TEMP 97.7; O2SAT 95
[2017-09-10] MEDS: (Novolin R) Insulin Human Regular 100 units/ml vial SC SCH (08:30)
[2017-09-10] MEDS: Potassium Chloride 20 mEq ER Tab PO SCH (09:38)
[2017-09-10] MEDS: Enoxaparin 30 mg Syringe SC SCH (09:38)
[2017-09-10] MEDS: Pantoprazole 40 mg EC Tab PO SCH (09:38)
[2017-09-10] MEDS: Divalproex 250 mg DR Tab PO SCH (09:40)
--- NOTE | 2017-09-10 10:12 | CP.PCM.PN ---
Subjective - Date & Time of Evaluation Date of Evaluation: 09/10/17 Time of Evaluation: 10:12 - Subjective Subjective: PATIENT WAS ADMITTING BACK TO THE HOSPITAL STATING THAT THEY DID NOT A ROOM FOR HER AT THE [facility] AAOX[facility]/ DENIES CHEST PAIN / SOB / WALKER AT THE BEDSIDE NO SIGN OF DISTRESS NOTED Objective - Vital Signs/Intake and Output Vital Signs (last 24 hours): Temp Pulse Resp BP Pulse Ox 97.7 F 79 20 147/94 H 95 09/10/17 08:20 09/10/17 08:20 09/10/17 08:20 09/10/17 08:20 09/10/17 08:20 Intake and Output: 09/10/17 09/10/17 06:59 18:59 Intake Total 300 Balance 300 - Medications Medications: Current Medications Benztropine Mesylate (Cogentin) 1 mg PO [facility] Last Admin: 09/09/17 21:57 Dose: 1 mg Divalproex Sodium (Depakote Dr) 250 mg PO BID [facility] Last Admin: 09/10/17 09:40 Dose: 250 mg Enoxaparin Sodium (Lovenox) 30 mg SC DAILY [facility] Last Admin: 09/10/17 09:38 Dose: 30 mg Gabapentin (Neurontin) 100 mg PO TID [facility] Last Admin: 09/10/17 09:38 Dose: Not Given Insulin Glargine (Lantus) 20 unit SC [facility] Insulin Human Regular (Novolin R) 0 unit SC [facility] PRN Reason: Protocol Last Admin: 09/10/17 08:30 Dose: 1 unit [facility] Last Admin: 09/10/17 08:41 Dose: 500 mg Pantoprazole Sodium (Protonix Ec Tab) 40 mg PO DAILY [facility] Last Admin: 09/10/17 09:38 Dose: 40 mg Potassium Chloride (K-Dur 20 Meq Er Tab) 20 meq PO DAILY [facility] Last Admin: 09/10/17 09:38 Dose: 20 meq Risperidone (Risperdal Tab) 1 mg PO [facility] Last Admin: 09/09/17 21:57 Dose: 1 mg Trazodone HCl (Desyrel) 50 mg PO [facility] Last Admin: 09/09/17 21:57 Dose: 50 mg Assessment and Plan - Assessment and Plan (Free Text) Assessment: PATIENT SEEN AND EXAMINED AT THE BEDSIDE LUNG SOUND CLEAR NANDA ABD SOFT NON DISTENDED PLAN TO DC HOME WITH FAMILY DISCUSS WITH DR GAMBOA WHO CLEAR FOR DC FOLLOW UP WITH DR. GAMBOA OR YOUR PRIMARY DOCTOR IN THE OFFICE IN 1 WEEK--- CALL THE OFFICE TO MAKE YOUR APPOINTMENT. -CONTINUE HOME MEDICATIONS USUAL. -USE WALKER FOR WALKING SAFETY---PLEASE DO NOT LOSE YOUR WALKER!! -FOR QUESTIONS OR CONCERNS, CONTACT DR. GAMBOA'S OFFICE. DISCUSS WITH PATIENT WHO AGREE AND VERBALIZED UNDERSTANDING
--- NOTE | 2017-09-11 09:37 | CP.PCM.DIS ---
Provider - Provider Date of Admission: 09/08/17 20:19 Attending physician: Coy West MD Time Spent in preparation of Discharge (in minutes): 45 Hospital Course - Lab Results Lab Results: Most Recent Lab Values POC Glucose (mg/dL) 232 mg/dL (65-110) H 09/10/17 11:06 - Hospital Course Hospital Course: PATIENT SEEN AND EXAMINED AT THE BEDSIDE LUNG SOUND CLEAR NANDA ABD SOFT NON DISTENDED PLAN TO DC HOME WITH FAMILY PT CLEAR FOR DC FOLLOW UP WITH YOUR PRIMARY DOCTOR IN THE OFFICE IN 1 WEEK---CALL THE OFFICE TO MAKE YOUR APPOINTMENT. -CONTINUE HOME MEDICATIONS USUAL. -USE WALKER FOR WALKING SAFETY---PLEASE DO NOT LOSE YOUR WALKER!! -FOR QUESTIONS OR CONCERNS, CONTACT DR. WEST'S OFFICE. DISCUSS WITH PATIENT WHO AGREE AND VERBALIZED UNDERSTANDING Discharge Plan - Follow Up Plan Condition: GOOD Disposition: HOME/ ROUTINE Instructions: Smoking: Not Just Harmful to Your Lungs and Heart, Urinary Tract Infection, Adult (DC), Quitting Smoking, Schizophrenia (DC) Additional Instructions: -FOLLOW UP WITH DR. WEST OR YOUR PRIMARY DOCTOR IN THE OFFICE IN 1 WEEK--- CALL THE OFFICE TO MAKE YOUR APPOINTMENT. -CONTINUE HOME MEDICATIONS USUAL. -USE WALKER FOR WALKING SAFETY---PLEASE DO NOT LOSE YOUR WALKER!! -FOR QUESTIONS OR CONCERNS, CONTACT DR. WEST'S OFFICE. Referrals: Coy West MD [Staff Provider] -
== END 2017-09-10 11:35 | disposition home or self-care (01) ==
LOC: C.ER 19:13 → C.9E 20:19 → C.5S 22:23
PROVIDERS: ADMIT Internal Medicine; ATTEND Internal Medicine
DX: F20.9 Schizophrenia, unspecified (principal); Z59.0 Homelessness; N39.0 Urinary tract infection, site not specified; I10 Essential (primary) hypertension; F31.9 Bipolar disorder, unspecified; E11.9 Type 2 diabetes mellitus without complications; F17.200 Nicotine dependence, unspecified, uncomplicated
CPT/HCPCS: 82948; 96372; 99283; G0378; J1650

== ENCOUNTER 2018-06-12 13:38 | Emergency (ER) | payer MEDICARE, MEDICAID ==
[2018-06-12 13:38] VITALS: BMI 29.9
[2018-06-12] MEDS ORDERED: Sodium Chloride 0.9% 1,000 ML IV ONE (14:19)
--- NOTE | 2018-06-12 14:35 | C.PDOC ---
History Of Present Illness 68 y/o female,w/PMhx of schizophrenia and chronic pain syndrome, presents to the ER for evaluation because she "just don't feel well." Patient states that she has pain in her legs and she has difficulty ambulating. Patient is also co mplaining of abdominal pain. She notes that her doctor recently changed her sleep medications, she feels very sleepy.Denies having fever,chills, nausea, and vomiting. Of note, patient is hard to understand because she is lethargic and has slurred speech. Time Seen by Provider: 06/12/18 14:06 Chief Complaint (Nursing): Pain, Chronic History Per: Patient History/Exam Limitations: no limitations Onset/Duration Of Symptoms: Days Current Symptoms Are (Timing): Still Present Severity: Moderate Past Medical History Reviewed: Historical Data, Nursing Documentation, Vital Signs Vital Signs: Last Vital Signs Temp 97.5 F L 06/12/18 13:48 Pulse 97 H 06/12/18 13:48 Resp 20 06/12/18 13:48 BP 118/79 06/12/18 13:48 Pulse Ox 96 06/12/18 13:48 - Medical History PMH: Anxiety, Arthritis (BACL), Bipolar Disorder, Cardia Arrhythmia (TACHYCARDIA), Depression, Diabetes, HTN, Schizophrenia Denies: Hepatitis, HIV, Seizures, Sexually Transmitted Disease Other Surgeries: Hx of surgeries - [facility] Procedures INSERTION OF INFUSION DEV INTO SUP VENA CAVA, PERC APPROACH (08/25/17) ULTRASONOGRAPHY OF SUPERIOR VENA CAVA, GUIDANCE (08/25/17) Family History: States: No Known Family Hx - Social History Hx Tobacco Use: Yes Hx Alcohol Use: No Hx Substance Use: No - Immunization History Hx Influenza Vaccination: Yes Hx Pneumococcal Vaccination: Yes Review Of Systems Constitutional: Negative for: Fever, Chills Cardiovascular: Negative for: Chest Pain Respiratory: Negative for: Shortness of Breath Gastrointestinal: Positive for: Abdominal Pain. Negative for: Nausea, Vomiting Musculoskeletal: Positive for: Leg Pain Physical Exam - Physical Exam Appears: Unkempt, Other (morbidly obese, lethargic, laying on bed, smells like urine) Skin: Normal Color, Warm, Dry Head: Atraumatic, Normacephalic Eye(s): bilateral: Normal Inspection Nose: Normal Oral Mucosa: Moist Neck: Supple Chest: Symmetrical Cardiovascular: Rhythm Regular Respiratory: Normal Breath Sounds, No Rales, No Rhonchi, No Wheezing Gastrointestinal/Abdominal: Normal Exam, Soft, No Tenderness, No Guarding, No Rebound Extremity: Normal ROM, No Tenderness Neurological/Psych: Oriented x3, Normal Speech ED Course And Treatment - Laboratory Results Result Diagrams: 06/12/18 15:08 06/12/18 15:08 Lab Interpretation: Abnormal (K+ 2.9, Mg, 1.1, Glucose 231, UA WBC 32 with 2+ leukocyte esterase, UDS + benzos) O2 Sat by Pulse Oximetry: 96 (RA) Pulse Ox Interpretation: Normal - Other Rad L/S spine and bilateral hips X-Ray: Viewed By Me, Read By Radiologist Interpretation: Normal, No evidence of fracture or dislocation. Progress Note: 5:10 Patient remains lethargic but with stable vital signs. Reevaluation Time: 19:22 Reassessment Condition: Improved (Patient more awake and alert.) Medical Decision Making Medical Decision Making: Plan: --Labs --UA --IV Fluids Disposition Counseled Patient/Family Regarding: Studies Performed, Diagnosis, Need For Followup, Rx Given - Disposition Referrals: [facility] [Outside] Disposition: HOME/ ROUTINE Disposition Time: 19:23 Condition: IMPROVED Additional Instructions: Follow up with your primary provider to better manage your medications. Prescriptions: Nitrofurantoin Macrocrystals [Macrobid] 1 cap PO BID #14 cap Instructions: Urinary Tract Infection, Adult (DC), Prescription Drug Misuse Forms: [facility] (Yoruba) - Clinical Impression Clinical Impression: Benzodiazepine abuse, UTI (urinary tract infection) - Scribe Statement The provider has reviewed the documentation as recorded by the Cady Stokes Provider Attestation: All medical record entries made by the Scribe were at my direction and personally dictated by me. I have reviewed the chart and agree that the record accurately reflects my personal performance of the history, physical exam, medical decision making, and the department course for this patient. I have also personally directed, reviewed, and agree with the discharge instructions and disposition.
[2018-06-12 15:13] LABS: BASO % 0.3 % (0.0-2.0); EOS % 0.4 % (0.0-4.0); LYMPH # 1.8 K/uL (1.0-4.3); LYMPH % 17.4 % (20.0-40.0); MEAN CELL VOLUME 84.4 fL (81.0-99.0); MEAN CORPUSCULAR HGB CONC 33.2 g/dL (33.0-37.0); MEAN PLATELET VOLUME 9.3 fL (7.2-11.7); MONO # 0.7 K/uL (0.0-0.8); MONO % 6.4 % (0.0-10.0); NEUT # 7.7 K/uL (1.8-7.0); NEUT % 75.5 % (50.0-75.0); RBC 4.58 Mil/uL (3.80-5.20); RED CELL DISTRIBUTION WIDTH 14.1 % (11.5-14.5)
[2018-06-12 15:14] LABS: HEMOGLOBIN 12.8 g/dL (11.0-16.0); WHITE BLOOD COUNT 10.2 K/uL (4.8-10.8)
[2018-06-12 15:27] LABS: ALB/GLOB RATIO 1.3 (1.0-2.1); ALBUMIN 4.2 g/dL (3.5-5.0); ALT/SGPT 32 U/L (9-52); AST/SGOT 50 U/L (14-36); BLOOD UREA NITROGEN 19 mg/dL (7-17); CALCIUM 9.2 mg/dl (8.6-10.4); GFR NON-AFRICAN AMERICAN > 60
[2018-06-12] MEDS ORDERED: Potassium Chloride 20 mEq ER Tab PO STA (15:34)
[2018-06-12] MEDS ORDERED: Magnesium Oxide 400 mg Tab UD PO STA (15:35)
[2018-06-12 15:46] LABS: SQUAMOUS EPITHIAL 7 /hpf (0-5); URINE BACTERIA FEW (<OCC); URINE BILIRUBIN NEGATIVE (NEGATIVE); URINE BLOOD 1+ (NEGATIVE); URINE CLARITY Hazy (Clear); URINE COLOR Amber (YELLOW); URINE GLUCOSE (UA) NORMAL (Normal); URINE LEUKOCYTE ESTERASE 2+ Leu/uL (Negative); URINE PROTEIN 1+ mg/dL (NEGATIVE); URINE UROBILINOGEN NORMAL mg/dL (0.2-1.0)
[2018-06-12 16:07] LABS: BARBITURATES, UR NEGATIVE (NEGATIVE); OPIATES, UR NEGATIVE (NEGATIVE); PHENCYCLIDINE, UR NEGATIVE (NEGATIVE)
[2018-06-12 16:15] LABS: BENZODIAZEPINES, UR POSITIVE (NEGATIVE)
--- NOTE | 2018-06-12 16:16 | RAD ---
PROCEDURE: Radiographs of the pelvis and bilateral hips HISTORY: pain ? injury COMPARISON: None. FINDINGS: BONES: Pelvis: Unremarkable. Right hip:Unremarkable. Left hip:Unremarkable. JOINTS: Right hip: Unremarkable. Left hip: Unremarkable. Sacroiliac Joints: Unremarkable. Pubic symphysis: Unremarkable. SOFT TISSUES: Normal. OTHER FINDINGS: None. IMPRESSION: Unremarkable radiographs of the hips and pelvis.
--- NOTE | 2018-06-12 16:20 | RAD ---
Date of service: 06/12/2018 PROCEDURE: Radiographs of the Lumbar Spine. HISTORY: pain ? injury COMPARISON: No prior. FINDINGS: BONES: Normal alignment. No listhesis. No fracture. DISC SPACES: Unremarkable. OTHER FINDINGS: None. IMPRESSION: Unremarkable radiographs of the lumbar spine.
[2018-06-12] MEDS ORDERED: Sodium Chloride 0.9% 1,000 ML ONE (17:00)
[2018-06-12] MEDS ORDERED: Potassium Chloride 20 mEq ER Tab PO ONE (17:09)
[2018-06-13 00:33] VITALS: BP 121/58; PULSE 76; RESP 20; TEMP 97.8; O2SAT 97
== END 2018-06-13 05:26 | disposition home or self-care (01) ==
LOC: C.ER 13:38
DX: N39.0 Urinary tract infection, site not specified (principal); F13.10 Sedative, hypnotic or anxiolytic abuse, uncomplicated
CPT/HCPCS: 72100; 73522; 80053; 81001; 82550; 82948; 83735; 85025; 87086; 87181; 99285; G0480; J7030